=== PATIENT | male | born 1960 | race Caucasian/White ===

== ENCOUNTER 2017-06-06 11:02 | Emergency (ER) | payer SELFPAY ==
--- NOTE | 2017-06-06 11:49 | ER Document Report ---
ED Medical Screen (RME) - General Chief Complaint: Breathing Difficulty Stated Complaint: BREATHING DIFFICULTY Time Seen by Provider: 06/06/17 11:47 Notes: Patient states she has a history of COPD and congestive heart failure. He states he has had no medication since December 2016. He now complains of severe shortness of breath chest tightness and leg swelling. TRAVEL OUTSIDE OF THE [place] IN LAST 30 DAYS: No - Related Data Allergies/Adverse Reactions: No Known Allergies Allergy (Verified 06/06/17 11:08) Past Medical History - Social History Chew tobacco use (# tins/day): No Frequency of alcohol use: Occasional Drug Abuse: None - Past Medical History Cardiac Medical History: Reports: Hx Congestive Heart Failure Pulmonary Medical History: Reports: Hx COPD Renal/ Medical History: Denies: Hx Peritoneal Dialysis Psychiatric Medical History: Denies: Hx Depression Past Surgical History: Reports: Hx Appendectomy, Hx Cardiac Surgery - heart surgery at age 16 - Immunizations Hx Diphtheria, Pertussis, Tetanus Vaccination: No Physical Exam - Vital signs Vitals: Temp Pulse Resp BP Pulse Ox 98.2 F 87 20 131/87 H 94 06/06/17 11:30 06/06/17 11:30 06/06/17 11:30 06/06/17 11:30 06/06/17 11:30 Course - Vital Signs Vital signs: Temp Pulse Resp BP Pulse Ox 98.2 F 87 20 131/87 H 94 06/06/17 11:30 06/06/17 11:30 06/06/17 11:30 06/06/17 11:30 06/06/17 11:30
--- NOTE | 2017-06-06 11:59 | ER Document Report ---
ED General - General Chief Complaint: Breathing Difficulty Stated Complaint: BREATHING DIFFICULTY Time Seen by Provider: 06/06/17 11:47 Notes: Patient is a 56-year-old male who presents emergency department with a chief complaint of chest tightness, shortness of breath, dyspnea on exertion for the past 2 weeks. He denies any productive cough, chest pain, nausea, vomiting, epigastric pain, pleurisy. Patient states that he has a history of congestive heart failure, COPD. Patient states that he used to take medications at home but has not been taking them for the past 6 months. Patient states that he was previously living in [place] to take care of his mother and is recently moved back. States that his primary care is with [facility] but he has not been able to establish follow-up with them to get his home medications. He states that he has been watching his sodium and fluid intake due to his history of CHF. Past medical history significant for COPD, CHF, hypertension Past surgical history significant for previous sternotomy when he was 17 for PDA closure, previous appendectomy Social history admits to half a pack a day, former alcohol user, admits to social marijuana use. 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 TRAVEL OUTSIDE OF THE [place] IN LAST 30 DAYS: No - Related Data Allergies/Adverse Reactions: No Known Allergies Allergy (Verified 06/06/17 11:08) Past Medical History - Social History Smoking Status: Current Every Day Smoker Chew tobacco use (# tins/day): No Frequency of alcohol use: Occasional Drug Abuse: None Family History: Reviewed & Not Pertinent Patient has suicidal ideation: No Patient has homicidal ideation: No - Past Medical History Cardiac Medical History: Reports: Hx Congestive Heart Failure Pulmonary Medical History: Reports: Hx COPD Renal/ Medical History: Denies: Hx Peritoneal Dialysis Psychiatric Medical History: Denies: Hx Depression Past Surgical History: Reports: Hx Appendectomy, Hx Cardiac Surgery - heart surgery at age 16 - Immunizations Hx Diphtheria, Pertussis, Tetanus Vaccination: No Review of Systems - Review of Systems Constitutional: No symptoms reported Cardiovascular: No symptoms reported Respiratory: See HPI Gastrointestinal: No symptoms reported Musculoskeletal: No symptoms reported Neurological/Psychological: No symptoms reported -: Yes All other systems reviewed and negative Physical Exam - Vital signs Vitals: Temp Pulse Resp BP Pulse Ox 98.2 F 87 20 131/87 H 94 06/06/17 11:30 06/06/17 11:30 06/06/17 11:30 06/06/17 11:30 06/06/17 11:30 - Notes Notes: PHYSICAL EXAM GENERAL: Alert, interacts well. HEAD: Normocephalic, atraumatic. EYES: Pupils equal, round, and reactive to light. Extraocular movements intact. ENT: Oral mucosa moist, tongue midline. NECK: Full range of motion. Supple. Trachea midline. LUNGS: Diffuse wheezes and rhonchi without rales. No rales. No respiratory distress. HEART: Regular rate and rhythm. No murmurs, gallops, or rubs. ABDOMEN: Soft, nondistended, nontender. No guarding, rebound, or rigidity.. Bowel sounds present in all 4 quadrants. EXTREMITIES: Moves all 4 extremities spontaneously. No edema, radial and dorsalis pedis pulses 2/4 bilaterally. No cyanosis. NEUROLOGICAL: Alert and oriented x4. Normal speech. PSYCH: Normal affect, normal mood. SKIN: Warm, dry, normal turgor. No rashes or lesions noted. Course - Re-evaluation Re-evalutation: 06/06/17 14:26 Patient is a 56-year-old male who is hemodynamically stable, no acute distress and afebrile. Presentation is consistent with COPD exacerbation in the setting of chronic congestive heart failure. Patient does not meet requirements at this time for inpatient care of his CHF. Patient does not appear to be fluid overloaded at this time. Patient states he feels much better and chest tightness resolved after multiple duo nebs, prednisone administered in the department. Patient was able to ambulate without any clinical tachypnea, tachycardia noted. Patient requesting to be discharged at this time. Discussed with him strict return precautions and otherwise had case management establish a relationship to see if he qualifies for Medicaid versus criteria for [facility] follow-[facility]. - Vital Signs Vital signs: Temp Pulse Resp BP Pulse Ox 97.6 F 99 21 H 128/86 H 94 06/06/17 13:30 06/06/17 13:37 06/06/17 13:37 06/06/17 13:30 06/06/17 13:37 - Laboratory Result Diagrams: 06/06/17 11:55 06/06/17 11:55 Laboratory results interpreted by me: 06/06/17 11:55 RBC 4.14 L MCV 99 H RDW 14.1 H - Diagnostic Test Radiology reviewed: Image reviewed, Reports reviewed - EKG Interpretation by Me EKG shows normal: Sinus rhythm Rate: Normal Rhythm: NSR When compared to previous EKG there are: No significant change Discharge - Discharge Clinical Impression: COPD exacerbation Condition: Good Disposition: HOME, SELF-CARE Additional Instructions: Chronic Obstructive Lung Disease You have chronic obstructive lung disease (COPD). The symptoms come from emphysema (damage to small airways, with trapping of air in large sacks in the lung) and chronic bronchitis (repeated infection and damage to larger airways). The cause is almost always cigarette smoking, although dust exposure, asthma, and infections contribute. You should avoid fumes, dust, and smoke (especially tobacco smoke). Your condition will flare from time to time. There is no cure, but the symptoms can be treated. Bronchodilators (asthma medicine) are often helpful. Antibiotics help when infection is present. When shortness of breath is severe, we may prescribe cortisone medication. If medicine doesn't help enough, we can arrange for you to have an oxygen tank at home. Notify your doctor at once if sputum becomes thick, foul, or bloody, if you develop a fever or chest pain, or if your shortness of breath worsens. Our test case developer will be in contact to establish primary care for you. Please be sure to complete your medicaid application Prescriptions: Albuterol Sulfate [Proair HFA Inhalation Aerosol 8.5 gm MDI] 2 puff IH Q4H PRN # 1 mdi PRN Reason: Prednisone [Deltasone 20 mg Tablet] 3 tab PO DAILY 5 Days tablet Forms: Smoking Cessation Education Referrals: [facility] [Primary Care Provider] - Follow up in 3-5 days [facility] [Provider Group] - Follow up in 3-5 days
[2017-06-06 12:16] LABS: ABSOLUTE BASOPHILS # (AUTO) 0.1 10^3/uL (0.0-0.2); ABSOLUTE EOSINOPHILS # (AUTO) 0.4 10^3/uL (0.0-0.6); ABSOLUTE LYMPHOCYTES (AUTO) 1.4 10^3/uL (0.5-4.7); ABSOLUTE MONOCYTES (AUTO) 0.7 10^3/uL (0.1-1.4); ABSOLUTE NEUT (AUTO) 4.9 10^3/uL (1.7-8.2); BASOPHILS % (AUTO) 0.8 % (0-2); EOSINOPHILS % (AUTO) 5.4 % (0-6); HEMATOCRIT 40.8 % (37.9-51.0); HEMOGLOBIN 13.6 g/dL (13.5-17.0); LYMPHOCYTES % (AUTO) 19.2 % (13-45); MEAN CORPUSCULAR HEMOGLOBIN 32.8 pg (27.0-33.4); MEAN CORPUSCULAR HGB CONC 33.3 g/dL (32.0-36.0); MEAN CORPUSCULAR VOLUME 99 fl (80-97); MONOCYTES % (AUTO) 8.9 % (3-13); PLATELET COUNT 254 10^3/uL (150-450); RED BLOOD COUNT 4.14 10^6/uL (4.35-5.55); RED CELL DISTRIBUTION WIDTH 14.1 % (11.5-14.0); SEGMENTED NEUTROPHILS % (AUTO) 65.7 % (42-78); TOTAL CELLS COUNTED % (AUTO) 100 %; WHITE BLOOD COUNT 7.5 10^3/uL (4.0-10.5)
--- NOTE | 2017-06-06 12:19 | RADIOLOGY REPORT (SQ) ---
EXAM DESCRIPTION: CHEST PA/LAT COMPLETED DATE/TIME: 06/06/2017 12:10 pm REASON FOR STUDY: sob COMPARISON: Chest films 10/24/2015, 09/08/2015 CT angio chest 04/19/2013 EXAM PARAMETERS: NUMBER OF VIEWS: two views TECHNIQUE: Digital Frontal and Lateral radiographic views of the chest acquired. RADIATION DOSE: NA LIMITATIONS: none FINDINGS: LUNGS AND PLEURA: Few Juan lines at both lung bases with trace fluid in the major and mi nor fissures, question very mild fluid overload with interstitial edema. Lungs are otherwise hyperinflated and hyperlucent but clear. MEDIASTINUM AND HILAR STRUCTURES: No masses or contour abnormalities. HEART AND VASCULAR STRUCTURES: Moderate to marked cardiomegaly, old sternotomy BONES: Osteoporotic HARDWARE: None in the chest. OTHER: No other significant finding. IMPRESSION: Juan lines at both bases, trace fluid in the major and minor fissures. Suspect mild f luid overload or congestive failure TECHNICAL DOCUMENTATION: JOB ID: [id number] [employer]- All Rights Reserved
[2017-06-06] MEDS ORDERED: IPRATROPIUM/ALBUTEROL 0.5-2.5 MG/3 ML AMPUL NEB ONE (12:26)
[2017-06-06] MEDS ORDERED: PREDNISONE 20 MG TABLET PO ONE (12:26)
[2017-06-06 12:34] LABS: ALANINE AMINOTRANSFERASE 27 U/L (21-72); ALBUMIN 4.2 g/dL (3.5-5.0); ALKALINE PHOSPHATASE 45 U/L (38-126); ANION GAP 9 (5-19); ASPARTATE AMINO TRANSFERASE 29 U/L (17-59); BILIRUBIN,DIRECT 0.3 mg/dL (0.0-0.4); BILIRUBIN,TOTAL 0.7 mg/dL (0.2-1.3); BLOOD UREA NITROGEN 16 mg/dL (7-20); CALCIUM 9.7 mg/dL (8.4-10.2); CARBON DIOXIDE 30 mmol/L (22-30); CHLORIDE 102 mmol/L (98-107); GLUCOSE 81 mg/dL (75-110); POTASSIUM 4.5 mmol/L (3.6-5.0); SODIUM 140.7 mmol/L (137-145); TOTAL PROTEIN 6.9 g/dL (6.3-8.2)
[2017-06-06 12:56] LABS: NT PRO BNP 453 pg/mL (5-900)
[2017-06-06 12:57] LABS: TROPONIN I < 0.012 ng/mL
[2017-06-06] MEDS: ALBUTEROL SULFATE 0.083% NEB 2.5 MG/3 ML AMPUL NEB SCH ×2 (13:01→13:20)
[2017-06-06 14:08] VITALS: BP 128/86
--- NOTE | 2017-06-06 21:23 | EKG REPORT ---
SEVERITY:- ABNORMAL ECG - SINUS RHYTHM NONSPECIFIC INTRAVENTRICULAR CONDUCTION DELAY LEFT VENTRICULAR HYPERTROPHY : Confirmed by: Cesilia Akins 06-Jun-2017 21:22:16
== END 2017-06-06 14:43 | disposition home or self-care (01) ==
LOC: ER 11:02
DX: J44.1 Chronic obstructive pulmonary disease with (acute) exacerbation (principal); F17.210 Nicotine dependence, cigarettes, uncomplicated; I11.0 Hypertensive heart disease with heart failure; I50.9 Heart failure, unspecified
CPT/HCPCS: 93005; 94640 ×2; 99285; 36415; 85025; 80053; 84484; 83880; 71046; 93010; J7512; J7620

== ENCOUNTER 2017-06-23 06:32 | Inpatient (IN) | payer SELFPAY ==
[2017-06-23] MEDS ORDERED: ALBUTEROL SULFATE 0.083% NEB 2.5 MG/3 ML AMPUL NEB ONE (06:37)
[2017-06-23] MEDS ORDERED: IPRATROPIUM BROMIDE 0.02% NEB 0.5 MG/2.5 ML AMPUL NEB ONE (06:37)
[2017-06-23] MEDS ORDERED: IPRATROPIUM/ALBUTEROL 0.5-2.5 MG/3 ML AMPUL NEB ONE (06:38)
--- NOTE | 2017-06-23 06:38 | ER Document Report ---
ED Respiratory Problem - General Stated Complaint: BREATHING DIFFICULTY Time Seen by Provider: 06/23/17 06:35 Notes: 56-year-old male to the emergency department chief complaint of difficulty breathing. History of COPD. History of CHF. States that he does not have regular medical care. Has not been to a doctor in almost a year. Was supposed to be on multiple medications for his heart but has been taking it. Does smoke cigarettes as well as marijuana. Has been drinking tonight as well. EMS was called when he felt like he could not breathe. Apparently had low oxygen saturations on arrival. Breathing treatment was started. Solu-Medrol was given in route. IV established. At this time patient with oxygen saturations of 88%. Patient seen immediately on arrival. Patient denies any chest pain at this time. Denies any abdominal pain. Denies any fever. No previous history of DVT or pulmonary embolism. Patient was supposed to be on digoxin, lisinopril , furosemide, aspirin but has not taken any of this in several months. TRAVEL OUTSIDE OF THE [place] IN LAST 30 DAYS: No - HPI Patient complains to provider of: CHF, COPD, Short of breath Onset: Last week Duration: Continuous, Worse/persistent Severity: Moderate Pain Level: 3 Context: Hx CHF, Hx COPD. denies: DVT Short of Breath: Severe Cough: Nonproductive Sputum amount: None - Related Data Allergies/Adverse Reactions: No Known Allergies Allergy (Verified 06/06/17 11:08) Past Medical History - General Information source: Patient - Social History Smoking Status: Current Every Day Smoker Cigarette use (# per day): Yes Frequency of alcohol use: Social Drug Abuse: Marijuana Lives with: Alone Family History: Reviewed & Not Pertinent - Past Medical History Cardiac Medical History: Reports: Hx Congestive Heart Failure Pulmonary Medical History: Reports: Hx COPD Renal/ Medical History: Denies: Hx Peritoneal Dialysis Psychiatric Medical History: Denies: Hx Depression Past Surgical History: Reports: Hx Appendectomy, Hx Cardiac Surgery - heart surgery at age 16 - Immunizations Hx Diphtheria, Pertussis, Tetanus Vaccination: No Review of Systems - Review of Systems Constitutional: denies: Fever, Malaise, Weakness EENT: denies: Blurred vision, Throat pain, Throat swelling Cardiovascular: Heart racing, Orthopnea, Dyspnea. denies: Chest pain, Palpitations, Syncope, Edema Respiratory: Cough, Short of breath, Wheezing Gastrointestinal: denies: Abdominal pain, Diarrhea, Nausea Genitourinary: denies: Burning, Dysuria, Discharge Musculoskeletal: denies: Back pain, Gout, Joint pain, Joint swelling, Muscle pain Skin: denies: Lesions, Rash Hematologic/Lymphatic: denies: Anemia, Blood clots, Easy bleeding, Easy bruising Neurological/Psychological: denies: Depression, Weakness, Headaches, Numbness Physical Exam - Vital signs Vitals: Resp BP Pulse Ox 22 H 121/91 H 86 L 06/23/17 06:38 06/23/17 06:38 06/23/17 06:38 Interpretation: Tachycardic - General General appearance: Appears well, Alert - HEENT Head: Normocephalic Eyes: Normal - Respiratory Respiratory status: No respiratory distress Chest status: Nontender Breath sounds: Decreased air movement, Nonproductive cough, Wheezing Chest palpation: Normal - Cardiovascular Rhythm: Tachycardia Heart sounds: Normal auscultation Murmur: No - Abdominal Inspection: Normal Distension: No distension Bowel sounds: Normal Tenderness: Nontender Organomegaly: No organomegaly - Back Back: Normal, Nontender - Extremities General upper extremity: Normal inspection, Nontender, Normal color, Normal ROM , Normal temperature General lower extremity: Normal inspection, Nontender, Normal color, Normal ROM , Normal temperature, Normal weight bearing. No: Nicolle's sign - Neurological Neuro grossly intact: Yes Cognition: Normal Orientation: AAOx4 Shivam Coma Scale Eye Opening: Spontaneous [place] Coma Scale Verbal: Oriented [place] Coma Scale Motor: Obeys Commands [place] Coma Scale Total: 15 Speech: Normal Motor strength normal: LUE, RUE, LLE, RLE Sensory: Normal - Psychological Associated symptoms: Normal affect, Normal mood - Skin Skin Temperature: Warm Skin Moisture: Dry Skin Color: Normal Course - Re-evaluation Re-evalutation: 06/23/17 06:54 Patient hypoxic on arrival with oxygen saturations of 88% on room air. Patient given hour-long breathing treatment. Solu-Medrol given in route. Will order cardiac labs including BNP, troponin, CK CK-MB, chest x-ray and reassess. 06/23/17 08:31 Hypoxic when taking off oxygen. Has CHF and COPD. Patient will need to be admitted at this time. Consulted hospitalist who will admit at this time - Vital Signs Vital signs: Temp Pulse Resp BP Pulse Ox 22 H 116/84 93 06/23/17 07:00 06/23/17 07:00 06/23/17 07:00 - Laboratory Result Diagrams: 06/23/17 06:38 06/23/17 06:38 Laboratory results interpreted by me: 06/23/17 06/23/17 06:38 06:38 RBC 4.05 L MCV 100 H MCH 33.6 H Sodium 130.9 L Chloride 95 L Calcium 8.1 L Total Protein 6.2 L - EKG Interpretation by Me EKG shows normal: Intervals, QRS Complexes, ST-T Waves Rate: Tachycardia [place]/QRS: Left axis deviation Critical Care Note - Critical Care Note Total time excluding time spent on procedures (mins): 35 Comments: Hypoxia, respiratory failure, consultation with specialists Discharge - Discharge Clinical Impression: COPD with exacerbation CHF exacerbation Qualifiers: Heart failure type: unspecified Qualified Code(s): I50.9 - Heart failure, unspecified Disposition: ADMITTED INPATIENT Admitting Provider: Hospitalist - [facility] Unit Admitted: Telemetry
[2017-06-23] MEDS ORDERED: ALBUTEROL SULFATE 0.083% NEB 2.5 MG/3 ML AMPUL NEB SCH (06:53)
[2017-06-23 06:55] LABS: ABSOLUTE EOSINOPHILS # (AUTO) 0.3 10^3/uL (0.0-0.6); ABSOLUTE LYMPHOCYTES (AUTO) 1.5 10^3/uL (0.5-4.7); ABSOLUTE MONOCYTES (AUTO) 0.5 10^3/uL (0.1-1.4); ABSOLUTE NEUT (AUTO) 6.4 10^3/uL (1.7-8.2); BASOPHILS % (AUTO) 0.4 % (0-2); EOSINOPHILS % (AUTO) 3.6 % (0-6); HEMATOCRIT 40.5 % (37.9-51.0); HEMOGLOBIN 13.6 g/dL (13.5-17.0); LYMPHOCYTES % (AUTO) 17.1 % (13-45); MEAN CORPUSCULAR HEMOGLOBIN 33.6 pg (27.0-33.4); MEAN CORPUSCULAR HGB CONC 33.6 g/dL (32.0-36.0); MEAN CORPUSCULAR VOLUME 100 fl (80-97); MONOCYTES % (AUTO) 6.3 % (3-13); PLATELET COUNT 224 10^3/uL (150-450); RED BLOOD COUNT 4.05 10^6/uL (4.35-5.55); RED CELL DISTRIBUTION WIDTH 13.8 % (11.5-14.0); SEGMENTED NEUTROPHILS % (AUTO) 72.6 % (42-78); TOTAL CELLS COUNTED % (AUTO) 100 %; WHITE BLOOD COUNT 8.8 10^3/uL (4.0-10.5)
[2017-06-23 07:22] LABS: ALANINE AMINOTRANSFERASE 28 U/L (21-72); ALKALINE PHOSPHATASE 44 U/L (38-126); ANION GAP 10 (5-19); ASPARTATE AMINO TRANSFERASE 36 U/L (17-59); BILIRUBIN,DIRECT 0.1 mg/dL (0.0-0.4); BILIRUBIN,TOTAL 0.5 mg/dL (0.2-1.3); BLOOD UREA NITROGEN 10 mg/dL (7-20); CALCIUM 8.1 mg/dL (8.4-10.2); CARBON DIOXIDE 26 mmol/L (22-30); CHLORIDE 95 mmol/L (98-107); CREATINE KINASE 143 U/L (55-170); GLUCOSE 104 mg/dL (75-110); POTASSIUM 4.3 mmol/L (3.6-5.0); SODIUM 130.9 mmol/L (137-145); TOTAL PROTEIN 6.2 g/dL (6.3-8.2)
[2017-06-23 07:32] LABS: CREATINE KINASE MB 2.51 ng/mL (<4.55); TROPONIN I 0.022 ng/mL
--- NOTE | 2017-06-23 08:14 | RADIOLOGY REPORT (SQ) ---
EXAM DESCRIPTION: CHEST SINGLE VIEW COMPLETED DATE/TIME: 06/23/2017 7:08 am REASON FOR STUDY: sob COMPARISON: 06/06/2017 EXAM PARAMETERS: NUMBER OF VIEWS: One view. TECHNIQUE: Single frontal radiographic view of the chest acquired. RADIATION DOSE: NA LIMITATIONS: None. FINDINGS: LUNGS AND PLEURA: Small left-sided pleural effusion. Juan B lines present bilaterally i n the lung bases. MEDIASTINUM AND HILAR STRUCTURES: Indistinctness of the pulmonary vasculature HEART AND VASCULAR STRUCTURES: Cardiomegaly, stable given differences in technique. BONES: No acute findings. HARDWARE: Stable appearing sternotomy wires OTHER: No other significant finding. IMPRESSION: Findings consistent with congestive heart failure and small left-sided pleural effusion TECHNICAL DOCUMENTATION: JOB ID: [id number] [employer]- All Rights Reserved Reading location - IP/workstation name: [email or web address]
[2017-06-23] MEDS ORDERED: FUROSEMIDE INJ/PF 20 MG/2 ML SDV IV ONE (08:24)
[2017-06-23] MEDS ORDERED: NITROGLYCERIN 2% OINTMENT 1 GM PACKET TP ONE (08:24)
[2017-06-23] MEDS ORDERED: CEFTRIAXONE 1 GM/D5W RTU 1 GM/50 ML RTUPB IV ONE (08:25)
[2017-06-23] MEDS ORDERED: ONDANSETRON HCL INJ/PF 4 MG/2 ML SDV IV PRN (08:33)
[2017-06-23] MEDS ORDERED: ALBUTEROL SULFATE 0.083% NEB 2.5 MG/3 ML AMPUL NEB PRN (08:33)
[2017-06-23] MEDS ORDERED: ZOLPIDEM TARTRATE 5 MG TABLET PO PRN (08:33)
[2017-06-23] MEDS ORDERED: OXYCODONE-ACETAMINOPHEN 5-325 MG TABLET PO PRN (08:33)
[2017-06-23] MEDS ORDERED: LORAZEPAM INJ 2 MG/1 ML VIAL IV PRN (08:43)
[2017-06-23] MEDS ORDERED: FUROSEMIDE INJ/PF 40 MG/4 ML SDV IV SCH (08:45)
--- NOTE | 2017-06-23 08:46 | EKG REPORT ---
SEVERITY:- ABNORMAL ECG - SINUS TACHYCARDIA NONSPECIFIC INTRAVENTRICULAR CONDUCTION DELAY PROBABLE LEFT VENTRICULAR HYPERTROPHY : Confirmed by: Elliott Patel MD 23-Jun-2017 08:45:34
[2017-06-23] MEDS: FUROSEMIDE INJ/PF 40 MG/4 ML SDV IV SCH ×2 (12:19→21:42)
[2017-06-23] MEDS: ASPIRIN 81 MG TABLET, ENT COATED PO SCH (12:19)
[2017-06-23] MEDS: METHYLPREDNISOLONE INJ 40 MG/1 ML SDV IV SCH ×2 (12:19→21:26)
[2017-06-23] MEDS: ACETAMINOPHEN 325 MG TABLET PO PRN (12:20)
[2017-06-23] MEDS: MULTIVITAMIN TABLET PO SCH (12:20)
[2017-06-23] MEDS: LISINOPRIL 5 MG TABLET PO SCH (12:20)
[2017-06-23] MEDS: METOPROLOL SUCCINATE 25 MG TAB.SR.24H PO SCH (12:21)
[2017-06-23] MEDS: THIAMINE HCL 100 MG TABLET PO SCH (12:21)
[2017-06-23] MEDS: AZITHROMYCIN 250 MG TABLET PO SCH (12:21)
[2017-06-23] MEDS: DOCUSATE SODIUM 100 MG CAPSULE PO SCH (12:22)
[2017-06-23] MEDS ORDERED: NICOTINE 7 MG/24 HR PATCH.TD24 TD PRN (13:06)
--- NOTE | 2017-06-23 13:28 | PDOC H&P ---
History of Present Illness Admission Date/PCP: 06/23/17 08:41 Patient complains of: Shortness of breath worse since last night History of Present Illness: GRETEL MYLES is a 56 year old malePresented to emergency room complaining of having shortness of breath for the past 5-6 month however got worse since last night. Patient states that he went to sleep and upon awakening the shortness of breath was worse. It was so severe that he threw up. He does not describe chest pain. Accordingly he has not been taking his regular medication for the past 6 months. [facility] had [facility] but [facility] had to cancel his appointments in the past. In addition he was not given refill for his medications. He does not have insurance however states that he can go to [facility] and get the medications if he had refills. Most of his care has been rendered by coming to emergency room. Patient denies fever, chills. Patient also denies cough. Patient admits a history of heart surgery due to what it appears to be an valvular heart disease when he was younger. He also admits as to drinking alcohol but denies getting the shakes if he does not drink on a regular basis. He continues smoking and a pack would last night about 2-3 days. Patient reports some improvement. Accordingly he was saturating around 88% when evaluated in emergency room requiring to be placed on oxygen. During the course of evaluation in emergency room patient was treated with Lasix IV, duo nebs, Solu-Medrol, nitro and Rocephin. Due to comorbidities and presentation the hospitalist service was contacted for further evaluation and prompted to admit Past Medical History Cardiac Medical History: Reports: Congestive Heart Failure, Heart Murmur Pulmonary Medical History: Reports: Chronic Obstructive Pulmonary Disease (COPD) EENT Medical History: Reports: None Neurological Medical History: Reports: None Endocrine Medical History: Reports: None Renal/ Medical History: Reports: None Malignancy Medical History: Reports: None GI Medical History: Reports: None Musculoskeltal Medical History: Reports: None Skin Medical History: Reports: None Psychiatric Medical History: Reports: None, Alcohol Dependency, Tobacco Dependency Traumatic Medical History: Reports: None Hematology: Reports: None Infectious Medical History: Reports: None Past Surgical History Past Surgical History: Reports: Appendectomy, Vascular Surgery Social History Information Source: Patient Lives with: Family Smoking Status: Current Every Day Smoker Cigars Per Day: 7 Frequency of Alcohol Use: Occasional Hx Recreational Drug Use: No Drugs: Marijuana Hx Prescription Drug Abuse: No - Advance Directive Resuscitation Status: Full Code Family History Family History: Hypertension. denies: Reviewed & Not Pertinent Parental Family History Reviewed: Yes Children Family History Reviewed: Yes Sibling(s) Family History Reviewed.: Yes Medication/Allergy Home Medications: Albuterol Sulfate [Proair HFA Inhalation Aerosol 8.5 gm MDI] 2 puff IH Q6HP PRN 06/23/17 Aspirin [Aspirin EC] 81 mg PO DAILY 06/23/17 Carvedilol [Coreg 3.125 mg Tablet] 3.125 mg PO Q12 06/23/17 Digoxin [Lanoxin 0.125 mg Tablet] 0.125 mg PO DAILY 06/23/17 Furosemide [Lasix 40 mg Tablet] 40 mg PO DAILY 06/23/17 Lisinopril [Zestril] 5 mg PO DAILY 06/23/17 Potassium Chloride [Klor-Con 10 Meq Tablet.sa] 20 meq PO BID 06/23/17 Allergies/Adverse Reactions: No Known Allergies Allergy (Verified 06/06/17 11:08) Review of Systems Constitutional: PRESENT: fatigue, weakness. ABSENT: chills, fever(s), night sweats Eyes: ABSENT: visual disturbances Ears: ABSENT: hearing changes Nose, Mouth, and Throat: ABSENT: mouth pain, sore throat Cardiovascular: PRESENT: dyspnea on exertion. ABSENT: chest pain Respiratory: PRESENT: dyspnea. ABSENT: cough Gastrointestinal: PRESENT: nausea, vomiting. ABSENT: abdominal pain Genitourinary: ABSENT: dysuria, hematuria Neurological: PRESENT: weakness. ABSENT: dizziness Psychiatric: ABSENT: anxiety Endocrine: ABSENT: polyphagia, polyuria Physical Exam Vital Signs: Temp Pulse Resp BP Pulse Ox 98.5 F 105 H 19 119/84 94 06/23/17 09:29 06/23/17 09:29 06/23/17 09:29 06/23/17 09:29 06/23/17 09:29 Intake & Output 06/22/17 06/23/17 06/24/17 06:59 06:59 06:59 Output Total 600 Balance -600 Results Laboratory Results: 06/23/17 11:06 Lactic Acid 3.4 H Impressions: Chest X-Ray 06/23/17 06:36 IMPRESSION: Findings consistent with congestive heart failure and small left- sided pleural effusion Assessment & Plan - Diagnosis (1) Acute on chronic combined systolic and diastolic CHF (congestive heart failure) Is this a current diagnosis for this admission?: Yes Plan: Patient will be admitted to telemetry unit and will continue with diuresis. Patient will be placed on Toprol-XL and low-dose those lisinopril. Will trend renal. Patient has been advised as to quit drinking alcohol and stop smoking (2) Acute respiratory failure with hypoxia Is this a current diagnosis for this admission?: Yes Plan: Will supplement oxygen and will wean off as tolerated (3) Cardiomyopathy Qualifiers: Cardiomyopathy type: alcoholic Qualified Code(s): I42.6 - Alcoholic cardiomyopathy Is this a current diagnosis for this admission?: Yes Plan: Reviewed old echocardiogram on 2016 and appears more consistent with alcoholic cardiomyopathy. (4) Alcohol abuse Is this a current diagnosis for this admission?: Yes Plan: Patient has been educated about quitting. He will be placed on thiamine, multivitamin and will order Ativan IV as needed for agitation (5) Tobacco abuse Is this a current diagnosis for this admission?: Yes Plan: Patient has been educated about quitting and problems secondary to nicotine such as heart attack, stroke, emphysema, circulation problems, cancer (6) Hyponatremia Is this a current diagnosis for this admission?: Yes Plan: Likely due to fluid overload. We will trend (7) Mitral regurgitation Qualifiers: Cardiac valve disease etiology: etiology unspecified Qualified Code(s): I34.0 - Nonrheumatic mitral (valve) insufficiency Is this a current diagnosis for this admission?: Yes Plan: Will order echocardiogram to see if any progression but this patient may need to be evaluated by cardiology regarding input of replacement (8) Pulmonary hypertension Is this a current diagnosis for this admission?: Yes Plan: May relate to systolic and diastolic dysfunction however I am also concerned about the possibility that may relate to valvular heart disease. Echocardiogram has been requested (9) COPD (chronic obstructive pulmonary disease) Qualifiers: Emphysema type: unspecified Is this a current diagnosis for this admission?: Yes Plan: Patient will be placed on nebulizer treatment, IV steroids. It does not appear to be an exacerbation with leg is usually the case is difficult to separate one problem versus the other - Time Time Spent: 50 to 70 Minutes Medications reviewed and adjusted accordingly: Yes Anticipated discharge: Home Within: within 72 hours - Inpatient Certification Based on my medical assessment, after consideration of the patient's comorbidities, presenting symptoms, or acuity I expect that the services needed warrant INPATIENT care.: Yes I certify that my determination is in accordance with my understanding of Medicare's requirements for reasonable and necessary INPATIENT services [42 CFR 412.3e].: Yes Medical Necessity: Need Close Monitoring Due to Risk of Patient Decompensation, Need For Continuous Telemetry Monitoring, Need for Nebulizer Therapy and Monitoring of Response
[2017-06-23] MEDS: IPRATROPIUM/ALBUTEROL 0.5-2.5 MG/3 ML AMPUL NEB SCH ×2 (13:48→19:51)
[2017-06-23] MEDS: HEPARIN SOD (PORCINE) 5,000 UNIT/ML 1 ML SYRINGE SUBCUT SCH ×2 (15:28→21:26)
[2017-06-23] MEDS: ATORVASTATIN CALCIUM 40 MG TABLET PO SCH (21:26)
[2017-06-24 04:08] LABS: URINE AMPHETAMINES SCREEN NEGATIVE; URINE BARBITURATES SCREEN NEGATIVE; URINE BENZODIAZEPINES SCREEN NEGATIVE; URINE COCAINE SCREEN NEGATIVE; URINE METHADONE SCREEN NEGATIVE; URINE PHENCYCLIDINE SCREEN NEGATIVE
[2017-06-24 04:11] LABS: URINE MARIJUANA (THC) SCREEN UNCONFIRMED POSITIVE
[2017-06-24] MEDS: HEPARIN SOD (PORCINE) 5,000 UNIT/ML 1 ML SYRINGE SUBCUT SCH ×3 (06:21→22:10)
[2017-06-24 06:55] LABS: HEMATOCRIT 38.7 % (37.9-51.0); MEAN CORPUSCULAR HEMOGLOBIN 33.2 pg (27.0-33.4); MEAN CORPUSCULAR HGB CONC 33.5 g/dL (32.0-36.0); MEAN CORPUSCULAR VOLUME 99 fl (80-97); PLATELET COUNT 221 10^3/uL (150-450); RED CELL DISTRIBUTION WIDTH 14.2 % (11.5-14.0); WHITE BLOOD COUNT 12.4 10^3/uL (4.0-10.5)
[2017-06-24 07:09] LABS: ANION GAP 8 (5-19); BLOOD UREA NITROGEN 16 mg/dL (7-20); CALCIUM 8.6 mg/dL (8.4-10.2); CARBON DIOXIDE 34 mmol/L (22-30); CHLORIDE 96 mmol/L (98-107); GLUCOSE 122 mg/dL (75-110); POTASSIUM 4.4 mmol/L (3.6-5.0); SODIUM 137.8 mmol/L (137-145)
[2017-06-24 07:49] LABS: ABSOLUTE LYMPHOCYTES# (MANUAL) 0.5 10^3/uL (0.5-4.7); ABSOLUTE MONOCYTES # (MANUAL) 0.6 10^3/uL (0.1-1.4); ABSOLUTE NEUTROPHILS# (MANUAL) 11.3 10^3/uL (1.7-8.2); BAND NEUTROPHILS % (MANUAL) 2 % (3-5); BASOPHILS % (MANUAL) 0 % (0-2); EOSINOPHILS % (MANUAL) 0 % (0-6); LYMPHOCYTES % (MANUAL) 4 % (13-45); MONOCYTES % (MANUAL) 5 % (3-13); PLATELET COMMENT ADEQUATE; SEGMENTED NEUTROPHILS % (MAN) 89 % (42-78); TOTAL CELLS COUNTED 100
[2017-06-24 07:50] LABS: RBC MORPHOLOGY COMMENT NORMO-CYTIC/CHROMIC
[2017-06-24] MEDS: IPRATROPIUM/ALBUTEROL 0.5-2.5 MG/3 ML AMPUL NEB SCH ×3 (08:09→19:58)
[2017-06-24] MEDS ORDERED: FUROSEMIDE INJ/PF 40 MG/4 ML SDV IV SCH (08:50)
[2017-06-24] MEDS: MULTIVITAMIN TABLET PO SCH (10:09)
[2017-06-24] MEDS: AZITHROMYCIN 250 MG TABLET PO SCH (10:10)
[2017-06-24] MEDS: DOCUSATE SODIUM 100 MG CAPSULE PO SCH (10:10)
[2017-06-24] MEDS: METOPROLOL SUCCINATE 25 MG TAB.SR.24H PO SCH (10:10)
[2017-06-24] MEDS: ASPIRIN 81 MG TABLET, ENT COATED PO SCH (10:11)
[2017-06-24] MEDS: NICOTINE 14 MG/24 HR PATCH.TD24 TD SCH (10:11)
[2017-06-24] MEDS: THIAMINE HCL 100 MG TABLET PO SCH (10:11)
[2017-06-24] MEDS: LISINOPRIL 5 MG TABLET PO SCH (10:11)
[2017-06-24] MEDS: FUROSEMIDE INJ/PF 20 MG/2 ML SDV IV SCH ×2 (10:12→22:10)
[2017-06-24] MEDS: FLUTICASONE/SALMETEROL DISKUS 250-50 MCG/DOSE IH SCH ×2 (10:28→22:10)
[2017-06-24] MEDS: ACETAMINOPHEN 325 MG TABLET PO PRN (12:39)
--- NOTE | 2017-06-24 14:12 | PDOC PROGRESS REPORT ---
Subjective Progress Note for:: 06/24/17 Subjective:: Patient refers that his breathing is better. He denies chest pain. Patient inquires about the diagnosis of pneumonia and clarified that that was a concern in emergency room however his presentation was consistent with fluid overload Review of systems All organ systems evaluated and negative except as in subjective All laboratories and significant diagnostics have been reviewed Reason For Visit: ACUTE ON CHRONIC COMBINE CONGESTIVE HEART FAILURE Physical Exam Vital Signs: Temp Pulse Resp BP Pulse Ox 97.4 F 93 16 114/77 100 06/24/17 05:00 06/24/17 05:00 06/24/17 05:00 06/24/17 05:00 06/24/17 05:00 Intake & Output 06/23/17 06/24/17 06/25/17 06:59 06:59 06:59 Intake Total 1348 Output Total 1375 Balance -27 Weight 56.6 kg General appearance: PRESENT: cooperative, well-developed, well-nourished Head exam: PRESENT: atraumatic, normocephalic Eye exam: PRESENT: conjunctiva pink, EOMI, PERRLA Ear exam: PRESENT: normal external ear exam Mouth exam: PRESENT: moist Neck exam: PRESENT: full ROM. ABSENT: JVD, lymphadenopathy, tenderness Respiratory exam: PRESENT: clear to auscultation alisa Cardiovascular exam: PRESENT: RRR. ABSENT: diastolic murmur, systolic murmur Vascular exam: PRESENT: normal capillary refill GI/Abdominal exam: PRESENT: normal bowel sounds, soft. ABSENT: tenderness Extremities exam: PRESENT: full ROM, pedal edema Musculoskeletal exam: ABSENT: ambulatory Neurological exam: PRESENT: alert, awake, oriented to person, oriented to place , oriented to time, oriented to situation, CN II-XII grossly intact Psychiatric exam: PRESENT: appropriate affect, normal mood Skin exam: PRESENT: intact, normal color Results Laboratory Results: 06/24/17 05:35 06/23/17 06/23/17 06/24/17 11:06 15:20 05:35 Sodium 137.8 Potassium 4.4 Chloride 96 L Carbon Dioxide 34 H Anion Gap 8 BUN 16 Creatinine 0.85 Est GFR ( Amer) > 60 Est GFR (Non-Af Amer) > 60 Glucose 122 H Lactic Acid 3.4 H 4.9 H Calcium 8.6 06/23/17 06/23/17 15:20 21:35 Troponin I 0.019 0.014 Impressions: Chest X-Ray 06/23/17 06:36 IMPRESSION: Findings consistent with congestive heart failure and small left- sided pleural effusion Assessment & Plan - Diagnosis (1) Acute on chronic combined systolic and diastolic CHF (congestive heart failure) Is this a current diagnosis for this admission?: Yes Plan: Will continue Toprol-XL and low-dose lisinopril. Will decrease Lasix IV. To request a follow-up chest x-ray for the morning. Need to evaluate if fluid buildup is decreasing in since there is a possibility that he may need thoracentesis (2) Acute respiratory failure with hypoxia Is this a current diagnosis for this admission?: Yes Plan: To wean off oxygen as tolerated (3) Cardiomyopathy Qualifiers: Cardiomyopathy type: alcoholic Qualified Code(s): I42.6 - Alcoholic cardiomyopathy Is this a current diagnosis for this admission?: Yes Plan: Reviewed old echocardiogram on 2016 and appears more consistent with alcoholic cardiomyopathy. (4) Alcohol abuse Is this a current diagnosis for this admission?: Yes Plan: Patient has been educated about quitting. Continue thiamine, multivitamin and Ativan IV as needed for agitation (5) Tobacco abuse Is this a current diagnosis for this admission?: Yes Plan: Patient has been educated about quitting and problems secondary to nicotine such as heart attack, stroke, emphysema, circulation problems, cancer. Continue nicotine patch (6) Hyponatremia Is this a current diagnosis for this admission?: Yes Plan: Due to fluid overload load. Resolved since admission (7) Mitral regurgitation Qualifiers: Cardiac valve disease etiology: etiology unspecified Qualified Code(s): I34.0 - Nonrheumatic mitral (valve) insufficiency Is this a current diagnosis for this admission?: Yes Plan: Echocardiogram ordered on admission to see if any progression (8) Pulmonary hypertension Is this a current diagnosis for this admission?: Yes Plan: May relate to systolic and diastolic dysfunction however I am also concerned about the possibility that may relate to valvular heart disease. Echocardiogram has been requested (9) COPD (chronic obstructive pulmonary disease) Qualifiers: Emphysema type: unspecified Is this a current diagnosis for this admission?: Yes Plan: Continue nebulizer treatments, IV steroids and zithromax. (10) Lactic acidosis Is this a current diagnosis for this admission?: Yes Plan: Improved if there are any further aggressive intervention to do with hypoperfusion in the setting of acute on chronic congestive heart failure - Time Time Spent with patient: 15-24 minutes Medications reviewed and adjusted accordingly: Yes Anticipated discharge: Home Within: within 48 hours - Inpatient Certification Based on my medical assessment, after consideration of the patient's comorbidities, presenting symptoms, or acuity I expect that the services needed warrant INPATIENT care.: Yes I certify that my determination is in accordance with my understanding of Medicare's requirements for reasonable and necessary INPATIENT services [42 CFR 412.3e].: Yes Medical Necessity: Need Close Monitoring Due to Risk of Patient Decompensation, Need For Continuous Telemetry Monitoring
[2017-06-24] MEDS: ATORVASTATIN CALCIUM 40 MG TABLET PO SCH (22:10)
[2017-06-25 05:10] LABS: ABSOLUTE EOSINOPHILS # (AUTO) 0.3 10^3/uL (0.0-0.6); ABSOLUTE LYMPHOCYTES (AUTO) 2.4 10^3/uL (0.5-4.7); ABSOLUTE MONOCYTES (AUTO) 0.8 10^3/uL (0.1-1.4); ABSOLUTE NEUT (AUTO) 7.9 10^3/uL (1.7-8.2); BASOPHILS % (AUTO) 0.3 % (0-2); EOSINOPHILS % (AUTO) 2.4 % (0-6); HEMATOCRIT 39.4 % (37.9-51.0); HEMOGLOBIN 13.1 g/dL (13.5-17.0); LYMPHOCYTES % (AUTO) 20.7 % (13-45); MEAN CORPUSCULAR HEMOGLOBIN 33.1 pg (27.0-33.4); MEAN CORPUSCULAR HGB CONC 33.3 g/dL (32.0-36.0); MEAN CORPUSCULAR VOLUME 99 fl (80-97); MONOCYTES % (AUTO) 7.4 % (3-13); PLATELET COUNT 211 10^3/uL (150-450); RED BLOOD COUNT 3.97 10^6/uL (4.35-5.55); RED CELL DISTRIBUTION WIDTH 14.2 % (11.5-14.0); SEGMENTED NEUTROPHILS % (AUTO) 69.2 % (42-78); TOTAL CELLS COUNTED % (AUTO) 100 %; WHITE BLOOD COUNT 11.4 10^3/uL (4.0-10.5)
[2017-06-25 05:36] LABS: ANION GAP 10 (5-19); BLOOD UREA NITROGEN 21 mg/dL (7-20); CALCIUM 8.5 mg/dL (8.4-10.2); CARBON DIOXIDE 33 mmol/L (22-30); CHLORIDE 96 mmol/L (98-107); GLUCOSE 86 mg/dL (75-110); POTASSIUM 3.9 mmol/L (3.6-5.0); SODIUM 139.1 mmol/L (137-145)
[2017-06-25] MEDS: HEPARIN SOD (PORCINE) 5,000 UNIT/ML 1 ML SYRINGE SUBCUT SCH ×3 (05:44→22:07)
[2017-06-25] MEDS: IPRATROPIUM/ALBUTEROL 0.5-2.5 MG/3 ML AMPUL NEB SCH ×3 (08:17→20:15)
--- NOTE | 2017-06-25 09:28 | RADIOLOGY REPORT (SQ) ---
EXAM DESCRIPTION: CHEST PA/LAT COMPLETED DATE/TIME: 06/25/2017 8:12 am REASON FOR STUDY: for follow up COMPARISON: CT angio chest 04/19/2013 Chest films 09/08/2015, 10/24/2015, 06/06/2017 EXAM PARAMETERS: NUMBER OF VIEWS: two views TECHNIQUE: Digital Frontal and Lateral radiographic views of the chest acquired. RADIATION DOSE: NA LIMITATIONS: none FINDINGS: LUNGS AND PLEURA: Minimal blunting of the posterior costophrenic sulci bilaterally from tr maylin pleural fluid. No acute infiltrates. No pneumothorax. No pulmonary vascular congestion. MEDIASTINUM AND HILAR STRUCTURES: No masses or contour abnormalities. HEART AND VASCULAR STRUCTURES: Stable moderate cardiomegaly with midline sternotomy BONES: No acute findings. HARDWARE: None in the chest. OTHER: No other significant finding. IMPRESSION: Trace fluid or atelectasis in the bilateral costophrenic sulci. Stable cardiomegaly. TECHNICAL DOCUMENTATION: JOB ID: [id number] [employer]- All Rights Reserved Reading location - IP/workstation name: [email or web address]
[2017-06-25] MEDS: DOCUSATE SODIUM 100 MG CAPSULE PO SCH (10:24)
[2017-06-25] MEDS: ASPIRIN 81 MG TABLET, ENT COATED PO SCH (10:25)
[2017-06-25] MEDS: AZITHROMYCIN 250 MG TABLET PO SCH (10:25)
[2017-06-25] MEDS: MULTIVITAMIN TABLET PO SCH (10:26)
[2017-06-25] MEDS: THIAMINE HCL 100 MG TABLET PO SCH (10:26)
[2017-06-25] MEDS: FUROSEMIDE INJ/PF 20 MG/2 ML SDV IV SCH ×2 (10:27→22:07)
[2017-06-25] MEDS: FLUTICASONE/SALMETEROL DISKUS 250-50 MCG/DOSE IH SCH ×2 (10:27→22:07)
[2017-06-25] MEDS: NICOTINE 14 MG/24 HR PATCH.TD24 TD SCH (10:27)
[2017-06-25] MEDS: LISINOPRIL 5 MG TABLET PO SCH (10:28)
[2017-06-25] MEDS: METOPROLOL SUCCINATE 25 MG TAB.SR.24H PO SCH (10:28)
--- NOTE | 2017-06-25 12:03 | PDOC PROGRESS REPORT ---
Subjective Progress Note for:: 06/25/17 Subjective:: feels well no SOB no CP Reason For Visit: ACUTE ON CHRONIC COMBINE CONGESTIVE HEART FAILURE Physical Exam Vital Signs: Temp Pulse Resp BP Pulse Ox 97.5 F 81 16 92/59 L 96 06/25/17 07:52 06/25/17 08:17 06/25/17 08:17 06/25/17 07:52 06/25/17 07:52 Intake & Output 06/24/17 06/25/17 06/26/17 00:59 00:59 00:59 Intake Total 748 1170 Output Total 600 1994 Balance 148 -825 Weight 55.7 kg 56.6 kg 56.6 kg General appearance: PRESENT: no acute distress, well-developed, well-nourished Head exam: PRESENT: atraumatic, normocephalic Eye exam: PRESENT: conjunctiva pink, EOMI, PERRLA. ABSENT: scleral icterus Respiratory exam: PRESENT: rales - rtight base. ABSENT: rhonchi, wheezes Pulses: PRESENT: normal dorsalis pedis pul GI/Abdominal exam: PRESENT: normal bowel sounds, soft. ABSENT: distended, guarding, mass, organolmegaly, rebound, tenderness Rectal exam: PRESENT: deferred Extremities exam: PRESENT: full ROM. ABSENT: calf tenderness, clubbing, pedal edema Neurological exam: PRESENT: alert, awake, oriented to person, oriented to place , oriented to time, oriented to situation, CN II-XII grossly intact. ABSENT: motor sensory deficit Results Laboratory Results: 06/25/17 04:09 06/25/17 04:09 06/25/17 06/25/17 04:09 04:09 WBC 11.4 H RBC 3.97 L Hgb 13.1 L Hct 39.4 MCV 99 H MCH 33.1 MCHC 33.3 RDW 14.2 H Plt Count 211 Seg Neutrophils % 69.2 Lymphocytes % 20.7 Monocytes % 7.4 Eosinophils % 2.4 Basophils % 0.3 Absolute Neutrophils 7.9 Absolute Lymphocytes 2.4 Absolute Monocytes 0.8 Absolute Eosinophils 0.3 Absolute Basophils 0.0 Sodium 139.1 Potassium 3.9 Chloride 96 L Carbon Dioxide 33 H Anion Gap 10 BUN 21 H Creatinine 0.91 Est GFR ( Amer) > 60 Est GFR (Non-Af Amer) > 60 Glucose 86 Calcium 8.5 Magnesium 2.2 06/23/17 06/23/17 15:20 21:35 Troponin I 0.019 0.014 Impressions: Chest X-Ray 06/25/17 00:00 IMPRESSION: Trace fluid or atelectasis in the bilateral costophrenic sulci. Stable cardiomegaly. Assessment & Plan - Time Time Spent with patient: (1) Acute on chronic combined systolic and diastolic CHF (congestive heart failure) Is this a current diagnosis for this admission?: Yes Plan: continue present management repeat echo pending cardiology consult (2) Acute respiratory failure with hypoxia Is this a current diagnosis for this admission?: Yes Plan: To wean off oxygen as tolerated (3) Cardiomyopathy Qualifiers: Cardiomyopathy type: alcoholic Qualified Code(s): I42.6 - Alcoholic cardiomyopathy Is this a current diagnosis for this admission?: Yes Plan: Reviewed old echocardiogram on 2015 EF 35% stress test 10/26/2015 no ischemia repeat echo (4) Alcohol abuse Is this a current diagnosis for this admission?: Yes Plan: Patient has been educated about quitting. Continue thiamine, multivitamin and Ativan IV as needed for agitation (5) Tobacco abuse Is this a current diagnosis for this admission?: Yes Plan: Patient has been educated about quitting and problems secondary to nicotine such as heart attack, stroke, emphysema, circulation problems, cancer. Continue nicotine patch (6) Hyponatremia Is this a current diagnosis for this admission?: Yes Plan: Due to fluid overload load. Resolved since admission (7) Mitral regurgitation Qualifiers: Cardiac valve disease etiology: etiology unspecified Qualified Code(s): I34.0 - Nonrheumatic mitral (valve) insufficiency Is this a current diagnosis for this admission?: Yes Plan: Echocardiogram ordered on admission to see if any progression (8) Pulmonary hypertension Is this a current diagnosis for this admission?: Yes Plan: May relate to systolic and diastolic dysfunction however I am also concerned about the possibility that may relate to valvular heart disease. Echocardiogram has been requested (9) COPD (chronic obstructive pulmonary disease) Qualifiers: Emphysema type: unspecified Is this a current diagnosis for this admission?: Yes Plan: Continue nebulizer treatments, IV steroids and zithromax. (10) Lactic acidosis Is this a current diagnosis for this admission?: Yes Plan: Improved if there are any further aggressive intervention to do with hypoperfusion in the setting of acute on chronic congestive heart failure will repeat BMP in am Time Spent with patient: 25-34 minutes
[2017-06-25] MEDS ORDERED: ONDANSETRON HCL INJ/PF 4 MG/2 ML SDV IV PRN (15:30)
[2017-06-25] MEDS ORDERED: OXYCODONE-ACETAMINOPHEN 5-325 MG TABLET PO PRN (15:30)
--- NOTE | 2017-06-25 19:18 | XCELERA REPORT ---
[address] [address] Transthoracic Echocardiogram Report Name: GRETEL MYLES Age: 56 yrs Gender: Male : 1960 Patient Status: Inpatient Patient Location: [address] [place] [address] Study Date: 06/25/2017 02:59 PM Height: 65 in Weight: 129 lb BSA: 1.6 m2 Procedure: A complete two-dimensional transthoracic echocardiogram was performed (2D, M-mode, spectral and color flow Doppler). The study was technically adequate with some images being suboptimal in quality. Reason For Study: chf Ordering Physician: KIRAN CHOUDHARY Performed By: Carine Silva Interpretation Summary The Ejection Fraction estimate is 30-35% Left ventricular systolic function is moderate to severely reduced. LV diastolic function could not be adequately assessed due to significant valve regurgitation and/or stenosis. There is moderate to severe global hypokinesis of the left ventricle. The left ventricle is moderately to severly dilated. There is normal left ventricular wall thickness. The right ventricular systolic function is normal. The right atrium is mildly dilated. The left atrium is moderately dilated. Probable cortriatrum Interarterial septum not well visualized and not well dopplered. Cannot comment on ASD/PFO presence. There is a moderate to severe amount of mitral regurgitation There is no mitral valve stenosis. No aortic regurgitation is present. There is no aortic valve stenosis There is a trace to mild amount of tricuspid regurgitation Right ventricular systolic pressure is at the upper limits of normal The aortic root is not well visualized. The inferior vena cava appeared normal and decreased > 50% with respiration (RAP 5-10 mmHg) There is no pericardial effusion. MMode/2D Measurements & Calculations RVDd: 1.9 cm LVIDd: 7.1 cm FS: 16.7 % Ao root diam: 3.3 cm IVSd: 0.91 cm LVIDs: 5.9 cm EDV(Teich): 265.7 ml LVPWd: 0.85 cm ESV(Teich): 175.3 ml Ao root area: 8.3 cm2 EF(Teich): 34.0 % LA dimension: 4.6 cm Doppler Measurements & Calculations MV E max lance: MV P1/2t max lance: Ao V2 max: LV V1 max P.7 cm/sec 147.4 cm/sec 127.9 cm/sec 2.4 mmHg MV A max lance: MV P1/2t: 92.4 msec Ao max PG: LV V1 max: 90.5 cm/sec 6.5 mmHg 77.9 cm/sec MV E/A: 1.6 MVA(P1/2t): 2.4 cm2 MV dec slope: 467.3 cm/sec2 PA V2 max: PI end-d lance: TR max lance: 74.5 cm/sec 124.9 cm/sec 240.1 cm/sec PA max P.2 mmHg TR max P.1 mmHg Left Ventricle The left ventricle is moderately to severly dilated. There is normal left ventricular wall thickness. Left ventricular systolic function is moderate to severely reduced. The Ejection Fraction estimate is 30-35%. LV diastolic function could not be adequately assessed due to significant valve regurgitation and/or stenosis. There is moderate to severe global hypokinesis of the left ventricle. Right Ventricle The right ventricle is grossly normal size. There is normal right ventricular wall thickness. The right ventricular systolic function is normal. Atria The right atrium is mildly dilated. The left atrium is moderately dilated. Probable cortriatrum. Interarterial septum not well visualized and not well dopplered. Cannot comment on ASD/PFO presence. Mitral Valve There is mild mitral leaflet calcification. There is no mitral valve stenosis. There is a moderate to severe amount of mitral regurgitation. Aortic Valve The aortic valve is not well visualized secondary to technical limitations. There is no aortic valve stenosis. No aortic regurgitation is present. Tricuspid Valve The tricuspid valve is not well visualized secondary to technical limitations. There is no tricuspid stenosis. There is a trace to mild amount of tricuspid regurgitation. Right ventricular systolic pressure is at the upper limits of normal. Pulmonic Valve The pulmonic valve is not well visualized. Great Vessels The aortic root is not well visualized. The inferior vena cava appeared normal and decreased > 50% with respiration (RAP 5-10 mmHg). Effusions There is no pericardial effusion. : KIRAN CHOUDHARY > Cesilia Akins
--- NOTE | 2017-06-25 19:28 | PDOC CONSULTATION ---
Consultation Consult Date: 06/25/17 Attending physician:: SALLIE LÓPEZ Consult reason:: CHF History of Present Illness Admission Date/PCP: 06/23/17 08:41 Patient complains of: Shortness of breath History of Present Illness: GRETEL MYLES is a 56 year old male admitted through the emergency room complaining of having shortness of breath for the past 5-6 month however got worse since last night. Patient states that he went to sleep and upon awakening the shortness of breath was worse. It was so severe that he threw up. He does not describe chest pain. Accordingly he has not been taking his regular medication for the past 6 months. He had [facility] to [facility] but they had to cancel his appointments in the past. In addition he was not given refill for his medications. He does not have insurance however states that he can go to [facility] and get the medications if he had refills. Most of his care has been rendered by coming to emergency room. Patient denies fever, chills. Patient also denies cough. Patient admits a history of heart surgery due to what it appears to be an valvular heart disease when he was younger. He also admits as to drinking alcohol but denies getting the shakes if he does not drink on a regular basis. He continues smoking and a pack would last night about 2-3 days. Patient reports some improvement. Accordingly he was saturating around 88% when evaluated in emergency room requiring to be placed on oxygen. During the course of evaluation in emergency room patient was treated with Lasix IV, duo nebs, Solu-Medrol, nitro and Rocephin. Due to comorbidities and presentation the hospitalist service was contacted for further evaluation and prompted to admit. Past Medical History Cardiac Medical History: Reports: Congestive Heart Failure, Heart Murmur Pulmonary Medical History: Reports: Chronic Obstructive Pulmonary Disease (COPD) EENT Medical History: Reports: None Neurological Medical History: Reports: None Endocrine Medical History: Reports: None Renal/ Medical History: Reports: None Malignancy Medical History: Reports: None GI Medical History: Reports: None Musculoskeltal Medical History: Reports: None Skin Medical History: Reports: None Psychiatric Medical History: Reports: None, Alcohol Dependency, Tobacco Dependency Denies: Depression Traumatic Medical History: Reports: None Hematology: Reports: None Infectious Medical History: Reports: None Past Surgical History Past Surgical History: Reports: Appendectomy, Vascular Surgery Social History Information Source: Patient Lives with: Family Smoking Status: Current Every Day Smoker Cigars Per Day: 7 Frequency of Alcohol Use: Heavy Hx Recreational Drug Use: Yes Drugs: Marijuana Hx Prescription Drug Abuse: Yes - Advance Directive Resuscitation Status: Full Code Surrogate healthcare decision maker:: Patient's brother is the surrogate decision-maker Family History Family History: Hypertension. denies: Reviewed & Not Pertinent Parental Family History Reviewed: Yes Children Family History Reviewed: Yes Sibling(s) Family History Reviewed.: Yes Medication/Allergy Home Medications: Albuterol Sulfate [Proair HFA Inhalation Aerosol 8.5 gm MDI] 2 puff IH Q6HP PRN 06/23/17 Aspirin [Aspirin EC] 81 mg PO DAILY 06/23/17 Carvedilol [Coreg 3.125 mg Tablet] 3.125 mg PO Q12 06/23/17 Digoxin [Lanoxin 0.125 mg Tablet] 0.125 mg PO DAILY 06/23/17 Furosemide [Lasix 40 mg Tablet] 40 mg PO DAILY 06/23/17 Lisinopril [Zestril] 5 mg PO DAILY 06/23/17 Potassium Chloride [Klor-Con 10 Meq Tablet.sa] 20 meq PO BID 06/23/17 Allergies/Adverse Reactions: No Known Allergies Allergy (Verified 06/06/17 11:08) Review of Systems Review of Systems: Please see history of present illness and past medical history as wall. Constitutional: No fever or chills reported. Head : No recent chronic headaches, recent head injury. Eyes: No recent eye pain, diplopia, redness, discharge, acute visual changes. Ears: No recent chronic ear pain, acute hearing loss, ear discharge. Oral cavity: No recent ulcerations, bleeding, oral cavity discomfort. Neck: No recent acute neck pain reported. Hematologic: No recent easy bruising or bleeding or hematologic malignancy reported. Lymphatic: No recent lymphatic malignancy, chronic lymphadenopathy reported yet Cardiovascular system review: See history of present illness. Patient denied any sustained palpitations, syncope, near syncope. Respiratory system review: No recent chronic cough, hemoptysis, blood clots in the lungs reported. Shortness of breath on exertion Gastrointestinal system review: Negative for any recent acute or chronic abdominal pain, hematemesis, melena, recent change in bowel habits. Genitourinary system review: No recent acute or chronic hematuria, flank pain, UTI etc. reported. Skin system review: Negative for any recent abnormal bruising, no rash, no pruritus reported. Neurologic: No prior history of strokes, mini strokes, seizure disorder. Psychologic: No history of major psychosis or major depression reported. Musculoskeletal: Minor aches and pains reported. No acute joint swelling reported. Endocrine: No recent polyuria, polydipsia, recent heat or cold intolerance. Physical Exam Vital Signs: Temp Pulse Resp BP Pulse Ox 98.0 F 95 17 106/75 96 06/25/17 16:42 06/25/17 16:42 06/25/17 16:42 06/25/17 16:42 06/25/17 16:42 Intake & Output 06/24/17 06/25/17 06/26/17 06:59 06:59 06:59 Intake Total 9100 574 3317 Output Total 1375 1220 1800 Balance -27 -650 913 Weight 56.6 kg 56.6 kg Exam: GENERAL: well-nourished and in no acute distress. Alert and oriented x3 HEAD: Atraumatic, normocephalic. EYES: Pupils equal round and reactive to light, extraocular movements intact, sclera anicteric, conjunctiva are normal. ENT: TMs normal, nares patent, oropharynx clear without exudates. Moist mucous membranes. No oral ulcerations or bleeding gums noted NECK: supple without lymphadenopathy. Trachea is central. No cervical or axillary lymphadenopathy noted. Carotids are 2+, JVD WNL LUNGS: Respiration seems nonlabored, no significant accessory muscle action noted. Breath sounds clear to auscultation bilaterally and equal noted. No wheezes rales or rhonchi noted. No significant dullness noted on percussion. CHEST: Palpation of the chest wall shows no significant chest wall tenderness. No other significant abnormalities noted. HEART: [place] [employer], No PSH, 1/6 VIMAL aortic area, 3/6 goldstein systolic murmur mitral area, no rubs, no gallops. ABDOMEN: Soft, no significant tenderness appreciated, normoactive bowel sounds. No guarding, no rebound. No rigidity noted . No masses appreciated. EXTREMITIES: Pedal pulses are 1-2+, no calf tenderness noted. No clubbing or cyanosis.trace + pedal edema noted NEUROLOGICAL: Focused neurological exam showed no significant neurologic deficit. Normal speech, no focal weakness appreciated. PSYCH: Normal mood, normal affect. Judgment and insight within normal limits. SKIN: No significant ecchymosis, rash, ulcerations or signs of pruritus noted. MUSCULOSKELETAL EXAM: No significant joint swelling noted. Results Laboratory Results: 06/25/17 04:09 06/25/17 04:09 06/25/17 06/25/17 04:09 04:09 WBC 11.4 H RBC 3.97 L Hgb 13.1 L Hct 39.4 MCV 99 H MCH 33.1 MCHC 33.3 RDW 14.2 H Plt Count 211 Seg Neutrophils % 69.2 Lymphocytes % 20.7 Monocytes % 7.4 Eosinophils % 2.4 Basophils % 0.3 Absolute Neutrophils 7.9 Absolute Lymphocytes 2.4 Absolute Monocytes 0.8 Absolute Eosinophils 0.3 Absolute Basophils 0.0 Sodium 139.1 Potassium 3.9 Chloride 96 L Carbon Dioxide 33 H Anion Gap 10 BUN 21 H Creatinine 0.91 Est GFR ( Amer) > 60 Est GFR (Non-Af Amer) > 60 Glucose 86 Calcium 8.5 Magnesium 2.2 06/23/17 06/23/17 15:20 21:35 Troponin I 0.019 0.014 EKG Comments: Sinus tachycardia, LVH Impressions: Chest X-Ray 06/25/17 00:00 IMPRESSION: Trace fluid or atelectasis in the bilateral costophrenic sulci. Stable cardiomegaly. Assessment & Plan - Diagnosis (1) Acute on chronic combined systolic and diastolic CHF (congestive heart failure) Is this a current diagnosis for this admission?: Yes (2) COPD (chronic obstructive pulmonary disease) Qualifiers: Emphysema type: unspecified Is this a current diagnosis for this admission?: Yes (3) Cardiomyopathy Qualifiers: Cardiomyopathy type: alcoholic Qualified Code(s): I42.6 - Alcoholic cardiomyopathy Is this a current diagnosis for this admission?: Yes (4) Mitral regurgitation Qualifiers: Cardiac valve disease etiology: etiology unspecified Qualified Code(s): I34.0 - Nonrheumatic mitral (valve) insufficiency Is this a current diagnosis for this admission?: Yes (5) Tobacco abuse Is this a current diagnosis for this admission?: Yes (6) Marihuana abuse Is this a current diagnosis for this admission?: Yes - Notes Notes: Patient presented with acute shortness of breath most likely related to acute on chronic CHF. Patient is noted to have severe LV systolic dysfunction in addition had severe mitral regurgitation. At this point agree with IV diuretics , optimize therapy for underlying CHF with digoxin, entresto therapy. COPD: Patient has been advised to quit smoking. Cardiomyopathy: Currently 2D echo shows severe LV EF. Will review patient's previous echocardiogram. Patient will be a candidate for defibrillator therapy. Mitral regurgitation: Patient noted to have severe mitral regurgitation on echocardiogram. Recommend vasodilator therapy. Tobacco abuse: Patient advised to quit smoking. Alcohol abuse: Patient was noted to have elevated alcohol level on presentation. Patient has been advised to quit his drinking. CODE STATUS was discussed, patient remains full code. Surrogate decision-maker unchanged. Multiple medical problems were addressed. - Time Time Spent: 50 to 70 Minutes Medications reviewed and adjusted accordingly: Yes
[2017-06-25] MEDS ORDERED: DIGOXIN 0.125 MG TABLET PO ONE (21:00)
[2017-06-25] MEDS: ATORVASTATIN CALCIUM 40 MG TABLET PO SCH (22:07)
[2017-06-26] MEDS: ACETAMINOPHEN 325 MG TABLET PO PRN ×2 (00:02→22:27)
[2017-06-26] MEDS: HEPARIN SOD (PORCINE) 5,000 UNIT/ML 1 ML SYRINGE SUBCUT SCH ×3 (06:31→22:20)
[2017-06-26] MEDS: IPRATROPIUM/ALBUTEROL 0.5-2.5 MG/3 ML AMPUL NEB SCH ×3 (08:42→19:51)
[2017-06-26] MEDS: THIAMINE HCL 100 MG TABLET PO SCH (09:22)
[2017-06-26] MEDS: ASPIRIN 81 MG TABLET, ENT COATED PO SCH (09:22)
[2017-06-26] MEDS: AZITHROMYCIN 250 MG TABLET PO SCH (09:22)
[2017-06-26] MEDS: MULTIVITAMIN TABLET PO SCH (09:23)
[2017-06-26] MEDS: DIGOXIN 0.125 MG TABLET PO SCH (09:24)
[2017-06-26] MEDS: NICOTINE 14 MG/24 HR PATCH.TD24 TD SCH (09:25)
[2017-06-26] MEDS: FUROSEMIDE INJ/PF 20 MG/2 ML SDV IV SCH ×2 (09:25→22:21)
[2017-06-26] MEDS: FLUTICASONE/SALMETEROL DISKUS 250-50 MCG/DOSE IH SCH ×2 (09:25→22:21)
[2017-06-26] MEDS: DOCUSATE SODIUM 100 MG CAPSULE PO SCH (09:32)
[2017-06-26] MEDS: SACUBITRIL/VALSARTAN 24 MG/26 MG TABLET PO SCH ×2 (13:18→22:20)
[2017-06-26] MEDS: METOPROLOL SUCCINATE 25 MG TAB.SR.24H PO SCH (13:18)
--- NOTE | 2017-06-26 17:40 | PDOC PROGRESS REPORT ---
Subjective Progress Note for:: 06/26/17 Reason For Visit: ACUTE ON CHRONIC COMBINE CONGESTIVE HEART FAILURE Physical Exam Vital Signs: Temp Pulse Resp BP Pulse Ox 98.1 F 98 17 114/68 96 06/26/17 15:41 06/26/17 15:41 06/26/17 15:41 06/26/17 15:41 06/26/17 15:41 Intake & Output 06/25/17 06/26/17 06/27/17 00:59 00:59 00:59 Intake Total 1170 3328 12 Output Total 1994 3000 Balance -825 328 12 Weight 56.6 kg 56.6 kg 56.6 kg General appearance: PRESENT: no acute distress, well-developed, well-nourished Head exam: PRESENT: atraumatic, normocephalic Eye exam: PRESENT: conjunctiva pink, EOMI, PERRLA. ABSENT: scleral icterus Respiratory exam: PRESENT: rales - rtight base. ABSENT: rhonchi, wheezes Pulses: PRESENT: normal dorsalis pedis pul GI/Abdominal exam: PRESENT: normal bowel sounds, soft. ABSENT: distended, guarding, mass, organolmegaly, rebound, tenderness Rectal exam: PRESENT: deferred Extremities exam: PRESENT: full ROM. ABSENT: calf tenderness, clubbing, pedal edema Neurological exam: PRESENT: alert, awake, oriented to person, oriented to place , oriented to time, oriented to situation, CN II-XII grossly intact. ABSENT: motor sensory deficit Results Laboratory Results: 06/25/17 04:09 06/25/17 04:09 06/23/17 06/23/17 15:20 21:35 Troponin I 0.019 0.014 Impressions: Chest X-Ray 06/25/17 00:00 IMPRESSION: Trace fluid or atelectasis in the bilateral costophrenic sulci. Stable cardiomegaly. Assessment & Plan - Time Time Spent with patient: (1) Acute on chronic combined systolic and diastolic CHF (congestive heart failure) Is this a current diagnosis for this admission?: Yes Plan: continue present management Echo : EF of 35%; global hypokinesis; moderate MR ; case was discussed with Dr. Akins Patient is a candidate for transfer to [facility] for defibrillator placement; and likely cardiac catheterization and [facility] For reevaluation of mitral regurgitation Patient did not wish to be transferred today We will arrange for transfer in a.m. (2) Acute respiratory failure with hypoxia Is this a current diagnosis for this admission?: Yes Plan: To wean off oxygen as tolerated (3) Cardiomyopathy Qualifiers: Cardiomyopathy type: alcoholic Qualified Code(s): I42.6 - Alcoholic cardiomyopathy Is this a current diagnosis for this admission?: Yes Plan: Reviewed old echocardiogram on 2015 EF 35% stress test 10/26/2015 no ischemia repeat echo (4) Alcohol abuse Is this a current diagnosis for this admission?: Yes Plan: Patient has been educated about quitting. Continue thiamine, multivitamin and Ativan IV as needed for agitation (5) Tobacco abuse Is this a current diagnosis for this admission?: Yes Plan: Patient has been educated about quitting and problems secondary to nicotine such as heart attack, stroke, emphysema, circulation problems, cancer. Continue nicotine patch (6) Hyponatremia Is this a current diagnosis for this admission?: Yes Plan: Due to fluid overload load. Resolved since admission (7) Mitral regurgitation Qualifiers: Cardiac valve disease etiology: etiology unspecified Qualified Code(s): I34.0 - Nonrheumatic mitral (valve) insufficiency Is this a current diagnosis for this admission?: Yes Plan: Echocardiogram ordered on admission to see if any progression (8) Pulmonary hypertension Is this a current diagnosis for this admission?: Yes Plan: May relate to systolic and diastolic dysfunction however I am also concerned about the possibility that may relate to valvular heart disease. Echocardiogram has been requested (9) COPD (chronic obstructive pulmonary disease) Qualifiers: Emphysema type: unspecified Is this a current diagnosis for this admission?: Yes Plan: Continue nebulizer treatments, IV steroids and zithromax. (10) Lactic acidosis Is this a current diagnosis for this admission?: Yes Plan: Improved if there are any further aggressive intervention to do with hypoperfusion in the setting of acute on chronic congestive heart failure We will continue present management Transfer to [facility] cardiac connections in a.m. Time Spent with patient: 25-34 minutes
--- NOTE | 2017-06-26 20:22 | PDOC PROGRESS REPORT ---
Subjective Progress Note for:: 06/26/17 Subjective:: Patient seems to be doing better with gradual improvement. Pt is denying any chest arm or neck discomfort. Patient denying any PND, orthopnea. Patient denied any sustained palpitations, dizziness, syncope, near syncope. Patient denying any fever chills. Patient denying any other significant discomfort. Patient is maintaining sinus rhythm. 2D echo results reviewed with the patient Review of systems: Rest review of systems negative. Medications: Medications have been reviewed. Reason For Visit: ACUTE ON CHRONIC COMBINE CONGESTIVE HEART FAILURE Physical Exam Vital Signs: Temp Pulse Resp BP Pulse Ox 98.1 F 98 17 114/68 96 06/26/17 15:41 06/26/17 15:41 06/26/17 15:41 06/26/17 15:41 06/26/17 15:41 Intake & Output 06/25/17 06/26/17 06/27/17 06:59 06:59 06:59 Intake Total 570 3340 914 Output Total 1220 3000 1275 Balance -650 340 -361 Weight 56.6 kg 56.6 kg Exam: GENERAL: well-nourished and in no acute distress. Alert and oriented x3 HEAD: Atraumatic, normocephalic. EYES: Pupils equal round and reactive to light, extraocular movements intact, sclera anicteric, conjunctiva are normal. ENT: TMs normal, nares patent, oropharynx clear without exudates. Moist mucous membranes. No oral ulcerations or bleeding gums noted NECK: supple without lymphadenopathy. Trachea is central. No cervical or axillary lymphadenopathy noted. Carotids are 2+, JVD WNL LUNGS: Respiration seems nonlabored, no significant accessory muscle action noted. Breath sounds clear to auscultation bilaterally and equal noted. No wheezes rales or rhonchi noted. No significant dullness noted on percussion. CHEST: Palpation of the chest wall shows no significant chest wall tenderness. No other significant abnormalities noted. HEART: [place] [employer] H[employer]ER, No PSH, 1/6 VIMAL aortic area, 2-3/6 goldstein systolic murmur mitral area, no rubs, no gallops. ABDOMEN: Soft, no significant tenderness appreciated, normoactive bowel sounds. No guarding, no rebound. No rigidity noted . No masses appreciated. EXTREMITIES: Pedal pulses are 1-2+, no calf tenderness noted. No clubbing or cyanosis.trace to 1+ pedal edema noted NEUROLOGICAL: Focused neurological exam showed no significant neurologic deficit. Normal speech, no focal weakness appreciated. PSYCH: Normal mood, normal affect. Judgment and insight within normal limits. SKIN: No significant ecchymosis, rash, ulcerations or signs of pruritus noted. MUSCULOSKELETAL EXAM: No significant joint swelling noted. Results Laboratory Results: 06/25/17 04:09 06/25/17 04:09 06/23/17 06/23/17 15:20 21:35 Troponin I 0.019 0.014 Impressions: Chest X-Ray 06/25/17 00:00 IMPRESSION: Trace fluid or atelectasis in the bilateral costophrenic sulci. Stable cardiomegaly. Assessment & Plan - Diagnosis (1) Acute on chronic combined systolic and diastolic CHF (congestive heart failure) Is this a current diagnosis for this admission?: Yes (2) COPD (chronic obstructive pulmonary disease) Qualifiers: Emphysema type: unspecified Is this a current diagnosis for this admission?: Yes (3) Cardiomyopathy Qualifiers: Cardiomyopathy type: alcoholic Qualified Code(s): I42.6 - Alcoholic cardiomyopathy Is this a current diagnosis for this admission?: Yes (4) Mitral regurgitation Qualifiers: Cardiac valve disease etiology: etiology unspecified Qualified Code(s): I34.0 - Nonrheumatic mitral (valve) insufficiency Is this a current diagnosis for this admission?: Yes (5) Tobacco abuse Is this a current diagnosis for this admission?: Yes - Notes Notes: Medical management discussed with the patient. Discussed increased risk of sudden cardiac because of LV systolic dysfunction. Discussed need for tertiary care referral for mitral regurgitation which is noted to be severe and also for evaluation for prophylactic defibrillator placement. Dr. Grimaldo is going to try to call [facility] to arrange for such a transfer if feasible. In the meantime I have asked social services specialist and medical planner to see patient regarding his lack of insurance and if a [employer] could be arranged. Congestive heart failure: Patient presented with acute shortness of breath most likely related to acute on chronic CHF. Patient is noted to have severe LV systolic dysfunction in addition had severe mitral regurgitation. At this point agree with IV diuretics, optimize therapy for underlying CHF with digoxin , entresto therapy. COPD: Patient has been advised to quit smoking. Cardiomyopathy: Currently 2D echo shows severe LV EF. Previous echocardiogram from 2013 shows LVEF of approximately 15%. Patient will be a candidate for defibrillator therapy. Mitral regurgitation: Patient noted to have severe mitral regurgitation on echocardiogram. Recommend vasodilator therapy. Patient started on entresto who seems to be tolerating this well. Tobacco abuse: Patient advised to quit smoking. Alcohol abuse: Patient was noted to have elevated alcohol level on presentation. Patient has been advised to quit his drinking. CODE STATUS was discussed, patient remains full code. Surrogate decision-maker unchanged. Multiple medical problems were addressed. - Time Time with patient: Greater than 35 minutes - CODE STATUS was discussed, patient remains full code. Surrogate decision-maker unchanged. Multiple medical problems were addressed. More than 50% of the time spent coordinating care, discussing management plans with involved caregivers. Management plans discussed with involved personnels. Medical decision making was of moderate to high complexity, patient's has multiple comorbidities. Medications reviewed and adjusted accordingly: Yes
[2017-06-26] MEDS: ATORVASTATIN CALCIUM 40 MG TABLET PO SCH (22:21)
[2017-06-27 05:30] LABS: ABSOLUTE EOSINOPHILS # (AUTO) 0.5 10^3/uL (0.0-0.6); ABSOLUTE LYMPHOCYTES (AUTO) 1.4 10^3/uL (0.5-4.7); ABSOLUTE MONOCYTES (AUTO) 0.6 10^3/uL (0.1-1.4); ABSOLUTE NEUT (AUTO) 3.7 10^3/uL (1.7-8.2); BASOPHILS % (AUTO) 0.8 % (0-2); EOSINOPHILS % (AUTO) 7.8 % (0-6); HEMATOCRIT 42.6 % (37.9-51.0); HEMOGLOBIN 14.4 g/dL (13.5-17.0); LYMPHOCYTES % (AUTO) 22.9 % (13-45); MEAN CORPUSCULAR HEMOGLOBIN 33.6 pg (27.0-33.4); MEAN CORPUSCULAR HGB CONC 33.7 g/dL (32.0-36.0); MEAN CORPUSCULAR VOLUME 100 fl (80-97); MONOCYTES % (AUTO) 9.2 % (3-13); PLATELET COUNT 218 10^3/uL (150-450); RED BLOOD COUNT 4.28 10^6/uL (4.35-5.55); SEGMENTED NEUTROPHILS % (AUTO) 59.3 % (42-78); TOTAL CELLS COUNTED % (AUTO) 100 %; WHITE BLOOD COUNT 6.3 10^3/uL (4.0-10.5)
[2017-06-27] MEDS: HEPARIN SOD (PORCINE) 5,000 UNIT/ML 1 ML SYRINGE SUBCUT SCH ×3 (05:40→22:08)
[2017-06-27 06:03] LABS: ANION GAP 11 (5-19); BLOOD UREA NITROGEN 23 mg/dL (7-20); CALCIUM 9.4 mg/dL (8.4-10.2); CARBON DIOXIDE 32 mmol/L (22-30); CHLORIDE 95 mmol/L (98-107); GLUCOSE 89 mg/dL (75-110); POTASSIUM 3.7 mmol/L (3.6-5.0); SODIUM 137.9 mmol/L (137-145)
[2017-06-27] MEDS: IPRATROPIUM/ALBUTEROL 0.5-2.5 MG/3 ML AMPUL NEB SCH ×3 (08:10→20:22)
[2017-06-27] MEDS: METOPROLOL SUCCINATE 25 MG TAB.SR.24H PO SCH (09:06)
[2017-06-27] MEDS: FLUTICASONE/SALMETEROL DISKUS 250-50 MCG/DOSE IH SCH ×2 (09:13→22:17)
[2017-06-27] MEDS: THIAMINE HCL 100 MG TABLET PO SCH (09:14)
[2017-06-27] MEDS: NICOTINE 14 MG/24 HR PATCH.TD24 TD SCH (09:14)
[2017-06-27] MEDS: ASPIRIN 81 MG TABLET, ENT COATED PO SCH (09:14)
[2017-06-27] MEDS: AZITHROMYCIN 250 MG TABLET PO SCH (09:14)
[2017-06-27] MEDS: MULTIVITAMIN TABLET PO SCH (09:14)
[2017-06-27] MEDS: FUROSEMIDE INJ/PF 20 MG/2 ML SDV IV SCH ×2 (09:14→22:17)
[2017-06-27] MEDS: DIGOXIN 0.125 MG TABLET PO SCH (09:15)
[2017-06-27] MEDS: DOCUSATE SODIUM 100 MG CAPSULE PO SCH (09:16)
--- NOTE | 2017-06-27 12:05 | PDOC PROGRESS REPORT ---
Subjective Progress Note for:: 06/27/17 Subjective:: Patient seems to be doing better with gradual improvement. Pt is denying any chest arm or neck discomfort. Patient denying any PND, orthopnea. Patient denied any sustained palpitations, dizziness, syncope, near syncope. Patient denying any fever chills. Patient denying any other significant discomfort. Patient is maintaining sinus rhythm. 2D echo results reviewed with the patient. Telemetry strips reviewed. Showed no significant sustained tacky or bradycardia arrhythmias. Review of systems: Rest review of systems negative. Medications: Medications have been reviewed. Reason For Visit: ACUTE ON CHRONIC COMBINE CONGESTIVE HEART FAILURE Physical Exam Vital Signs: Temp Pulse Resp BP Pulse Ox 97.5 F 82 16 102/67 100 06/27/17 08:05 06/27/17 08:10 06/27/17 08:10 06/27/17 08:05 06/27/17 08:05 Intake & Output 06/26/17 06/27/17 06/28/17 06:59 06:59 06:59 Intake Total 3340 1749 Output Total 3000 2175 Balance 340 -426 Weight 56.6 kg 59.2 kg Exam: GENERAL: well-nourished and in no acute distress. Alert and oriented x3 HEAD: Atraumatic, normocephalic. EYES: Pupils equal round and reactive to light, extraocular movements intact, sclera anicteric, conjunctiva are normal. ENT: TMs normal, nares patent, oropharynx clear without exudates. Moist mucous membranes. No oral ulcerations or bleeding gums noted NECK: supple without lymphadenopathy. Trachea is central. No cervical or axillary lymphadenopathy noted. Carotids are 2+, JVD WNL LUNGS: Respiration seems nonlabored, no significant accessory muscle action noted. Breath sounds clear to auscultation bilaterally and equal noted. No wheezes rales or rhonchi noted. No significant dullness noted on percussion. CHEST: Palpation of the chest wall shows no significant chest wall tenderness. No other significant abnormalities noted. HEART: [place] [employer], No PSH, 1/6 VIMAL aortic area, 2-3/6 goldstein systolic murmur mitral area, no rubs, no gallops. ABDOMEN: Soft, no significant tenderness appreciated, normoactive bowel sounds. No guarding, no rebound. No rigidity noted . No masses appreciated. EXTREMITIES: Pedal pulses are 1-2+, no calf tenderness noted. No clubbing or cyanosis.trace to 1+ pedal edema noted NEUROLOGICAL: Focused neurological exam showed no significant neurologic deficit. Normal speech, no focal weakness appreciated. PSYCH: Normal mood, normal affect. Judgment and insight within normal limits. SKIN: No significant ecchymosis, rash, ulcerations or signs of pruritus noted. MUSCULOSKELETAL EXAM: No significant joint swelling noted. Results Laboratory Results: 06/27/17 04:29 06/27/17 04:29 06/27/17 06/27/17 04:29 04:29 WBC 6.3 RBC 4.28 L Hgb 14.4 Hct 42.6 MCV 100 H MCH 33.6 H MCHC 33.7 RDW 14.0 Plt Count 218 Seg Neutrophils % 59.3 Lymphocytes % 22.9 Monocytes % 9.2 Eosinophils % 7.8 H Basophils % 0.8 Absolute Neutrophils 3.7 Absolute Lymphocytes 1.4 Absolute Monocytes 0.6 Absolute Eosinophils 0.5 Absolute Basophils 0.0 Sodium 137.9 Potassium 3.7 Chloride 95 L Carbon Dioxide 32 H Anion Gap 11 BUN 23 H Creatinine 0.86 Est GFR ( Amer) > 60 Est GFR (Non-Af Amer) > 60 Glucose 89 Calcium 9.4 Magnesium 2.0 06/23/17 06/23/17 15:20 21:35 Troponin I 0.019 0.014 EKG Comments: Telemetry strip shows sinus rhythm without any sustained tacky or bradycardia arrhythmias. Impressions: Chest X-Ray 06/25/17 00:00 IMPRESSION: Trace fluid or atelectasis in the bilateral costophrenic sulci. Stable cardiomegaly. Assessment & Plan - Diagnosis (1) Acute on chronic combined systolic and diastolic CHF (congestive heart failure) Is this a current diagnosis for this admission?: Yes (2) COPD (chronic obstructive pulmonary disease) Qualifiers: Emphysema type: unspecified Is this a current diagnosis for this admission?: Yes (3) Cardiomyopathy Qualifiers: Cardiomyopathy type: alcoholic Qualified Code(s): I42.6 - Alcoholic cardiomyopathy Is this a current diagnosis for this admission?: Yes (4) Mitral regurgitation Qualifiers: Cardiac valve disease etiology: etiology unspecified Qualified Code(s): I34.0 - Nonrheumatic mitral (valve) insufficiency Is this a current diagnosis for this admission?: Yes (5) Tobacco abuse Is this a current diagnosis for this admission?: Yes - Notes Notes: Medical management discussed with the patient. Discussed increased risk of sudden cardiac because of LV systolic dysfunction. Discussed need for tertiary care referral for mitral regurgitation which is noted to be severe and also for evaluation for prophylactic defibrillator placement. Dr. Grimaldo is going to try to call [facility] to arrange for such a transfer if feasible. In the meantime I have asked geriatric social work professor and material planner to see patient regarding his lack of insurance and if a LifeVest could be arranged. Patient was also scheduled outpatient appointment with EP clinic at [facility]. They reported to the medical secretary that patient has been noncompliant had missed prior appointments. Congestive heart failure: Patient presented with acute shortness of breath most likely related to acute on chronic CHF. Patient is noted to have severe LV systolic dysfunction in addition had severe mitral regurgitation. At this point agree with IV diuretics, optimize therapy for underlying CHF with digoxin , entresto therapy. Patient seems to be tolerating this current therapy. COPD: Patient has been advised to quit smoking. Cardiomyopathy: Currently 2D echo shows severe LV EF. Previous echocardiogram from 2013 shows LVEF of approximately 15%. Patient will be a candidate for defibrillator therapy. Mitral regurgitation: Patient noted to have severe mitral regurgitation on echocardiogram. Recommend vasodilator therapy. Patient started on entresto who seems to be tolerating this well. Tobacco abuse: Patient advised to quit smoking. Alcohol abuse: Patient was noted to have elevated alcohol level on presentation. Patient has been advised to quit his drinking. CODE STATUS was discussed, patient remains full code. Surrogate decision-maker unchanged. Multiple medical problems were addressed. - Time Time with patient: Greater than 35 minutes - CODE STATUS was discussed, patient remains full code. Surrogate decision-maker unchanged. Multiple medical problems were addressed. More than 50% of the time spent coordinating care, discussing management plans with involved caregivers. Management plans discussed with involved personnels. Medical decision making was of moderate to high complexity, patient's has multiple comorbidities. Medications reviewed and adjusted accordingly: Yes
[2017-06-27] MEDS: SACUBITRIL/VALSARTAN 24 MG/26 MG TABLET PO SCH ×2 (13:53→22:17)
--- NOTE | 2017-06-27 14:19 | PDOC TRANSFER SUMMARY ---
General Admission Date/PCP: 06/23/17 08:41 Admission Date: 06/23/17 Transfer Date: 06/27/17 Accepting Facility: [facility] Resuscitation Status: Full Code - Transfer Diagnosis (1) Acute on chronic combined systolic and diastolic CHF (congestive heart failure) Is this a current diagnosis for this admission?: Yes (2) Cardiomyopathy Is this a current diagnosis for this admission?: Yes (3) Mitral regurgitation Is this a current diagnosis for this admission?: Yes (4) Acute respiratory failure with hypoxia Is this a current diagnosis for this admission?: Yes (5) Alcohol abuse Is this a current diagnosis for this admission?: Yes (6) COPD (chronic obstructive pulmonary disease) Is this a current diagnosis for this admission?: Yes (7) Tobacco abuse Is this a current diagnosis for this admission?: Yes - Transfer Medications Home Medications: Albuterol Sulfate [Proair HFA Inhalation Aerosol 8.5 gm MDI] 2 puff IH Q6HP PRN 06/23/17 Aspirin [Aspirin EC] 81 mg PO DAILY 06/23/17 Carvedilol [Coreg 3.125 mg Tablet] 3.125 mg PO Q12 06/23/17 Digoxin [Lanoxin 0.125 mg Tablet] 0.125 mg PO DAILY 06/23/17 Furosemide [Lasix 40 mg Tablet] 40 mg PO DAILY 06/23/17 Lisinopril [Zestril] 5 mg PO DAILY 06/23/17 Potassium Chloride [Klor-Con 10 Meq Tablet.sa] 20 meq PO BID 06/23/17 Transfer Medications: Current Medications Acetaminophen (Tylenol 325 Mg Tablet) 325 mg PO Q4HP PRN PRN Reason: MILD PAIN OR TEMP > 101 Stop: 07/23/17 08:32 Last Admin: 06/26/17 22:27 Dose: 325 mg Albuterol (Ventolin 0.083% Neb 2.5 Mg/3 Ml Ampul) 2.5 mg NEB RTQ2HP PRN PRN Reason: SHORTNESS OF BREATH Stop: 07/23/17 08:32 Albuterol/Ipratropium (Duoneb 3 Ml Ampul) 3 ml NEB [id number] [facility] Stop: 07/23/17 13:59 Last Admin: 06/27/17 14:16 Dose: 3 ml Aspirin (Ecotrin 81 Mg Ec Tablet) 81 mg PO DAILY [facility] Stop: 07/23/17 09:59 Last Admin: 06/27/17 09:14 Dose: 81 mg Atorvastatin Calcium (Lipitor 40 Mg Tablet) 40 mg PO QHS [facility] Stop: 07/23/17 21:59 Last Admin: 06/26/17 22:21 Dose: 40 mg Azithromycin (Zithromax 250 Mg Tablet) 500 mg PO DAILY [facility] ARMAND[facility] Stop: 06/30/17 09:59 Last Admin: 06/27/17 09:14 Dose: 500 mg Digoxin (Lanoxin 0.125 Mg Tablet) 0.125 mg PO DAILY LU[facility] ARMANDO Stop: 07/26/17 09:59 Last Admin: 06/27/17 09:15 Dose: 0.125 mg Docusate Sodium (Colace 100 Mg Capsule) 100 mg PO DAILY LU[facility] ARMANDO Stop: 07/23/17 09:59 Last Admin: 06/27/17 09:16 Dose: Not Given Furosemide (Lasix Inj/Pf 20 Mg/2 Ml Sdv) 20 mg IV Q12 [facility] ARMAND[facility] Stop: 07/24/17 09:59 Last Admin: 06/27/17 09:14 Dose: 20 mg Heparin Sodium (Porcine) (Heparin Inj 5,000 Units/Ml 1 Ml Syringe) 5,000 unit SUBCUT Q8 [facility] ARM[facility] Stop: 07/23/17 13:59 Last Admin: 06/27/17 13:53 Dose: Not Given Lorazepam (Ativan Inj 2 Mg/1 Ml Vial) 1 mg IV Q4HP PRN PRN Reason: ANXIETY/AGITATION Stop: 06/30/17 08:42 Metoprolol Succinate (Toprol Xl 25 Mg Tab.Sr) 25 mg PO DAILY LU[facility] ARMANDO Stop: 07/23/17 09:59 Last Admin: 06/27/17 09:06 Dose: Not Given Multivitamins (Tab-A-Angy (Multiple Vitamin) Tablet) 1 tab PO DAILY [facility] ARM[facility] Stop: 07/23/17 09:59 Last Admin: 06/27/17 09:14 Dose: 1 tab Nicotine (Nicoderm 14 Mg/24 Hr Transdermal Patch) 1 each TD DAILY [facility] ARMANDO Stop: 07/24/17 09:59 Last Admin: 06/27/17 09:14 Dose: 1 each Ondansetron HCl (Zofran Inj/Pf 4 Mg/2 Ml Sdv) 4 mg IV Q6HP PRN PRN Reason: FOR NAUSEA/VOMITING Stop: 07/23/17 08:32 Oxycodone/Acetaminophen (Percocet 5-325 Mg Tablet) 1 tab PO Q6HP PRN PRN Reason: PAIN SCALE 3-5 Stop: 06/30/17 08:32 Sacubitril/Valsartan (Entresto 24 Mg/26 Mg Tablet) 1 tab PO Q12 LUIS ARMANDO Stop: 07/26/17 09:59 Last Admin: 06/27/17 13:53 Dose: Not Given Fluticasone/Salmeterol (Advair 250-50 Diskus 14 Dose/Diskus) 1 inh IH Q12 [facility] ARMAND[facility] Stop: 07/24/17 09:59 Last Admin: 06/27/17 09:13 Dose: 1 inh Thiamine HCl (Thiamine 100 Mg Tablet) 100 mg PO DAILY [facility] ARMANDO Stop: 07/23/17 09:59 Last Admin: 06/27/17 09:14 Dose: 100 mg Zolpidem Tartrate (Ambien 5 Mg Tablet) 5 mg PO HSP PRN PRN Reason: SLEEP OR INSOMNIA Stop: 06/30/17 08:32 - Allergies Allergies/Adverse Reactions: No Known Allergies Allergy (Verified 06/06/17 11:08) - Diet/Activity Discharge Diet: Cardiac Hospital Course Hospital Course: (1) Acute on chronic combined systolic and diastolic CHF (congestive heart failure) Severe mitral regurgitation continue present management Echo : EF of 35%; global hypokinesis; moderate MR ; case was discussed with Dr. Akins Patient is a candidate for transfer to [facility] for defibrillator placement; and likely cardiac catheterization and [facility] For reevaluation of mitral regurgitation Patient currently on digoxin , entresto, Lasix, metoprolol, Ecotrin and Lipitor He has clinically improved and has diuresed Troponins remained in intermediate range (2) Acute respiratory failure with hypoxia To wean off oxygen as tolerated (3) Cardiomyopathy Recent echocardiogram shows an EF of 35% (4) Alcohol abuse Patient has been educated about quitting. Continue thiamine, multivitamin and Ativan IV as needed for agitation (5) Tobacco abuse Patient has been educated about quitting and problems secondary to nicotine such as heart attack, stroke, emphysema, circulation problems, cancer. Continue nicotine patch (6) COPD (chronic obstructive pulmonary disease) Patient treated with nebulizer treatments, IV steroids and zithromax. Respiratory status has improved Physical Exam Vital Signs: Temp Pulse Resp BP Pulse Ox 98.1 F 91 18 98/67 L 98 06/27/17 13:00 06/27/17 13:00 06/27/17 13:00 06/27/17 13:00 06/27/17 13:00 Intake & Output 06/26/17 06/27/17 06/28/17 00:59 00:59 00:59 Intake Total 3328 1512 249 Output Total 3000 1900 275 Balance 328 -388 -26 Weight 56.6 kg 56.6 kg 59.2 kg eneral appearance: PRESENT: no acute distress, well-developed, well-nourished Head exam: PRESENT: atraumatic, normocephalic Eye exam: PRESENT: conjunctiva pink, EOMI, PERRLA. ABSENT: scleral icterus Respiratory exam: PRESENT: rales - rtight base. ABSENT: rhonchi, wheezes Pulses: PRESENT: normal dorsalis pedis pul GI/Abdominal exam: PRESENT: normal bowel sounds, soft. ABSENT: distended, guarding, mass, organolmegaly, rebound, tenderness Rectal exam: PRESENT: deferred Extremities exam: PRESENT: full ROM. ABSENT: calf tenderness, clubbing, pedal edema Neurological exam: PRESENT: alert, awake, oriented to person, oriented to place , oriented to time, oriented to situation, CN II-XII grossly intact. ABSENT: motor sensory deficit Results Laboratory Results: 06/27/17 04:29 06/27/17 04:29 06/27/17 06/27/17 04:29 04:29 WBC 6.3 RBC 4.28 L Hgb 14.4 Hct 42.6 MCV 100 H MCH 33.6 H MCHC 33.7 RDW 14.0 Plt Count 218 Seg Neutrophils % 59.3 Lymphocytes % 22.9 Monocytes % 9.2 Eosinophils % 7.8 H Basophils % 0.8 Absolute Neutrophils 3.7 Absolute Lymphocytes 1.4 Absolute Monocytes 0.6 Absolute Eosinophils 0.5 Absolute Basophils 0.0 Sodium 137.9 Potassium 3.7 Chloride 95 L Carbon Dioxide 32 H Anion Gap 11 BUN 23 H Creatinine 0.86 Est GFR ( Amer) > 60 Est GFR (Non-Af Amer) > 60 Glucose 89 Calcium 9.4 Magnesium 2.0 06/23/17 06/23/17 15:20 21:35 Troponin I 0.019 0.014 Impressions: Chest X-Ray 06/25/17 00:00 IMPRESSION: Trace fluid or atelectasis in the bilateral costophrenic sulci. Stable cardiomegaly. Plan Discharge Plan: Transfer to [facility]iology for further evaluation Time Spent: Greater than 30 Minutes
--- NOTE | 2017-06-27 15:19 | Progress Note ---
Provider Note Provider Note: spoke with transfer center ; patient had been seen at the cardiology clinic in the past they do not feel that the patient needs To be transferred emergently The patient has an appointment with cardiology clinic [facility] cardiology was Dr. Hoffmann on July 17 at 2 PM They do suggest that the patient be discharged with a life vest in the meantime
[2017-06-27] MEDS: ATORVASTATIN CALCIUM 40 MG TABLET PO SCH (22:17)
[2017-06-28] MEDS: HEPARIN SOD (PORCINE) 5,000 UNIT/ML 1 ML SYRINGE SUBCUT SCH ×3 (05:58→21:50)
[2017-06-28] MEDS: ACETAMINOPHEN 325 MG TABLET PO PRN (07:00)
[2017-06-28] MEDS: IPRATROPIUM/ALBUTEROL 0.5-2.5 MG/3 ML AMPUL NEB SCH ×3 (08:27→19:27)
[2017-06-28] MEDS: METOPROLOL SUCCINATE 25 MG TAB.SR.24H PO SCH (11:30)
[2017-06-28] MEDS: FUROSEMIDE INJ/PF 20 MG/2 ML SDV IV SCH ×2 (11:30→21:50)
[2017-06-28] MEDS: NICOTINE 14 MG/24 HR PATCH.TD24 TD SCH (11:30)
[2017-06-28] MEDS: MULTIVITAMIN TABLET PO SCH (11:30)
[2017-06-28] MEDS: DIGOXIN 0.125 MG TABLET PO SCH (11:30)
[2017-06-28] MEDS: AZITHROMYCIN 250 MG TABLET PO SCH (11:30)
[2017-06-28] MEDS: SACUBITRIL/VALSARTAN 24 MG/26 MG TABLET PO SCH ×2 (11:30→21:50)
[2017-06-28] MEDS: DOCUSATE SODIUM 100 MG CAPSULE PO SCH (11:30)
[2017-06-28] MEDS: THIAMINE HCL 100 MG TABLET PO SCH (11:30)
[2017-06-28] MEDS: ASPIRIN 81 MG TABLET, ENT COATED PO SCH (11:30)
[2017-06-28] MEDS: FLUTICASONE/SALMETEROL DISKUS 250-50 MCG/DOSE IH SCH ×2 (11:30→21:49)
--- NOTE | 2017-06-28 17:33 | PDOC PROGRESS REPORT ---
Subjective Progress Note for:: 06/28/17 Subjective:: Doing better, denies chest pain, no significant shortness of breath. Denies palpitations, no fever or chills. Reason For Visit: ACUTE ON CHRONIC COMBINE CONGESTIVE HEART FAILURE Physical Exam Vital Signs: Temp Pulse Resp BP Pulse Ox 97.9 F 94 16 97/61 L 96 06/28/17 11:13 06/28/17 13:54 06/28/17 13:54 06/28/17 11:13 06/28/17 13:54 Intake & Output 06/27/17 06/28/17 06/29/17 06:59 06:59 06:59 Intake Total 1749 1455 975 Output Total 2175 1300 300 Balance -426 155 675 Weight 59.2 kg 59.2 kg GEN: NAD, well-developed, well-nourished CV: RRR, NL S1S2 LUNGS: CTA bilaterally ABDOMEN Soft, NT, +BS EXTERMITIES: 1+ pedal edema NEURO: Alert, oriented Results Laboratory Results: 06/27/17 04:29 06/27/17 04:29 06/23/17 11:06 Blood Blood Culture - Final NO GROWTH IN 5 DAYS 06/23/17 11:15 Blood Blood Culture - Final NO GROWTH IN 5 DAYS 06/23/17 06/23/17 15:20 21:35 Troponin I 0.019 0.014 Impressions: Chest X-Ray 06/25/17 00:00 IMPRESSION: Trace fluid or atelectasis in the bilateral costophrenic sulci. Stable cardiomegaly. Assessment & Plan - Diagnosis (1) Acute on chronic combined systolic and diastolic CHF (congestive heart failure) Is this a current diagnosis for this admission?: Yes Plan: Echo : EF of 35%; global hypokinesis; moderate MR ; continue Lasix IV 20 mg every 12 for now. (2) Cardiomyopathy Qualifiers: Cardiomyopathy type: alcoholic Qualified Code(s): I42.6 - Alcoholic cardiomyopathy Is this a current diagnosis for this admission?: Yes (3) Mitral regurgitation Qualifiers: Cardiac valve disease etiology: etiology unspecified Qualified Code(s): I34.0 - Nonrheumatic mitral (valve) insufficiency Is this a current diagnosis for this admission?: Yes (4) Alcohol abuse Is this a current diagnosis for this admission?: Yes (5) COPD (chronic obstructive pulmonary disease) Qualifiers: Emphysema type: unspecified Is this a current diagnosis for this admission?: Yes (6) Tobacco abuse Is this a current diagnosis for this admission?: Yes - Plan Summary Plan Summary: Patient has no need for transfer to [facility] at this time per their recommendation. Will be reported having seen him in the cardiology clinic in the past and that he should follow-up with them as outpatient. Will continue medical management for now. Plan is to discharge home with LifeVest when able to arrange one. Cardiology and case management trying to work on this, as patient has no payer source.
--- NOTE | 2017-06-28 19:25 | PDOC PROGRESS REPORT ---
Subjective Progress Note for:: 06/28/17 Subjective:: No significant change in patient's condition. Patient has diminished insight into his medical issues. Patient seems to be doing better with gradual improvement. Pt is denying any chest arm or neck discomfort. Patient denying any PND, orthopnea. Patient denied any sustained palpitations, dizziness, syncope, near syncope. Patient denying any fever chills. Patient denying any other significant discomfort. Patient is maintaining sinus rhythm. 2D echo results reviewed with the patient. Telemetry strips reviewed. Showed no significant sustained tacky or bradycardia arrhythmias. Review of systems: Rest review of systems negative. Medications: Medications have been reviewed. Reason For Visit: ACUTE ON CHRONIC COMBINE CONGESTIVE HEART FAILURE Physical Exam Vital Signs: Temp Pulse Resp BP Pulse Ox 98.8 F 93 17 86/59 L 95 06/28/17 15:41 06/28/17 15:41 06/28/17 15:41 06/28/17 15:41 06/28/17 15:41 Intake & Output 06/27/17 06/28/17 06/29/17 06:59 06:59 06:59 Intake Total 1749 1455 978 Output Total 2175 1300 300 Balance -426 155 678 Weight 59.2 kg 59.2 kg Exam: GENERAL: well-nourished and in no acute distress. Alert and oriented x3 HEAD: Atraumatic, normocephalic. EYES: Pupils equal round and reactive to light, extraocular movements intact, sclera anicteric, conjunctiva are normal. ENT: TMs normal, nares patent, oropharynx clear without exudates. Moist mucous membranes. No oral ulcerations or bleeding gums noted NECK: supple without lymphadenopathy. Trachea is central. No cervical or axillary lymphadenopathy noted. Carotids are 2+, JVD WNL LUNGS: Respiration seems nonlabored, no significant accessory muscle action noted. Breath sounds clear to auscultation bilaterally and equal noted. No wheezes rales or rhonchi noted. No significant dullness noted on percussion. CHEST: Palpation of the chest wall shows no significant chest wall tenderness. No other significant abnormalities noted. HEART: [place] [employer], No PSH, 1/6 VIMAL aortic area, 3/6 goldstein systolic murmur mitral area, no rubs, no gallops. ABDOMEN: Soft, no significant tenderness appreciated, normoactive bowel sounds. No guarding, no rebound. No rigidity noted . No masses appreciated. EXTREMITIES: Pedal pulses are 1-2+, no calf tenderness noted. No clubbing or cyanosis. Negative + pedal edema noted NEUROLOGICAL: Focused neurological exam showed no significant neurologic deficit. Normal speech, no focal weakness appreciated. PSYCH: Normal mood, normal affect. Judgment and insight within normal limits. SKIN: No significant ecchymosis, rash, ulcerations or signs of pruritus noted. MUSCULOSKELETAL EXAM: No significant joint swelling noted. Results Laboratory Results: 06/27/17 04:29 06/27/17 04:29 06/23/17 11:06 Blood Blood Culture - Final NO GROWTH IN 5 DAYS 06/23/17 11:15 Blood Blood Culture - Final NO GROWTH IN 5 DAYS 06/23/17 06/23/17 15:20 21:35 Troponin I 0.019 0.014 Impressions: Chest X-Ray 06/25/17 00:00 IMPRESSION: Trace fluid or atelectasis in the bilateral costophrenic sulci. Stable cardiomegaly. Assessment & Plan - Diagnosis (1) Acute on chronic combined systolic and diastolic CHF (congestive heart failure) Is this a current diagnosis for this admission?: Yes (2) COPD (chronic obstructive pulmonary disease) Qualifiers: Emphysema type: unspecified Is this a current diagnosis for this admission?: Yes (3) Cardiomyopathy Qualifiers: Cardiomyopathy type: alcoholic Qualified Code(s): I42.6 - Alcoholic cardiomyopathy Is this a current diagnosis for this admission?: Yes (4) Mitral regurgitation Qualifiers: Cardiac valve disease etiology: etiology unspecified Qualified Code(s): I34.0 - Nonrheumatic mitral (valve) insufficiency Is this a current diagnosis for this admission?: Yes (5) Tobacco abuse Is this a current diagnosis for this admission?: Yes (6) [place] abuse Is this a current diagnosis for this admission?: Yes - Notes Notes: Congestive heart failure: Patient presented with acute shortness of breath most likely related to acute on chronic CHF. Patient is noted to have severe LV systolic dysfunction in addition had severe mitral regurgitation. At this point agree with IV diuretics, optimize therapy for underlying CHF with digoxin , entresto therapy. Patient seems to be tolerating this current therapy. COPD: Patient has been advised to quit smoking. Cardiomyopathy: Currently 2D echo shows severe LV EF. Previous echocardiogram from 2013 shows LVEF of approximately 15%. Patient will be a candidate for defibrillator therapy. However patient has been noted to be noncompliant with follow-up. [facility] has refused to accept him but he does have a follow-up appointment with inspector material disposition. Mitral regurgitation: Patient noted to have severe mitral regurgitation on echocardiogram. Recommend vasodilator therapy. Patient started on entresto who seems to be tolerating this well. Tobacco abuse: Patient advised to quit smoking. Alcohol abuse: Patient was noted to have elevated alcohol level on presentation. Patient has been advised to quit his drinking. CODE STATUS was discussed, patient remains full code. Surrogate decision-maker unchanged. Multiple medical problems were addressed. - Time Time with patient: Greater than 35 minutes - Completed LifeVest application. Discussed the need for LifeVest especially in preventing sudden cardiac . Patient informed that he is at increased risk for it. Medications reviewed and adjusted accordingly: Yes
[2017-06-28] MEDS: ATORVASTATIN CALCIUM 40 MG TABLET PO SCH (21:49)
[2017-06-29] MEDS: HEPARIN SOD (PORCINE) 5,000 UNIT/ML 1 ML SYRINGE SUBCUT SCH ×3 (05:11→22:58)
[2017-06-29 06:19] LABS: ABSOLUTE EOSINOPHILS # (AUTO) 0.5 10^3/uL (0.0-0.6); ABSOLUTE LYMPHOCYTES (AUTO) 1.4 10^3/uL (0.5-4.7); ABSOLUTE MONOCYTES (AUTO) 0.9 10^3/uL (0.1-1.4); ABSOLUTE NEUT (AUTO) 2.5 10^3/uL (1.7-8.2); BASOPHILS % (AUTO) 0.8 % (0-2); EOSINOPHILS % (AUTO) 9.8 % (0-6); HEMATOCRIT 43.5 % (37.9-51.0); HEMOGLOBIN 14.7 g/dL (13.5-17.0); LYMPHOCYTES % (AUTO) 25.6 % (13-45); MEAN CORPUSCULAR HEMOGLOBIN 33.5 pg (27.0-33.4); MEAN CORPUSCULAR HGB CONC 33.8 g/dL (32.0-36.0); MEAN CORPUSCULAR VOLUME 99 fl (80-97); MONOCYTES % (AUTO) 16.8 % (3-13); PLATELET COUNT 237 10^3/uL (150-450); RED BLOOD COUNT 4.39 10^6/uL (4.35-5.55); RED CELL DISTRIBUTION WIDTH 13.7 % (11.5-14.0); TOTAL CELLS COUNTED % (AUTO) 100 %; WHITE BLOOD COUNT 5.4 10^3/uL (4.0-10.5)
[2017-06-29 06:37] LABS: ANION GAP 9 (5-19); BLOOD UREA NITROGEN 24 mg/dL (7-20); CALCIUM 9.2 mg/dL (8.4-10.2); CARBON DIOXIDE 30 mmol/L (22-30); CHLORIDE 97 mmol/L (98-107); GLUCOSE 90 mg/dL (75-110); POTASSIUM 3.8 mmol/L (3.6-5.0); SODIUM 136.2 mmol/L (137-145)
[2017-06-29] MEDS: IPRATROPIUM/ALBUTEROL 0.5-2.5 MG/3 ML AMPUL NEB SCH ×3 (08:00→19:38)
[2017-06-29] MEDS: NICOTINE 14 MG/24 HR PATCH.TD24 TD SCH (09:42)
[2017-06-29] MEDS: MULTIVITAMIN TABLET PO SCH (09:42)
[2017-06-29] MEDS: SACUBITRIL/VALSARTAN 24 MG/26 MG TABLET PO SCH ×2 (09:43→22:59)
[2017-06-29] MEDS: THIAMINE HCL 100 MG TABLET PO SCH (09:43)
[2017-06-29] MEDS: AZITHROMYCIN 250 MG TABLET PO SCH (09:43)
[2017-06-29] MEDS: DIGOXIN 0.125 MG TABLET PO SCH (09:44)
[2017-06-29] MEDS: FUROSEMIDE INJ/PF 20 MG/2 ML SDV IV SCH ×2 (09:44→22:59)
[2017-06-29] MEDS: ASPIRIN 81 MG TABLET, ENT COATED PO SCH (09:44)
[2017-06-29] MEDS: FLUTICASONE/SALMETEROL DISKUS 250-50 MCG/DOSE IH SCH ×2 (09:45→22:59)
[2017-06-29] MEDS: DOCUSATE SODIUM 100 MG CAPSULE PO SCH (09:46)
--- NOTE | 2017-06-29 11:27 | PDOC PROGRESS REPORT ---
Subjective Progress Note for:: 06/29/17 Subjective:: Patient seems to be doing better with gradual improvement. Pt is denying any chest arm or neck discomfort. Patient denying any PND, orthopnea. Patient denied any sustained palpitations, dizziness, syncope, near syncope. Patient denying any fever chills. Patient denying any other significant discomfort. Patient has been encouraged to ambulate in the hallway. Patient is maintaining sinus rhythm. Telemetry strips reviewed. Showed no significant sustained tachycardia or bradycardia arrhythmias. Review of systems: Rest review of systems negative. Medications: Medications have been reviewed. Reason For Visit: ACUTE ON CHRONIC COMBINE CONGESTIVE HEART FAILURE Physical Exam Vital Signs: Temp Pulse Resp BP Pulse Ox 97.5 F 77 16 97/68 L 97 06/29/17 08:00 06/29/17 08:00 06/29/17 08:00 06/29/17 08:00 06/29/17 08:00 Intake & Output 06/28/17 06/29/17 06/30/17 06:59 06:59 06:59 Intake Total 1455 1896 Output Total 1300 1325 Balance 155 571 Weight 59.2 kg 58.1 kg 58.1 kg Exam: GENERAL: well-nourished and in no acute distress. Alert and oriented x3 HEAD: Atraumatic, normocephalic. EYES: Pupils equal round and reactive to light, extraocular movements intact, sclera anicteric, conjunctiva are normal. ENT: TMs normal, nares patent, oropharynx clear without exudates. Moist mucous membranes. No oral ulcerations or bleeding gums noted NECK: supple without lymphadenopathy. Trachea is central. No cervical or axillary lymphadenopathy noted. Carotids are 2+, JVD WNL LUNGS: Respiration seems nonlabored, no significant accessory muscle action noted. Breath sounds clear to auscultation bilaterally and equal noted. No wheezes rales or rhonchi noted. No significant dullness noted on percussion. CHEST: Palpation of the chest wall shows no significant chest wall tenderness. No other significant abnormalities noted. 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 ABDOMEN: Soft, no significant tenderness appreciated, normoactive bowel sounds. No guarding, no rebound. No rigidity noted . No masses appreciated. EXTREMITIES: Pedal pulses are 1-2+, no calf tenderness noted. No clubbing or cyanosis.trace pedal edema noted NEUROLOGICAL: Focused neurological exam showed no significant neurologic deficit. Normal speech, no focal weakness appreciated. PSYCH: Normal mood, normal affect. Judgment and insight within normal limits. SKIN: No significant ecchymosis, rash, ulcerations or signs of pruritus noted. MUSCULOSKELETAL EXAM: No significant joint swelling noted. Results Laboratory Results: 06/29/17 05:48 06/29/17 05:48 06/29/17 06/29/17 05:48 05:48 WBC 5.4 RBC 4.39 Hgb 14.7 Hct 43.5 MCV 99 H MCH 33.5 H MCHC 33.8 RDW 13.7 Plt Count 237 Seg Neutrophils % 47.0 Lymphocytes % 25.6 Monocytes % 16.8 H Eosinophils % 9.8 H Basophils % 0.8 Absolute Neutrophils 2.5 Absolute Lymphocytes 1.4 Absolute Monocytes 0.9 Absolute Eosinophils 0.5 Absolute Basophils 0.0 Sodium 136.2 L Potassium 3.8 Chloride 97 L Carbon Dioxide 30 Anion Gap 9 BUN 24 H Creatinine 0.86 Est GFR ( Amer) > 60 Est GFR (Non-Af Amer) > 60 Glucose 90 Calcium 9.2 Magnesium 2.1 06/23/17 11:06 Blood Blood Culture - Final NO GROWTH IN 5 DAYS 06/23/17 11:15 Blood Blood Culture - Final NO GROWTH IN 5 DAYS 06/23/17 06/23/17 15:20 21:35 Troponin I 0.019 0.014 Impressions: Chest X-Ray 06/25/17 00:00 IMPRESSION: Trace fluid or atelectasis in the bilateral costophrenic sulci. Stable cardiomegaly. Assessment & Plan - Diagnosis (1) Acute on chronic combined systolic and diastolic CHF (congestive heart failure) Is this a current diagnosis for this admission?: Yes (2) COPD (chronic obstructive pulmonary disease) Qualifiers: Emphysema type: unspecified Is this a current diagnosis for this admission?: Yes (3) Cardiomyopathy Qualifiers: Cardiomyopathy type: alcoholic Qualified Code(s): I42.6 - Alcoholic cardiomyopathy Is this a current diagnosis for this admission?: Yes (4) Mitral regurgitation Qualifiers: Cardiac valve disease etiology: etiology unspecified Qualified Code(s): I34.0 - Nonrheumatic mitral (valve) insufficiency Is this a current diagnosis for this admission?: Yes (5) Tobacco abuse Is this a current diagnosis for this admission?: Yes (6) Marihuana abuse Is this a current diagnosis for this admission?: Yes - Notes Notes: Congestive heart failure: This is much improved and clinically compensated. BNP level was normal. COPD: Patient has been advised to quit smoking. Cardiomyopathy: Currently on good medical regimen. Could switch patient to carvedilol at 6.25 mg p.o. twice daily. However since patient has COPD, significant will leave patient on metoprolol succinate and gradually increase dose as tolerated. This can be done as an outpatient. [facility] has refused to accept him but he does have a follow-up appointment with retail project merchandiser. It seems patient will have difficulty in securing a lifrvest due to his lack of insurance. LifeVest application forms were faxed to [employer] and service planner to see the patient in this regard. Orders were entered in the chart. Mitral regurgitation: Patient noted to have severe mitral regurgitation on echocardiogram. Recommend vasodilator therapy. Patient started on entresto who seems to be tolerating this well. Will request for follow-up appointment with [facility] thoracic surgery regarding definitive treatment for mitral regurgitation. Entered ordered in the chart for the press secretary to get him an appointment. Tobacco abuse: Patient advised to quit smoking. Alcohol abuse: Patient was noted to have elevated alcohol level on presentation. Patient has been advised to quit his drinking. CODE STATUS was discussed, patient remains full code. Surrogate decision-maker unchanged. Multiple medical problems were addressed. - Time Time with patient: Greater than 35 minutes - CODE STATUS was discussed, patient remains full code. Surrogate decision-maker patient's brother. Multiple medical problems were addressed. More than 50% of the time spent coordinating care, discussing management plans with involved caregivers. Management plans discussed with involved personnels. Medical decision making was of moderate to high complexity, patient's has multiple comorbidities. Medications reviewed and adjusted accordingly: Yes
[2017-06-29] MEDS: METOPROLOL SUCCINATE 25 MG TAB.SR.24H PO SCH (12:14)
--- NOTE | 2017-06-29 17:43 | PDOC PROGRESS REPORT ---
Subjective Progress Note for:: 06/29/17 Subjective:: Doing ok, denies chest pain, no significant shortness of breath. Denies palpitations, no fever or chills. Reason For Visit: ACUTE ON CHRONIC COMBINE CONGESTIVE HEART FAILURE Physical Exam Vital Signs: Temp Pulse Resp BP Pulse Ox 98.5 F 95 18 107/68 96 06/29/17 15:14 06/29/17 15:14 06/29/17 15:14 06/29/17 15:14 06/29/17 15:14 Intake & Output 06/28/17 06/29/17 06/30/17 06:59 06:59 06:59 Intake Total 1455 1896 Output Total 1300 1325 Balance 155 571 Weight 59.2 kg 58.1 kg 58.1 kg GEN: NAD, well-developed, well-nourished CV: RRR, NL S1S2 LUNGS: CTA bilaterally ABDOMEN Soft, NT, +BS EXTERMITIES: 1+ pedal edema NEURO: Alert, oriented Results Laboratory Results: 06/29/17 05:48 06/29/17 05:48 06/29/17 06/29/17 05:48 05:48 WBC 5.4 RBC 4.39 Hgb 14.7 Hct 43.5 MCV 99 H MCH 33.5 H MCHC 33.8 RDW 13.7 Plt Count 237 Seg Neutrophils % 47.0 Lymphocytes % 25.6 Monocytes % 16.8 H Eosinophils % 9.8 H Basophils % 0.8 Absolute Neutrophils 2.5 Absolute Lymphocytes 1.4 Absolute Monocytes 0.9 Absolute Eosinophils 0.5 Absolute Basophils 0.0 Sodium 136.2 L Potassium 3.8 Chloride 97 L Carbon Dioxide 30 Anion Gap 9 BUN 24 H Creatinine 0.86 Est GFR ( Amer) > 60 Est GFR (Non-Af Amer) > 60 Glucose 90 Calcium 9.2 Magnesium 2.1 06/23/17 06/23/17 15:20 21:35 Troponin I 0.019 0.014 Impressions: Chest X-Ray 06/25/17 00:00 IMPRESSION: Trace fluid or atelectasis in the bilateral costophrenic sulci. Stable cardiomegaly. Assessment & Plan - Diagnosis (1) Acute on chronic combined systolic and diastolic CHF (congestive heart failure) Is this a current diagnosis for this admission?: Yes Plan: Echo : EF of 35%; global hypokinesis; moderate MR ; continue Lasix IV 20 mg every 12 for now. (2) Cardiomyopathy Qualifiers: Cardiomyopathy type: alcoholic Qualified Code(s): I42.6 - Alcoholic cardiomyopathy Is this a current diagnosis for this admission?: Yes (3) Mitral regurgitation Qualifiers: Cardiac valve disease etiology: etiology unspecified Qualified Code(s): I34.0 - Nonrheumatic mitral (valve) insufficiency Is this a current diagnosis for this admission?: Yes (4) Alcohol abuse Is this a current diagnosis for this admission?: Yes (5) COPD (chronic obstructive pulmonary disease) Qualifiers: Emphysema type: unspecified Is this a current diagnosis for this admission?: Yes (6) Tobacco abuse Is this a current diagnosis for this admission?: Yes - Plan Summary Plan Summary: Patient has no need for transfer to [facility] at this time per their recommendation. They reported having seen him in the cardiology clinic in the past and that he should follow-up with them as outpatient. Will continue medical management for now. Plan is to discharge home with LifeVest when able to arrange one. Cardiology and case management trying to work on this, but this remains difficult as patient has no payer source.
[2017-06-29] MEDS: ATORVASTATIN CALCIUM 40 MG TABLET PO SCH (22:59)
[2017-06-30] MEDS: HEPARIN SOD (PORCINE) 5,000 UNIT/ML 1 ML SYRINGE SUBCUT SCH ×3 (05:50→23:27)
[2017-06-30] MEDS: IPRATROPIUM/ALBUTEROL 0.5-2.5 MG/3 ML AMPUL NEB SCH ×3 (08:34→19:54)
[2017-06-30] MEDS: FUROSEMIDE INJ/PF 20 MG/2 ML SDV IV SCH (09:33)
[2017-06-30] MEDS: NICOTINE 14 MG/24 HR PATCH.TD24 TD SCH (09:34)
[2017-06-30] MEDS: FLUTICASONE/SALMETEROL DISKUS 250-50 MCG/DOSE IH SCH ×2 (09:34→23:28)
[2017-06-30] MEDS: MULTIVITAMIN TABLET PO SCH (09:35)
[2017-06-30] MEDS: SACUBITRIL/VALSARTAN 24 MG/26 MG TABLET PO SCH ×2 (09:35→23:28)
[2017-06-30] MEDS: DIGOXIN 0.125 MG TABLET PO SCH (09:35)
[2017-06-30] MEDS: ASPIRIN 81 MG TABLET, ENT COATED PO SCH (09:35)
[2017-06-30] MEDS: DOCUSATE SODIUM 100 MG CAPSULE PO SCH (09:36)
[2017-06-30] MEDS: THIAMINE HCL 100 MG TABLET PO SCH (09:36)
[2017-06-30] MEDS: METOPROLOL SUCCINATE 25 MG TAB.SR.24H PO SCH (09:36)
--- NOTE | 2017-06-30 15:29 | PDOC PROGRESS REPORT ---
Subjective Progress Note for:: 06/30/17 Subjective:: Patient seems to be doing better with gradual improvement. Pt is denying any chest arm or neck discomfort. Patient denying any PND, orthopnea. Patient denied any sustained palpitations, dizziness, syncope, near syncope. Patient denying any fever chills. Patient denying any other significant discomfort. Patient has been encouraged to ambulate in the hallway. However he has not ambulated much. Patient is maintaining sinus rhythm. Telemetry strips reviewed. Showed no significant sustained tachycardia or bradycardia arrhythmias. Review of systems: Rest review of systems negative. Medications: Medications have been reviewed. Reason For Visit: ACUTE ON CHRONIC COMBINE CONGESTIVE HEART FAILURE Physical Exam Vital Signs: Temp Pulse Resp BP Pulse Ox 100.5 F H 88 16 96/54 L 95 06/30/17 11:29 06/30/17 14:11 06/30/17 14:11 06/30/17 11:29 06/30/17 14:11 Intake & Output 06/29/17 06/30/17 07/01/17 06:59 06:59 06:59 Intake Total 1896 1770 Output Total 1325 904 Balance 571 866 Weight 58.1 kg 58.6 kg Exam: GENERAL: well-nourished and in no acute distress. Alert and oriented x3 HEAD: Atraumatic, normocephalic. EYES: Pupils equal round and reactive to light, extraocular movements intact, sclera anicteric, conjunctiva are normal. ENT: TMs normal, nares patent, oropharynx clear without exudates. Moist mucous membranes. No oral ulcerations or bleeding gums noted NECK: supple without lymphadenopathy. Trachea is central. No cervical or axillary lymphadenopathy noted. Carotids are 2+, JVD WNL LUNGS: Respiration seems nonlabored, no significant accessory muscle action noted. Breath sounds clear to auscultation bilaterally and equal noted. No wheezes rales or rhonchi noted. No significant dullness noted on percussion. CHEST: Palpation of the chest wall shows no significant chest wall tenderness. No other significant abnormalities noted. 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 ABDOMEN: Soft, no significant tenderness appreciated, normoactive bowel sounds. No guarding, no rebound. No rigidity noted . No masses appreciated. EXTREMITIES: Pedal pulses are 1-2+, no calf tenderness noted. No clubbing or cyanosis. Negative + pedal edema noted NEUROLOGICAL: Focused neurological exam showed no significant neurologic deficit. Normal speech, no focal weakness appreciated. PSYCH: Normal mood, normal affect. Judgment and insight within normal limits. SKIN: No significant ecchymosis, rash, ulcerations or signs of pruritus noted. MUSCULOSKELETAL EXAM: No significant joint swelling noted. Results Laboratory Results: 06/29/17 05:48 06/29/17 05:48 06/23/17 06/23/17 15:20 21:35 Troponin I 0.019 0.014 Impressions: Chest X-Ray 06/25/17 00:00 IMPRESSION: Trace fluid or atelectasis in the bilateral costophrenic sulci. Stable cardiomegaly. Assessment & Plan - Diagnosis (1) Acute on chronic combined systolic and diastolic CHF (congestive heart failure) Is this a current diagnosis for this admission?: Yes (2) COPD (chronic obstructive pulmonary disease) Qualifiers: Emphysema type: unspecified Is this a current diagnosis for this admission?: Yes (3) Cardiomyopathy Qualifiers: Cardiomyopathy type: alcoholic Qualified Code(s): I42.6 - Alcoholic cardiomyopathy Is this a current diagnosis for this admission?: Yes (4) Mitral regurgitation Qualifiers: Cardiac valve disease etiology: etiology unspecified Qualified Code(s): I34.0 - Nonrheumatic mitral (valve) insufficiency Is this a current diagnosis for this admission?: Yes (5) Tobacco abuse Is this a current diagnosis for this admission?: Yes (6) Marihuana abuse Is this a current diagnosis for this admission?: Yes - Notes Notes: Congestive heart failure: This is much improved and clinically compensated. Will check a chest x-ray and a BNP level. Have switched patient to torsemide 20 mg p.o. daily in preparation for possible discharge. COPD: Patient has been advised to quit smoking. Cardiomyopathy: Currently on good medical regimen. Could switch patient to carvedilol at 6.25 mg p.o. twice daily. However since patient has COPD, significant will leave patient on metoprolol succinate and gradually increase dose as tolerated. This can be done as an outpatient. [facility] has refused to accept him but he does have a follow-up appointment with tobacco stripping machine operator. A LifeVest could not be arranged so far through the [facility] or through patient's insurance. Also the LifeVest company unwilling to do it for free. Patient told me this morning that if a payment plan would be feasible for him to get the LifeVest on a temporary basis. Patient is trying to arrange his own funds and will be calling his relatives and friends. Mitral regurgitation: Patient noted to have severe mitral regurgitation on echocardiogram. Recommend vasodilator therapy. Patient started on entresto who seems to be tolerating this well. Will request for follow-up appointment with [facility] thoracic surgery regarding definitive treatment for mitral regurgitation. Entered ordered in the chart for the hospice patient care secretary to get him an appointment. So far I have not received any notification from the director community organization as to whether such an appointment has been secured on not. Tobacco abuse: Patient advised to quit smoking. Currently on nicotine patch of cigarettes. Alcohol abuse: Patient was noted to have elevated alcohol level on presentation. Patient has been advised to quit his drinking. CODE STATUS was discussed, patient remains full code. Surrogate decision-maker unchanged. Multiple medical problems were addressed. - Time Time with patient: 15-25 minutes - CODE STATUS was discussed, patient remains full code. Surrogate decision-maker unchanged. Multiple medical problems were addressed. More than 50% of the time spent coordinating care, discussing management plans with involved caregivers. Management plans discussed with involved personnels. Medical decision making was of moderate to high complexity , patient's has multiple comorbidities. Medications reviewed and adjusted accordingly: Yes
--- NOTE | 2017-06-30 16:07 | RADIOLOGY REPORT (SQ) ---
EXAM DESCRIPTION: CHEST PA/LAT COMPLETED DATE/TIME: 06/30/2017 3:57 pm REASON FOR STUDY: followup CHF COMPARISON: 06/25/2017 EXAM PARAMETERS: NUMBER OF VIEWS: two views TECHNIQUE: Digital Frontal and Lateral radiographic views of the chest acquired. RADIATION DOSE: NA LIMITATIONS: none FINDINGS: LUNGS AND PLEURA: No opacities, masses or pneumothorax. No pleural effusion. MEDIASTINUM AND HILAR STRUCTURES: No masses or contour abnormalities. HEART AND VASCULAR STRUCTURES: Stable cardiomegaly. Normal vasculature. BONES: No acute findings. HARDWARE: None in the chest. OTHER: No other significant finding. IMPRESSION: Interval radiographic resolution of previously described pleural effusion. Stable cardi omegaly. No acute findings. TECHNICAL DOCUMENTATION: JOB ID: [id number] [employer]- All Rights Reserved Reading location - IP/workstation name: [email or web address]
--- NOTE | 2017-06-30 21:18 | PDOC PROGRESS REPORT ---
Subjective Progress Note for:: 06/30/17 Subjective:: Doing ok, denies chest pain, no significant shortness of breath. Denies palpitations, no fever or chills. Patient states is calling relatives friends to raise money to pay them for LifeVest, as he has no insurance. Reason For Visit: ACUTE ON CHRONIC COMBINE CONGESTIVE HEART FAILURE Physical Exam Vital Signs: Temp Pulse Resp BP Pulse Ox 99.1 F 83 18 100/59 L 95 06/30/17 19:51 06/30/17 19:51 06/30/17 19:51 06/30/17 19:51 06/30/17 19:51 Intake & Output 06/29/17 06/30/17 07/01/17 06:59 06:59 06:59 Intake Total 1896 1770 Output Total 1325 904 Balance 571 866 Weight 58.1 kg 58.6 kg GEN: NAD, well-developed, well-nourished CV: RRR, NL S1S2, 2-3/6 goldstein systolic murmur mitral area, no rubs, no gallops. LUNGS: CTA bilaterally ABDOMEN Soft, NT, +BS EXTERMITIES: 1+ pedal edema NEURO: Alert, oriented Results Laboratory Results: 06/29/17 05:48 06/29/17 05:48 06/23/17 06/23/17 15:20 21:35 Troponin I 0.019 0.014 Impressions: Chest X-Ray 06/30/17 15:23 IMPRESSION: Interval radiographic resolution of previously described pleural effusion. Stable cardiomegaly. No acute findings. Assessment & Plan - Diagnosis (1) Acute on chronic combined systolic and diastolic CHF (congestive heart failure) Is this a current diagnosis for this admission?: Yes Plan: Echo : EF of 35%; global hypokinesis; moderate MR ; necessarily changed to torsemide p.o. 20 mg daily by merchandise planning manager. (2) Cardiomyopathy Qualifiers: Cardiomyopathy type: alcoholic Qualified Code(s): I42.6 - Alcoholic cardiomyopathy Is this a current diagnosis for this admission?: Yes Plan: Continue diuresis, rest of management as an CHF above. Cardiology follow-up appreciated. (3) Mitral regurgitation Qualifiers: Cardiac valve disease etiology: etiology unspecified Qualified Code(s): I34.0 - Nonrheumatic mitral (valve) insufficiency Is this a current diagnosis for this admission?: Yes (4) Alcohol abuse Is this a current diagnosis for this admission?: Yes (5) COPD (chronic obstructive pulmonary disease) Qualifiers: Emphysema type: unspecified Is this a current diagnosis for this admission?: Yes (6) Tobacco abuse Is this a current diagnosis for this admission?: Yes - Plan Summary Plan Summary: Patient has no need for transfer to [facility] at this time per their recommendation. They reported having seen him in the cardiology clinic in the past and that he should follow-up with them as outpatient. Will continue medical management for now. Plan is to discharge home with LifeVest when able to arrange one. Cardiology and case management trying to work on this, but this remains difficult as patient has no payer source. Patient states he is trying to respond from friends and family to help pay for this
[2017-06-30] MEDS: ATORVASTATIN CALCIUM 40 MG TABLET PO SCH (23:26)
[2017-07-01] MEDS: HEPARIN SOD (PORCINE) 5,000 UNIT/ML 1 ML SYRINGE SUBCUT SCH ×3 (05:55→21:56)
[2017-07-01] MEDS: IPRATROPIUM/ALBUTEROL 0.5-2.5 MG/3 ML AMPUL NEB SCH ×3 (08:05→19:48)
[2017-07-01 09:44] LABS: ABSOLUTE EOSINOPHILS # (AUTO) 0.6 10^3/uL (0.0-0.6); ABSOLUTE LYMPHOCYTES (AUTO) 1.3 10^3/uL (0.5-4.7); ABSOLUTE MONOCYTES (AUTO) 0.7 10^3/uL (0.1-1.4); ABSOLUTE NEUT (AUTO) 2.7 10^3/uL (1.7-8.2); BASOPHILS % (AUTO) 0.7 % (0-2); EOSINOPHILS % (AUTO) 10.7 % (0-6); HEMATOCRIT 42.2 % (37.9-51.0); HEMOGLOBIN 14.1 g/dL (13.5-17.0); LYMPHOCYTES % (AUTO) 25.4 % (13-45); MEAN CORPUSCULAR HEMOGLOBIN 33.4 pg (27.0-33.4); MEAN CORPUSCULAR HGB CONC 33.4 g/dL (32.0-36.0); MEAN CORPUSCULAR VOLUME 100 fl (80-97); MONOCYTES % (AUTO) 12.4 % (3-13); PLATELET COUNT 246 10^3/uL (150-450); RED BLOOD COUNT 4.22 10^6/uL (4.35-5.55); RED CELL DISTRIBUTION WIDTH 14.3 % (11.5-14.0); SEGMENTED NEUTROPHILS % (AUTO) 50.8 % (42-78); TOTAL CELLS COUNTED % (AUTO) 100 %; WHITE BLOOD COUNT 5.3 10^3/uL (4.0-10.5)
[2017-07-01] MEDS: MULTIVITAMIN TABLET PO SCH (09:58)
[2017-07-01] MEDS: TORSEMIDE 20 MG TABLET PO SCH (09:59)
[2017-07-01] MEDS: THIAMINE HCL 100 MG TABLET PO SCH (09:59)
[2017-07-01] MEDS: NICOTINE 14 MG/24 HR PATCH.TD24 TD SCH (09:59)
[2017-07-01] MEDS: METOPROLOL SUCCINATE 25 MG TAB.SR.24H PO SCH (10:01)
[2017-07-01] MEDS: DOCUSATE SODIUM 100 MG CAPSULE PO SCH (10:01)
[2017-07-01] MEDS: ASPIRIN 81 MG TABLET, ENT COATED PO SCH (10:01)
[2017-07-01] MEDS: DIGOXIN 0.125 MG TABLET PO SCH (10:02)
[2017-07-01] MEDS: FLUTICASONE/SALMETEROL DISKUS 250-50 MCG/DOSE IH SCH ×2 (10:02→22:02)
[2017-07-01] MEDS: SACUBITRIL/VALSARTAN 24 MG/26 MG TABLET PO SCH ×2 (10:03→21:56)
[2017-07-01 10:05] LABS: ANION GAP 9 (5-19); BLOOD UREA NITROGEN 18 mg/dL (7-20); CALCIUM 9.1 mg/dL (8.4-10.2); CARBON DIOXIDE 29 mmol/L (22-30); CHLORIDE 98 mmol/L (98-107); GLUCOSE 147 mg/dL (75-110); POTASSIUM 4.1 mmol/L (3.6-5.0); SODIUM 135.7 mmol/L (137-145)
--- NOTE | 2017-07-01 10:43 | PDOC PROGRESS REPORT ---
Subjective Progress Note for:: 07/01/17 Subjective:: Doing ok, denies chest pain, no significant shortness of breath. Denies palpitations, no fever or chills. Patient states he is still calling relatives and friends to raise money to pay for a LifeVest, as he has no insurance to cover one, which he needs. Reason For Visit: ACUTE ON CHRONIC COMBINE CONGESTIVE HEART FAILURE Physical Exam Vital Signs: Temp Pulse Resp BP Pulse Ox 97.9 F 86 16 99/63 L 97 06/30/17 23:44 07/01/17 08:05 07/01/17 08:05 06/30/17 23:44 07/01/17 08:05 Intake & Output 06/30/17 07/01/17 07/02/17 06:59 06:59 06:59 Intake Total 1770 660 Output Total 904 1000 Balance 866 -340 Weight 58.6 kg 58.9 kg GEN: NAD, well-developed, well-nourished CV: RRR, NL S1S2, 2-3/6 goldstein systolic murmur mitral area, no rubs, no gallops. LUNGS: CTA bilaterally ABDOMEN Soft, NT, +BS EXTERMITIES: 1+ pedal edema NEURO: Alert, oriented Results Laboratory Results: 07/01/17 09:10 07/01/17 09:10 07/01/17 07/01/17 09:10 09:10 WBC 5.3 RBC 4.22 L Hgb 14.1 Hct 42.2 MCV 100 H MCH 33.4 MCHC 33.4 RDW 14.3 H Plt Count 246 Seg Neutrophils % 50.8 Lymphocytes % 25.4 Monocytes % 12.4 Eosinophils % 10.7 H Basophils % 0.7 Absolute Neutrophils 2.7 Absolute Lymphocytes 1.3 Absolute Monocytes 0.7 Absolute Eosinophils 0.6 Absolute Basophils 0.0 Sodium 135.7 L Potassium 4.1 Chloride 98 Carbon Dioxide 29 Anion Gap 9 BUN 18 Creatinine 0.86 Est GFR ( Amer) > 60 Est GFR (Non-Af Amer) > 60 Glucose 147 H Calcium 9.1 06/23/17 06/23/17 07/01/17 15:20 21:35 09:10 Troponin I 0.019 0.014 NT-Pro-B Natriuret Pep 141 Impressions: Chest X-Ray 06/30/17 15:23 IMPRESSION: Interval radiographic resolution of previously described pleural effusion. Stable cardiomegaly. No acute findings. Assessment & Plan - Diagnosis (1) Acute on chronic combined systolic and diastolic CHF (congestive heart failure) Is this a current diagnosis for this admission?: Yes Plan: Echo : EF of 35%; global hypokinesis; moderate MR ; Lasix IV was changed to torsemide p.o. 20 mg daily by signal supervisor. (2) Cardiomyopathy Qualifiers: Cardiomyopathy type: alcoholic Qualified Code(s): I42.6 - Alcoholic cardiomyopathy Is this a current diagnosis for this admission?: Yes Plan: Continue diuresis, rest of management as an CHF above. Cardiology follow-up appreciated. (3) Mitral regurgitation Qualifiers: Cardiac valve disease etiology: etiology unspecified Qualified Code(s): I34.0 - Nonrheumatic mitral (valve) insufficiency Is this a current diagnosis for this admission?: Yes (4) Alcohol abuse Is this a current diagnosis for this admission?: Yes (5) COPD (chronic obstructive pulmonary disease) Qualifiers: Emphysema type: unspecified Is this a current diagnosis for this admission?: Yes (6) Tobacco abuse Is this a current diagnosis for this admission?: Yes Plan: Smoking cessation counseling. Continue nicotine patch. - Plan Summary Plan Summary: Patient has no need for transfer to [facility] at this time per their recommendation. They reported having seen him in the cardiology clinic in the past and that he should follow-up with them as outpatient. Will continue medical management for now. Plan is to discharge home with LifeVest when able to arrange one. Cardiology and case management trying to work on this, but this remains difficult as patient has no payer source. Patient states he is still trying to raise funds from friends and family to help pay for this
--- NOTE | 2017-07-01 13:45 | PDOC PROGRESS REPORT ---
Subjective Progress Note for:: 07/01/17 Subjective:: Patient seems to be doing better with gradual improvement. Pt is denying any chest arm or neck discomfort. Patient denying any PND, orthopnea. Patient denied any sustained palpitations, dizziness, syncope, near syncope. Patient denying any fever chills. Patient denying any other significant discomfort. Patient has been encouraged to ambulate in the hallway. Patient claims he ambulated in the hallway. Patient is maintaining sinus rhythm. Telemetry strips reviewed. Showed no significant sustained tachycardia or bradycardia arrhythmias. Review of systems: Rest review of systems negative. Medications: Medications have been reviewed. Reason For Visit: ACUTE ON CHRONIC COMBINE CONGESTIVE HEART FAILURE Physical Exam Vital Signs: Temp Pulse Resp BP Pulse Ox 97.9 F 86 16 99/63 L 97 06/30/17 23:44 07/01/17 08:05 07/01/17 08:05 06/30/17 23:44 07/01/17 08:05 Intake & Output 06/30/17 07/01/17 07/02/17 06:59 06:59 06:59 Intake Total 1770 660 Output Total 904 1000 Balance 866 -340 Weight 58.6 kg 58.9 kg Exam: GENERAL: well-nourished and in no acute distress. Alert and oriented x3 HEAD: Atraumatic, normocephalic. EYES: Pupils equal round and reactive to light, extraocular movements intact, sclera anicteric, conjunctiva are normal. ENT: TMs normal, nares patent, oropharynx clear without exudates. Moist mucous membranes. No oral ulcerations or bleeding gums noted NECK: supple without lymphadenopathy. Trachea is central. No cervical or axillary lymphadenopathy noted. Carotids are 2+, JVD WNL LUNGS: Respiration seems nonlabored, no significant accessory muscle action noted. Breath sounds clear to auscultation bilaterally and equal noted. No wheezes rales or rhonchi noted. No significant dullness noted on percussion. CHEST: Palpation of the chest wall shows no significant chest wall tenderness. No other significant abnormalities noted. 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 ABDOMEN: Soft, no significant tenderness appreciated, normoactive bowel sounds. No guarding, no rebound. No rigidity noted . No masses appreciated. EXTREMITIES: Pedal pulses are 1-2+, no calf tenderness noted. No clubbing or cyanosis.trace pedal edema noted NEUROLOGICAL: Focused neurological exam showed no significant neurologic deficit. Normal speech, no focal weakness appreciated. PSYCH: Normal mood, normal affect. Judgment and insight within normal limits. SKIN: No significant ecchymosis, skin is noted to be warm. MUSCULOSKELETAL EXAM: No significant acute joint swelling noted. Results Laboratory Results: 07/01/17 09:10 07/01/17 09:10 07/01/17 07/01/17 09:10 09:10 WBC 5.3 RBC 4.22 L Hgb 14.1 Hct 42.2 MCV 100 H MCH 33.4 MCHC 33.4 RDW 14.3 H Plt Count 246 Seg Neutrophils % 50.8 Lymphocytes % 25.4 Monocytes % 12.4 Eosinophils % 10.7 H Basophils % 0.7 Absolute Neutrophils 2.7 Absolute Lymphocytes 1.3 Absolute Monocytes 0.7 Absolute Eosinophils 0.6 Absolute Basophils 0.0 Sodium 135.7 L Potassium 4.1 Chloride 98 Carbon Dioxide 29 Anion Gap 9 BUN 18 Creatinine 0.86 Est GFR ( Amer) > 60 Est GFR (Non-Af Amer) > 60 Glucose 147 H Calcium 9.1 06/23/17 06/23/17 07/01/17 15:20 21:35 09:10 Troponin I 0.019 0.014 NT-Pro-B Natriuret Pep 141 EKG Comments: Telemetry strips shows sinus rhythm without any sustained tachycardia or bradycardia. Impressions: Chest X-Ray 06/30/17 15:23 IMPRESSION: Interval radiographic resolution of previously described pleural effusion. Stable cardiomegaly. No acute findings. Assessment & Plan - Diagnosis (1) Acute on chronic combined systolic and diastolic CHF (congestive heart failure) Is this a current diagnosis for this admission?: Yes (2) COPD (chronic obstructive pulmonary disease) Qualifiers: Emphysema type: unspecified Is this a current diagnosis for this admission?: Yes (3) Cardiomyopathy Qualifiers: Cardiomyopathy type: alcoholic Qualified Code(s): I42.6 - Alcoholic cardiomyopathy Is this a current diagnosis for this admission?: Yes (4) Mitral regurgitation Qualifiers: Cardiac valve disease etiology: etiology unspecified Qualified Code(s): I34.0 - Nonrheumatic mitral (valve) insufficiency Is this a current diagnosis for this admission?: Yes (5) Tobacco abuse Is this a current diagnosis for this admission?: Yes (6) Marihuana abuse Is this a current diagnosis for this admission?: Yes - Notes Notes: Will repeat a chest x-ray, BNP level and an EKG in morning for predischarge baseline. Congestive heart failure: This is much improved and clinically compensated. Continue patient on torsemide 20 mg p.o. daily in preparation for possible discharge. COPD: Patient has been advised to quit smoking. Cardiomyopathy: Currently on good medical regimen. Could switch patient to carvedilol at 6.25 mg p.o. twice daily. However since patient has COPD, significant will leave patient on metoprolol succinate and gradually increase dose as tolerated. This can be done as an outpatient. [facility] has refused to accept him but he does have a follow-up appointment with employment coordinator. A LifeVest could not be arranged so far [facility] or through patient's insurance. Also the LifeVest company unwilling to do it for free. Patient told me this morning that if a payment plan would be feasible for him to get the LifeVest on a temporary basis. Patient is trying to arrange his own funds and will be calling his relatives and friends. Mitral regurgitation: Patient noted to have severe mitral regurgitation on echocardiogram. Recommend vasodilator therapy. Patient started on entresto who seems to be tolerating this well. Will request for follow-up appointment with [facility] cardiology thoracic surgery regarding definitive treatment for mitral regurgitation. Entered ordered in the chart for the alumnae secretary to get him an appointment. So far I have not received any notification from the chemical unit operator as to whether such an appointment has been secured on not. Tobacco abuse: Patient advised to quit smoking. Currently on nicotine patch of cigarettes. Alcohol abuse: Patient was noted to have elevated alcohol level on presentation. Patient has been advised to quit his drinking. CODE STATUS was discussed, patient remains full code. Surrogate decision-maker unchanged. Multiple medical problems were addressed. - Time Time with patient: Greater than 35 minutes - CODE STATUS was discussed, patient remains full code. Surrogate decision-maker unchanged. Multiple medical problems were addressed. More than 50% of the time spent coordinating care, discussing management plans with involved caregivers. Management plans discussed with involved personnels. Medical decision making was of moderate to high complexity, patient's has multiple comorbidities. Medications reviewed and adjusted accordingly: Yes
--- NOTE | 2017-07-01 14:39 | RADIOLOGY REPORT (SQ) ---
EXAM DESCRIPTION: CHEST PA/LAT COMPLETED DATE/TIME: 07/01/2017 2:22 pm REASON FOR STUDY: followup CHF COMPARISON: 06/30/2017. NUMBER OF VIEWS: Two view. TECHNIQUE: Frontal and lateral radiographic views of the chest acquired. LIMITATIONS: None. FINDINGS: LUNGS AND PLEURA: No opacities, masses or pneumothorax. No pleural effusion. MEDIASTINUM AND HILAR STRUCTURES: No masses. No contour abnormalities. HEART AND VASCULAR STRUCTURES: Heart enlarged without failure. Aorta normal for age. BONES: No acute findings. HARDWARE: Sternotomy wires. OTHER: No other significant finding. IMPRESSION: CARDIAC ENLARGEMENT WITHOUT FAILURE. TECHNICAL DOCUMENTATION: JOB ID: [id number] [employer]- All Rights Reserved Reading location - IP/workstation name: [email or web address]
[2017-07-01 16:17] LABS: ANION GAP 8 (5-19); BLOOD UREA NITROGEN 21 mg/dL (7-20); CALCIUM 8.6 mg/dL (8.4-10.2); CARBON DIOXIDE 31 mmol/L (22-30); CHLORIDE 98 mmol/L (98-107); GLUCOSE 77 mg/dL (75-110); POTASSIUM 4.1 mmol/L (3.6-5.0); SODIUM 136.5 mmol/L (137-145)
[2017-07-01] MEDS ORDERED: FLUTICASONE/SALMETEROL DISKUS 250-50 MCG/DOSE IH ONE (21:53)
[2017-07-01] MEDS: ATORVASTATIN CALCIUM 40 MG TABLET PO SCH (21:56)
[2017-07-02] MEDS: HEPARIN SOD (PORCINE) 5,000 UNIT/ML 1 ML SYRINGE SUBCUT SCH ×3 (05:58→22:18)
[2017-07-02] MEDS: IPRATROPIUM/ALBUTEROL 0.5-2.5 MG/3 ML AMPUL NEB SCH ×3 (08:01→20:01)
--- NOTE | 2017-07-02 09:13 | EKG REPORT ---
SEVERITY:- ABNORMAL ECG - SINUS RHYTHM RUN OF VENTRICULAR PREMATURE COMPLEXES NONSPECIFIC INTRAVENTRICULAR CONDUCTION DELAY LEFT VENTRICULAR HYPERTROPHY : Confirmed by: Cesilia Akins 02-Jul-2017 09:13:06
[2017-07-02] MEDS: FLUTICASONE/SALMETEROL DISKUS 250-50 MCG/DOSE IH SCH ×2 (09:39→22:17)
[2017-07-02] MEDS: NICOTINE 14 MG/24 HR PATCH.TD24 TD SCH (09:39)
[2017-07-02] MEDS: TORSEMIDE 20 MG TABLET PO SCH (09:39)
[2017-07-02] MEDS: SACUBITRIL/VALSARTAN 24 MG/26 MG TABLET PO SCH ×2 (09:39→22:18)
[2017-07-02] MEDS: ASPIRIN 81 MG TABLET, ENT COATED PO SCH (09:39)
[2017-07-02] MEDS: DOCUSATE SODIUM 100 MG CAPSULE PO SCH (09:39)
[2017-07-02] MEDS: METOPROLOL SUCCINATE 25 MG TAB.SR.24H PO SCH (09:39)
[2017-07-02] MEDS: MULTIVITAMIN TABLET PO SCH (09:39)
[2017-07-02] MEDS: DIGOXIN 0.125 MG TABLET PO SCH (09:39)
[2017-07-02] MEDS: THIAMINE HCL 100 MG TABLET PO SCH (09:39)
--- NOTE | 2017-07-02 19:31 | PDOC PROGRESS REPORT ---
Subjective Progress Note for:: 07/02/17 Subjective:: Chest x-ray from yesterday reviewed. Other lab work from yesterday reviewed. EKG from this morning reviewed. Patient seems to be doing better with gradual improvement. Pt is denying any chest arm or neck discomfort. Patient denying any PND, orthopnea. Patient denied any sustained palpitations, dizziness, syncope, near syncope. Patient denying any fever chills. Patient denying any other significant discomfort. Patient has been encouraged to ambulate in the hallway. Patient claims he ambulated in the hallway. Patient is maintaining sinus rhythm. Telemetry strips reviewed. Showed no significant sustained tachycardia or bradycardia arrhythmias. Patient noted to have increased ventricular ectopy. Review of systems: Rest review of systems negative. Medications: Medications have been reviewed. Reason For Visit: ACUTE ON CHRONIC COMBINE CONGESTIVE HEART FAILURE Physical Exam Vital Signs: Temp Pulse Resp BP Pulse Ox 98.9 F 87 18 96/60 L 98 07/02/17 16:34 07/02/17 16:34 07/02/17 16:34 07/02/17 16:34 07/02/17 16:34 Intake & Output 07/01/17 07/02/17 07/03/17 06:59 06:59 06:59 Intake Total 660 1283 1550 Output Total 1000 1075 Balance -273 274 6455 Weight 58.9 kg Exam: GENERAL: well-nourished and in no acute distress. Alert and oriented x3 HEAD: Atraumatic, normocephalic. EYES: Pupils equal round and reactive to light, extraocular movements intact, sclera anicteric, conjunctiva are normal. ENT: TMs normal, nares patent, oropharynx clear without exudates. Moist mucous membranes. No oral ulcerations or bleeding gums noted NECK: supple without lymphadenopathy. Trachea is central. No cervical or axillary lymphadenopathy noted. Carotids are 2+, JVD WNL LUNGS: Respiration seems nonlabored, no significant accessory muscle action noted. Breath sounds clear to auscultation bilaterally and equal noted. No wheezes rales or rhonchi noted. No significant dullness noted on percussion. CHEST: Palpation of the chest wall shows no significant chest wall tenderness. No other significant abnormalities noted. 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 ABDOMEN: Soft, no significant tenderness appreciated, normoactive bowel sounds. No guarding, no rebound. No rigidity noted . No masses appreciated. EXTREMITIES: Pedal pulses are 1-2+, no calf tenderness noted. No clubbing or cyanosis.trace to 1+ pedal edema noted NEUROLOGICAL: Focused neurological exam showed no significant neurologic deficit. Normal speech, no focal weakness appreciated. PSYCH: Normal mood, normal affect. Judgment and insight within normal limits. SKIN: No significant ecchymosis, skin is noted to be warm. MUSCULOSKELETAL EXAM: No significant acute joint swelling noted. Results Laboratory Results: 07/01/17 09:10 07/01/17 15:20 06/23/17 06/23/17 07/01/17 15:20 21:35 09:10 Troponin I 0.019 0.014 NT-Pro-B Natriuret Pep 141 07/02/17 04:19 Troponin I NT-Pro-B Natriuret Pep 188 Impressions: Chest X-Ray 07/01/17 13:46 IMPRESSION: CARDIAC ENLARGEMENT WITHOUT FAILURE. Assessment & Plan - Diagnosis (1) Acute on chronic combined systolic and diastolic CHF (congestive heart failure) Is this a current diagnosis for this admission?: Yes (2) COPD (chronic obstructive pulmonary disease) Qualifiers: Emphysema type: unspecified Is this a current diagnosis for this admission?: Yes (3) Cardiomyopathy Qualifiers: Cardiomyopathy type: alcoholic Qualified Code(s): I42.6 - Alcoholic cardiomyopathy Is this a current diagnosis for this admission?: Yes (4) Mitral regurgitation Qualifiers: Cardiac valve disease etiology: etiology unspecified Qualified Code(s): I34.0 - Nonrheumatic mitral (valve) insufficiency Is this a current diagnosis for this admission?: Yes (5) Tobacco abuse Is this a current diagnosis for this admission?: Yes (6) Marihuana abuse Is this a current diagnosis for this admission?: Yes - Notes Notes: Chest x-ray reviewed. Twelve-lead EKG is reviewed. Patient did benefit from education regarding CHF controlled. Chest x-ray shows cardiomegaly without any residual CHF by x-ray report. BNP results reviewed. Discussed case with patient advocate of [facility]. Patient currently waiting an appointment with the cardiothoracic surgeon for mitral regurgitation. Congestive heart failure: This is much improved and clinically compensated. Continue patient on torsemide 20 mg p.o. daily in preparation for possible discharge. COPD: Patient has been advised to quit smoking. Cardiomyopathy: Currently on good medical regimen. Could switch patient to carvedilol at 6.25 mg p.o. twice daily. However since patient has COPD, significant will leave patient on metoprolol succinate and gradually increase dose as tolerated. This can be done as an outpatient. [facility] has refused to accept him but he does have a follow-up appointment with public service administrator. A LifeVest could not be arranged so far through the [facility] system or through patient's insurance. Also the LifeVest company unwilling to do it for free. Patient told me this morning that if a payment plan would be feasible for him to get the LifeVest on a temporary basis. Patient is trying to arrange his own funds and will be calling his relatives and friends. Mitral regurgitation: Patient noted to have severe mitral regurgitation on echocardiogram. Recommend vasodilator therapy. Patient started on entresto who seems to be tolerating this well. Will request for follow-up appointment with [facility] thoracic surgery regarding definitive treatment for mitral regurgitation. Orders in the chart for the area secretary to get him an appointment. So far I have not received any notification from the community pharmacist as to whether such an appointment has been secured on not. Tobacco abuse: Patient advised to quit smoking. Currently on nicotine patch of cigarettes. Alcohol abuse: Patient was noted to have elevated alcohol level on presentation. Patient has been advised to quit his drinking. CODE STATUS was discussed, patient remains full code. Surrogate decision-maker unchanged. Multiple medical problems were addressed. - Time Time with patient: 15-25 minutes - CODE STATUS was discussed, patient remains full code. Surrogate decision-maker unchanged. Multiple medical problems were addressed. More than 50% of the time spent coordinating care, discussing management plans with involved caregivers. Management plans discussed with involved personnels. Medical decision making was of moderate to high complexity , patient's has multiple comorbidities. Medications reviewed and adjusted accordingly: Yes
--- NOTE | 2017-07-02 20:57 | PDOC PROGRESS REPORT ---
Subjective Progress Note for:: 07/02/17 Reason For Visit: ACUTE ON CHRONIC COMBINE CONGESTIVE HEART FAILURE Physical Exam Vital Signs: Temp Pulse Resp BP Pulse Ox 98.9 F 83 14 96/60 L 98 07/02/17 16:34 07/02/17 20:00 07/02/17 20:00 07/02/17 16:34 07/02/17 16:34 Intake & Output 07/01/17 07/02/17 07/03/17 06:59 06:59 06:59 Intake Total 660 1283 1550 Output Total 1000 1075 Balance -353 448 5713 Weight 58.9 kg Results Laboratory Results: 07/01/17 09:10 07/01/17 15:20 06/23/17 06/23/17 07/01/17 15:20 21:35 09:10 Troponin I 0.019 0.014 NT-Pro-B Natriuret Pep 141 07/02/17 04:19 Troponin I NT-Pro-B Natriuret Pep 188 Impressions: Chest X-Ray 07/01/17 13:46 IMPRESSION: CARDIAC ENLARGEMENT WITHOUT FAILURE. Assessment & Plan - Diagnosis (1) Acute on chronic combined systolic and diastolic CHF (congestive heart failure) Is this a current diagnosis for this admission?: Yes Plan: Echo : EF of 35%; global hypokinesis; moderate MR ; Lasix IV was changed to torsemide p.o. 20 mg daily per assistant accounting manager. (2) Cardiomyopathy Qualifiers: Cardiomyopathy type: alcoholic Qualified Code(s): I42.6 - Alcoholic cardiomyopathy Is this a current diagnosis for this admission?: Yes Plan: Continue diuresis, rest of management as in CHF above. Cardiology follow-up appreciated. (3) Mitral regurgitation Qualifiers: Cardiac valve disease etiology: etiology unspecified Qualified Code(s): I34.0 - Nonrheumatic mitral (valve) insufficiency Is this a current diagnosis for this admission?: Yes (4) Alcohol abuse Is this a current diagnosis for this admission?: Yes (5) COPD (chronic obstructive pulmonary disease) Qualifiers: Emphysema type: unspecified Is this a current diagnosis for this admission?: Yes (6) Tobacco abuse Is this a current diagnosis for this admission?: Yes Plan: Smoking cessation counseling. Continue nicotine patch.
[2017-07-02] MEDS: ATORVASTATIN CALCIUM 40 MG TABLET PO SCH (22:18)
[2017-07-03] MEDS: HEPARIN SOD (PORCINE) 5,000 UNIT/ML 1 ML SYRINGE SUBCUT SCH ×2 (05:33→15:03)
[2017-07-03] MEDS: IPRATROPIUM/ALBUTEROL 0.5-2.5 MG/3 ML AMPUL NEB SCH ×2 (08:25→14:10)
[2017-07-03] MEDS: DIGOXIN 0.125 MG TABLET PO SCH (09:57)
[2017-07-03] MEDS: ASPIRIN 81 MG TABLET, ENT COATED PO SCH (09:57)
[2017-07-03] MEDS: NICOTINE 14 MG/24 HR PATCH.TD24 TD SCH (09:58)
[2017-07-03] MEDS: SACUBITRIL/VALSARTAN 24 MG/26 MG TABLET PO SCH (09:58)
[2017-07-03] MEDS: MULTIVITAMIN TABLET PO SCH (09:58)
[2017-07-03] MEDS: DOCUSATE SODIUM 100 MG CAPSULE PO SCH (09:58)
[2017-07-03] MEDS: TORSEMIDE 20 MG TABLET PO SCH (09:58)
[2017-07-03] MEDS: FLUTICASONE/SALMETEROL DISKUS 250-50 MCG/DOSE IH SCH (09:58)
[2017-07-03] MEDS: THIAMINE HCL 100 MG TABLET PO SCH (09:58)
[2017-07-03] MEDS ORDERED: CARVEDILOL 6.25 MG TABLET PO SCH (10:00)
--- NOTE | 2017-07-03 12:34 | PDOC PROGRESS REPORT ---
Subjective Progress Note for:: 07/03/17 Subjective:: Is Patient seems to be doing better with gradual improvement. Pt is denying any chest arm or neck discomfort. Patient denying any PND, orthopnea. Patient denied any sustained palpitations, dizziness, syncope, near syncope. Patient denying any fever chills. Patient denying any other significant discomfort. Patient has been encouraged to ambulate in the hallway. Patient has follow-up appointment set up with cardiovascular center at [facility]. He has follow-up appointment with the cardiac surgeon and also flour distributor. Currently patient waiting for resolution about whether he is going to get a LifeVest on not. Patient is maintaining sinus rhythm. Telemetry strips reviewed. Showed no significant sustained tachycardia or bradycardia arrhythmias. Patient noted to have increased ventricular ectopy. Review of systems: Rest review of systems negative. Medications: Medications have been reviewed. Reason For Visit: ACUTE ON CHRONIC COMBINE CONGESTIVE HEART FAILURE Physical Exam Vital Signs: Temp Pulse Resp BP Pulse Ox 97.6 F 79 17 97/57 L 97 07/03/17 11:27 07/03/17 11:27 07/03/17 11:27 07/03/17 11:27 07/03/17 11:27 Intake & Output 07/02/17 07/03/17 07/04/17 06:59 06:59 06:59 Intake Total 1283 2250 Output Total 1075 Balance 208 2250 Weight 59 kg Exam: GENERAL: well-nourished and in no acute distress. Alert and oriented x3 HEAD: Atraumatic, normocephalic. EYES: Pupils equal round and reactive to light, extraocular movements intact, sclera anicteric, conjunctiva are normal. ENT: TMs normal, nares patent, oropharynx clear without exudates. Moist mucous membranes. No oral ulcerations or bleeding gums noted NECK: supple without lymphadenopathy. Trachea is central. No cervical or axillary lymphadenopathy noted. Carotids are 2+, JVD WNL LUNGS: Respiration seems nonlabored, no significant accessory muscle action noted. Breath sounds clear to auscultation bilaterally and equal noted. No wheezes rales or rhonchi noted. No significant dullness noted on percussion. CHEST: Palpation of the chest wall shows no significant chest wall tenderness. No other significant abnormalities noted. 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 ABDOMEN: Soft, no significant tenderness appreciated, normoactive bowel sounds. No guarding, no rebound. No rigidity noted . No masses appreciated. EXTREMITIES: Pedal pulses are 1-2+, no calf tenderness noted. No clubbing or cyanosis. Negative + pedal edema noted NEUROLOGICAL: Focused neurological exam showed no significant neurologic deficit. Normal speech, no focal weakness appreciated. PSYCH: Normal mood, normal affect. Judgment and insight within normal limits. SKIN: No significant ecchymosis, skin is noted to be warm. MUSCULOSKELETAL EXAM: No significant acute joint swelling noted. Results Laboratory Results: 07/01/17 09:10 07/01/17 15:20 06/23/17 06/23/17 07/01/17 15:20 21:35 09:10 Troponin I 0.019 0.014 NT-Pro-B Natriuret Pep 141 07/02/17 04:19 Troponin I NT-Pro-B Natriuret Pep 188 Impressions: Chest X-Ray 07/01/17 13:46 IMPRESSION: CARDIAC ENLARGEMENT WITHOUT FAILURE. Assessment & Plan - Diagnosis (1) Acute on chronic combined systolic and diastolic CHF (congestive heart failure) Is this a current diagnosis for this admission?: Yes (2) COPD (chronic obstructive pulmonary disease) Qualifiers: Emphysema type: unspecified Is this a current diagnosis for this admission?: Yes (3) Cardiomyopathy Qualifiers: Cardiomyopathy type: alcoholic Qualified Code(s): I42.6 - Alcoholic cardiomyopathy Is this a current diagnosis for this admission?: Yes (4) Mitral regurgitation Qualifiers: Cardiac valve disease etiology: etiology unspecified Qualified Code(s): I34.0 - Nonrheumatic mitral (valve) insufficiency Is this a current diagnosis for this admission?: Yes (5) Tobacco abuse Is this a current diagnosis for this admission?: Yes (6) Marihuana abuse Is this a current diagnosis for this admission?: Yes - Notes Notes: Patient seems ready for discharge from cardiac standpoint. He understands that LifeVest is a recommendation and he may or may not be able to afford it. I am told that his family members, the hospital administration as well as his [employer] company are trying to help help him regarding this. Patient also advised importance of compliance with medication and abstinence from all kind of substance abuse, alcohol abuse, tobacco abuse. Patient now understands that definitive procedures to help him are somewhat dependent on his personal responsibilities. Congestive heart failure: This is much improved and clinically compensated. Continue patient on torsemide 20 mg p.o. COPD: Patient has been advised to quit smoking. Cardiomyopathy: Currently on good medical regimen. Will leave patient on metoprolol succinate and gradually increase dose as tolerated. This can be done as an outpatient. [facility] has refused to accept him but he does have a follow-up appointment with flour distributor. A LifeVest could not be arranged so far through the [facility] or through patient's insurance. Also the LifeVest company unwilling to do it for free. Patient told me this morning that if a payment plan would be feasible for him to get the LifeVest on a temporary basis. Patient is trying to arrange his own funds and will be calling his relatives and friends. today he tells me that his brother had difference with him yesterday and apparently he is waiting for some form to be completed. Mitral regurgitation: Patient noted to have severe mitral regurgitation on echocardiogram. Recommend vasodilator therapy. Patient started on entresto who seems to be tolerating this well. Will request for follow-up appointment with [facility] thoracic surgery regarding definitive treatment for mitral regurgitation. Orders in the chart for the church secretary to get him an appointment. So far I have not received any notification from the blood donor unit assistant as to whether such an appointment has been secured on not. Tobacco abuse: Patient advised to quit smoking. Currently on nicotine patch of cigarettes. Alcohol abuse: Patient was noted to have elevated alcohol level on presentation. Patient has been advised to quit his drinking. CODE STATUS was discussed, patient remains full code. Surrogate decision-maker unchanged. Multiple medical problems were addressed. - Time Time with patient: 15-25 minutes - CODE STATUS was discussed, patient remains full code. Surrogate decision-maker unchanged. Multiple medical problems were addressed. More than 50% of the time spent coordinating care, discussing management plans with involved caregivers. Management plans discussed with involved personnels. Medical decision making was of moderate to high complexity , patient's has multiple comorbidities. Medications reviewed and adjusted accordingly: Yes
[2017-07-03 15:18] VITALS: BP 104/65
--- NOTE | 2017-07-06 15:04 | PDOC DISCHARGE SUMMARY ---
General - Admit/Disc Date/PCP Admission Date/Primary Care Provider: 06/23/17 08:41 Discharge Date: 07/03/17 - Discharge Diagnosis (1) Acute on chronic combined systolic and diastolic CHF (congestive heart failure) Is this a current diagnosis for this admission?: Yes (2) Alcohol abuse Is this a current diagnosis for this admission?: Yes (3) COPD (chronic obstructive pulmonary disease) Is this a current diagnosis for this admission?: Yes (4) Cardiomyopathy Is this a current diagnosis for this admission?: Yes (5) Mitral regurgitation Is this a current diagnosis for this admission?: Yes (6) Tobacco abuse Is this a current diagnosis for this admission?: Yes - Additional Information Resuscitation Status: Full Code Discharge Diet: Cardiac Discharge Activity: Activity As Tolerated, Balance Activity w/Rest, Weigh Daily Prescriptions: Atorvastatin Calcium [Lipitor 40 mg Tablet] 40 mg PO QHS 30 Days tablet Carvedilol [Coreg 6.25 mg Tablet] 6.25 mg PO Q12 30 Days #60 tablet Sacubitril/Valsartan [Entresto 24 mg/26 mg Tablet] 1 tab PO Q12 30 Days #60 tablet Torsemide [Demadex 20 mg Tablet] 20 mg PO DAILY 30 Days #30 tablet Home Medications: Albuterol Sulfate [Proair HFA Inhalation Aerosol 8.5 gm MDI] 2 puff IH Q6HP PRN 06/23/17 Aspirin [Aspirin EC] 81 mg PO DAILY 06/23/17 Carvedilol [Coreg 3.125 mg Tablet] 3.125 mg PO Q12 06/23/17 Digoxin [Lanoxin 0.125 mg Tablet] 0.125 mg PO DAILY 06/23/17 Potassium Chloride [Klor-Con 10 Meq Tablet.sa] 20 meq PO BID 06/23/17 Aspirin [Ecotrin 81 mg EC Tablet] 81 mg PO DAILY tabec 07/03/17 Atorvastatin Calcium [Lipitor 40 mg Tablet] 40 mg PO QHS 30 Days tablet Carvedilol [Coreg 6.25 mg Tablet] 6.25 mg PO Q12 30 Days #60 tablet 07/03/17 Sacubitril/Valsartan [Entresto 24 mg/26 mg Tablet] 1 tab PO Q12 30 Days #60 tablet 07/03/17 Torsemide [Demadex 20 mg Tablet] 20 mg PO DAILY 30 Days #30 tablet 07/03/17 History of Present Illness History of Present Illness: GRETEL MYLES is a 56 year old malePresented to emergency room complaining of having shortness of breath for the past 5-6 month however got worse since last night. Patient states that he went to sleep and upon awakening the shortness of breath was worse. It was so severe that he threw up. He does not describe chest pain. Accordingly he has not been taking his regular medication for the past 6 months. He had [facility] but they had to cancel his appointments in the past. In addition he was not given refill for his medications. He does not have insurance however states that he can go to [facility] and get the medications if he had refills. Most of his care has been rendered by coming to emergency room. Patient denies fever, chills. Patient also denies cough. Patient admits a history of heart surgery due to what it appears to be an valvular heart disease when he was younger. He also admits as to drinking alcohol but denies getting the shakes if he does not drink on a regular basis. He continues smoking and a pack would last night about 2-3 days. Patient reports some improvement. Accordingly he was saturating around 88% when evaluated in emergency room requiring to be placed on oxygen. During the course of evaluation in emergency room patient was treated with Lasix IV, duo nebs, Solu-Medrol, nitro and Rocephin. Due to comorbidities and presentation the hospitalist service was contacted for further evaluation and prompted to admit This is the original H&P dictated by Dr. Hebert. Please refer to it for any further details. Hospital Course Hospital Course: Patient presented with breathing difficulty most likely due to CHF exacerbation. Patient was started on diuretics and admitted for closer evaluation. Cardiology was consulted and recommended that patient required a LifeVest that patient has a EF of 30-35% on echo completed on 06/25/2017. We were unable to accomplish this patient. Patient was however continued on Coreg and entresto which patient seemed to tolerate. Patient was being diuresed with torsemide however pharmacy called and stated that they could only provide Lasix at this time. [facility] therefore attempts were made to transfer patient to that facility. Patient was not accepted for transfer. They asked for patient to follow-up with them as outpatient. Appointment was made. Unfortunately patient does have a problem with keeping his follow-up appointments. The that patient could possibly having a COPD exacerbation patient was started on nebulizers steroids and azithromycin. Patient was advised on smoking cessation. Patient was also counseled on alcohol cessation as patient has dilated cardiomyopathy most likely secondary to alcohol use. Patient was doing well on day of discharge. He was ambulating the halls without any shortness of breath or difficulty. Physical Exam Vital Signs: Temp Pulse Resp BP Pulse Ox 97.6 F 89 16 104/65 98 07/03/17 15:17 07/03/17 15:17 07/03/17 15:17 07/03/17 15:17 07/03/17 15:17 Intake & Output 07/02/17 07/03/17 07/04/17 06:59 06:59 06:59 Intake Total 1283 2250 620 Output Total 1075 Balance 208 2250 620 Weight 59 kg General appearance: PRESENT: no acute distress, disheveled, well-developed, well -nourished Head exam: PRESENT: normocephalic Eye exam: PRESENT: EOMI. ABSENT: scleral icterus Ear exam: PRESENT: normal external ear exam Mouth exam: PRESENT: moist Neck exam: ABSENT: carotid bruit, JVD, lymphadenopathy, thyromegaly Respiratory exam: PRESENT: clear to auscultation alisa. ABSENT: rales, rhonchi, wheezes Cardiovascular exam: PRESENT: RRR. ABSENT: diastolic murmur, rubs, systolic murmur Pulses: PRESENT: normal dorsalis pedis pul Vascular exam: PRESENT: normal capillary refill GI/Abdominal exam: PRESENT: normal bowel sounds, soft. ABSENT: distended, guarding, mass, organolmegaly, rebound, tenderness Rectal exam: PRESENT: deferred Extremities exam: PRESENT: full ROM. ABSENT: calf tenderness, clubbing, pedal edema Neurological exam: PRESENT: alert, awake, oriented to person, oriented to place , oriented to time, oriented to situation, CN II-XII grossly intact. ABSENT: motor sensory deficit Psychiatric exam: PRESENT: appropriate affect, normal mood. ABSENT: homicidal ideation, suicidal ideation Skin exam: PRESENT: dry, intact, warm. ABSENT: cyanosis, rash Results Laboratory Results: 07/01/17 09:10 07/01/17 15:20 06/23/17 06/23/17 07/01/17 15:20 21:35 09:10 Troponin I 0.019 0.014 NT-Pro-B Natriuret Pep 141 07/02/17 04:19 Troponin I NT-Pro-B Natriuret Pep 188 Impressions: Chest X-Ray 07/01/17 13:46 IMPRESSION: CARDIAC ENLARGEMENT WITHOUT FAILURE. Qualifiers - * PATEINT BEING DISCHARGED WITH ANY OF THE FOLLOWING DIAGNOSIS?: Heart Failure HF Pt being discharged on ACEI for LVEF less than 40%?: Yes HF Pt being discharged on ARBS for LVEF less than 40%?: Yes HF Pt with Afib discharged with Warfarin?: No Reason(s) for not prescribing Warfarin:: Not indicated HF Pt discharged on evidence-based Beta Johana:: Yes Plan Time Spent: Greater than 30 Minutes - Patient is to follow-up with [facility] cardiology thoracic surgery regarding definitive treatment for his mitral regurgitation.
== END 2017-07-03 18:30 | disposition home or self-care (01) | DRG 291 ==
LOC: ER 06:32 → EH 08:41 → 4N 10:53
PROVIDERS: ADMIT Emergency Medicine; ATTEND Emergency Medicine
PROC: 3E0F73Z Introduction of Anti-inflammatory into Respiratory Tract, Via Natural or Artificial Opening (ICD-10-PCS; principal; 2017-06-23)
DX: I50.43 Acute on chronic combined systolic (congestive) and diastolic (congestive) heart failure (principal); J96.01 Acute respiratory failure with hypoxia; I42.6 Alcoholic cardiomyopathy; E87.1 Hypo-osmolality and hyponatremia; E87.2 Acidosis; I11.0 Hypertensive heart disease with heart failure; J44.9 Chronic obstructive pulmonary disease, unspecified; F10.20 Alcohol dependence, uncomplicated; F12.10 Cannabis abuse, uncomplicated; I27.20 Pulmonary hypertension, unspecified; I34.0 Nonrheumatic mitral (valve) insufficiency; Z59.7 Insufficient social insurance and welfare support; T50.906A Underdosing of unspecified drugs, medicaments and biological substances, initial encounter; F17.210 Nicotine dependence, cigarettes, uncomplicated; Z91.138 Patient's unintentional underdosing of medication regimen for other reason; Z90.49 Acquired absence of other specified parts of digestive tract; Z91.19 Patient's noncompliance with other medical treatment and regimen; Z79.899 Other long term (current) drug therapy
CPT/HCPCS: 36415; 71045; 71046; 80048; 80053; 80307; 82550; 82553; 83605; 83735; 83880; 84484; 85025; 87040; 93005; 93010; 93306; 94640; 99291; J1644; J1940; J2920; J3490; J7620

== ENCOUNTER 2020-03-25 22:43 | Observation (INO) | payer SELFPAY ==
[2020-03-25] MEDS ORDERED: FUROSEMIDE INJ/PF 20 MG/2 ML SDV IV ONE (23:21)
[2020-03-25] MEDS ORDERED: BUMETANIDE INJ/PF 1 MG/4 ML SDV IV ONE (23:21)
[2020-03-25 23:31] LABS: ABSOLUTE BASOPHILS # (AUTO) 0.1 10^3/uL (0.0-0.2); ABSOLUTE EOSINOPHILS # (AUTO) 0.6 10^3/uL (0.0-0.6); ABSOLUTE LYMPHOCYTES (AUTO) 1.4 10^3/uL (0.5-4.7); ABSOLUTE MONOCYTES (AUTO) 0.7 10^3/uL (0.1-1.4); ABSOLUTE NEUT (AUTO) 4.2 10^3/uL (1.7-8.2); BASOPHILS % (AUTO) 0.9 % (0-2); EOSINOPHILS % (AUTO) 9.1 % (0-6); HEMATOCRIT 39.1 % (37.9-51.0); HEMOGLOBIN 13.2 g/dL (13.5-17.0); LYMPHOCYTES % (AUTO) 20.6 % (13-45); MEAN CORPUSCULAR HEMOGLOBIN 33.2 pg (27.0-33.4); MEAN CORPUSCULAR HGB CONC 33.7 g/dL (32.0-36.0); MEAN CORPUSCULAR VOLUME 99 fl (80-97); MONOCYTES % (AUTO) 9.4 % (3-13); PLATELET COUNT 193 10^3/uL (150-450); RED BLOOD COUNT 3.97 10^6/uL (4.35-5.55); RED CELL DISTRIBUTION WIDTH 13.5 % (11.5-14.0); TOTAL CELLS COUNTED % (AUTO) 100 %
--- NOTE | 2020-03-25 23:47 | RADIOLOGY REPORT (SQ) ---
EXAM DESCRIPTION: XR CHEST 1 VIEW COMPLETED DATE/TME: 03/25/2020 23:28 CLINICAL HISTORY: sob COMPARISON: 07/01/2017 FINDINGS: Single view of the chest is submitted. Cardiac silhouette is moderately enlarged. The lungs are mildly hyperinflated. Sternotomy wires are present. There is atelectasis at each lung base. There are scattered poorly defined regions of consolidation in each lung. No definite pneumothorax. IMPRESSION: Cardiomegaly. Subtle consolidations.
--- NOTE | 2020-03-25 23:50 | ER Document Report ---
ED Respiratory Problem - General Chief Complaint: Breathing Difficulty Stated Complaint: DIFFICULTY BREATHING Time Seen by Provider: 03/25/20 23:17 Mode of Arrival: Medic Information source: Patient Notes: 03/25/20 23:20 - ED Nursing Note by SUZETTE PEPE Num: [id number] : 1960 Patient Age: 59 patient presents to ED via EMS for c/o difficulty breathing. patient reports hx of CHF and has not been taking his medications for the past few months. patient reports he has also had a cough as well. patient alert and oriented, tachypneic, and tachycardic. this RN obtained EKG and placed patient on monitor. this RN showed EKG to Dr. Valera and notified him of patients status. MY NOTES 59-year-old male arrives by EMS. His daughter called EMS after patient became more dyspneic at home. Patient has a history of CHF since he was diagnosed with this in 2013 after he would drink a [address] Light beer on a daily basis. He also used to smoke 1 pack/day cigarettes and now only smokes a half a pack of cigarettes daily. Patient advises he has been out of his medications for about 4 months ever since his radiology scheduler Dr. Judith [facility]ers [facility] left his practice. Patient has a history of COPD that was diagnosed in 2013 as well. He also advises for the last 4 months he has been doing well and avoiding salt and cutting back on his beer and cigarettes. Today however he saw his feet and lower ankles had more edema and he advises having clear sputum cough that was more prevalent with chest pressure very reminiscent of his prior CHF events. He denies any sore throat denies any fever chills denies any COVID- 19 or exposure to the same. None of his family members are sick. He has no pets that are sick. Patient gets his medications from [facility] in [place].. TRAVEL OUTSIDE OF THE [place] IN LAST 30 DAYS: No - HPI Patient complains to provider of: CHF, COPD, Short of breath Onset: This morning Duration: Worse/persistent Severity: Mild Pain Level: 2 Context: Hx CHF Short of Breath: Mild - Related Data Allergies/Adverse Reactions: No Known Allergies Allergy (Verified 06/06/17 11:08) Past Medical History - Social History Smoking Status: Current Every Day Smoker Family History: Hypertension. denies: Reviewed & Not Pertinent - Past Medical History Cardiac Medical History: Reports: Hx Congestive Heart Failure, Hx Heart Murmur Pulmonary Medical History: Reports: Hx COPD Renal/ Medical History: Denies: Hx Peritoneal Dialysis Psychiatric Medical History: Denies: Hx Depression Past Surgical History: Reports: Hx Appendectomy, Hx Cardiac Surgery - heart surgery at age 16, Hx Vascular Surgery - Immunizations Hx Diphtheria, Pertussis, Tetanus Vaccination: No Physical Exam - Vital signs Vitals: Resp 24 H 03/25/20 23:03 Interpretation: Tachycardic, Tachypneic - General General appearance: Appears well, Alert - HEENT Head: Normocephalic, Atraumatic Eyes: Normal Pupils: PERRL Mouth/Lips: Normal Mucous membranes: Dry Pharynx: Normal Neck: Normal - Respiratory Respiratory status: Tachypnea Chest status: Nontender Breath sounds: Rales Chest palpation: Normal - Cardiovascular Rhythm: Regular Heart sounds: Normal auscultation Murmur: No - Abdominal Inspection: Normal Distension: No distension Bowel sounds: Normal Tenderness: Nontender Organomegaly: No organomegaly - Rectal Prostate: Other - deferred - Genitourinary Scrotum: Other - deferred - Back Back: Normal, Nontender - Extremities General upper extremity: Normal inspection, Nontender, Normal color, Normal ROM, Normal temperature General lower extremity: Normal inspection, Nontender, Normal color, Normal ROM, Normal temperature, Normal weight bearing. No: Nicolle's sign - Neurological Neuro grossly intact: Yes Cognition: Normal Orientation: AAOx4 [place] Coma Scale Eye Opening: Spontaneous Shivam Coma Scale Verbal: Oriented [place] Coma Scale Motor: Obeys Commands [place] Coma Scale Total: 15 Speech: Normal Motor strength normal: LUE, RUE, LLE, RLE Sensory: Normal - Psychological Associated symptoms: Normal affect, Normal mood - Skin Skin Temperature: Warm Skin Moisture: Dry Skin Color: Normal Course - Vital Signs Vital signs: Temp Pulse Resp BP Pulse Ox 98.4 F 23 H 122/93 H 96 03/25/20 23:06 03/25/20 23:06 03/25/20 23:06 03/25/20 23:06 - Laboratory Result Diagrams: 03/25/20 23:13 03/25/20 23:13 Laboratory results interpreted by me: 03/25/20 03/25/2020 23:13 23:13 23:13 RBC 3.97 L Hgb 13.2 L MCV 99 H Eos % (Auto) 9.1 H BUN 23 H Glucose 119 H NT-Pro-B Natriuret Pep 1530 H - Diagnostic Test Radiology reviewed: Reports reviewed - Cardiomegaly with subtle consolidations per radiology. - EKG Interpretation by Me EKG shows normal: Sinus rhythm Rate: Tachycardia Rhythm: Arrthymia - Heart rate 129 sinus tachycardia with nonspecific intraventricular conduction delay probable left ventricular hypertrophy. Because chest x-ray has alcoholic cardiomyopathy dilation anterior lateral Q waves probably due to LVH. This was read by myself and I agree with the EKG machine. Critical Care Note - Critical Care Note Comments: I discussed this case with Dr. Omer at 0055 and he advises he will see this patient and admit this patient. Discharge - Discharge Clinical Impression: Acute on chronic combined systolic and diastolic CHF (congestive heart failure) Cardiomyopathy Qualifiers: Cardiomyopathy type: alcoholic Qualified Code(s): I42.6 - Alcoholic cardiomyopathy COPD (chronic obstructive pulmonary disease) Qualifiers: COPD type: COPD with acute exacerbation Qualified Code(s): J44.1 - Chronic obstructive pulmonary disease with (acute) exacerbation Condition: Stable Disposition: ADMITTED INPATIENT Admitting Provider: [facility] Admitted: Telemetry Additional Instructions: Transfer this patient to medical floor per Dr. Omer
[2020-03-25 23:59] LABS: ALKALINE PHOSPHATASE 51 U/L (38-126); ANION GAP 6 (5-19); ASPARTATE AMINO TRANSFERASE 47 U/L (17-59); BILIRUBIN,DIRECT 0.1 mg/dL (0.0-0.4); BILIRUBIN,TOTAL 0.3 mg/dL (0.2-1.3); BLOOD UREA NITROGEN 23 mg/dL (7-20); CALCIUM 9.1 mg/dL (8.4-10.2); CARBON DIOXIDE 29 mmol/L (22-30); CHLORIDE 103 mmol/L (98-107); CREATINE KINASE 80 U/L (55-170); GLUCOSE 119 mg/dL (75-110); POTASSIUM 4.5 mmol/L (3.6-5.0); TOTAL PROTEIN 6.8 g/dL (6.3-8.2)
[2020-03-26 00:17] LABS: NT PRO BNP 1530 pg/mL (<125)
[2020-03-26 00:18] LABS: TROPONIN I < 0.012 ng/mL
[2020-03-26] MEDS ORDERED: DILTIAZEM HCL INJ 25 MG/5 ML VIAL IV ONE (00:23)
[2020-03-26 01:29] LABS: APPEARANCE,URINE CLEAR; BILIRUBIN,URINE NEGATIVE (NEGATIVE); COLOR,URINE STRAW; GLUCOSE, URINE NEGATIVE (NEGATIVE); KETONES,URINE NEGATIVE (NEGATIVE); LEUKOCYTE ESTERASE,URINE NEGATIVE (NEGATIVE); NITRITE,URINE NEGATIVE (NEGATIVE); PROTEIN,URINE NEGATIVE (NEGATIVE); URINE SPECIFIC GRAVITY 1.009; UROBILINOGEN,URINE NEGATIVE mg/dL (<2.0)
[2020-03-26 01:56] LABS: ARTERIAL BLOOD BASE EXCESS 3.4 mmol/L; ARTERIAL BLOOD H2CO3 2.16 mmol/L (1.05-1.35); ARTERIAL BLOOD HCO3 32.6 mmol/L (20-24); ARTERIAL BLOOD O2 SATURATION 80.2 % (94-98); ARTERIAL BLOOD PH 7.28 (7.35-7.45); ARTERIAL BLOOD PO2 51.2 mmHg (80-100); ARTERIAL BLOOD TOTAL CO2 34.8 mmol/L (23-27)
[2020-03-26 01:59] LABS: ARTERIAL BLOOD FIO2 3L
[2020-03-26 02:02] LABS: ARTERIAL BLOOD PCO2 71.7 mmHg (35-45)
[2020-03-26] MEDS ORDERED: ACETAMINOPHEN 325 MG TABLET PO PRN (02:02)
[2020-03-26] MEDS ORDERED: LEVALBUTEROL HCL NEB 0.63 MG/3 ML AMPUL NEB PRN (02:11)
--- NOTE | 2020-03-26 02:13 | PDOC H&P ---
History of Present Illness Admission Date/PCP: 03/26/20 01:21 Patient complains of: Shortness of breath History of Present Illness: GRETEL MYLES is a 59 year old male with a history of combined systolic and diastolic heart failure, alcohol induced cardiomyopathy, hyperlipidemia, tobacco dependence presents to the ED with a progressive worsening of shortness of breath. Patient reports that about 6 months back his doctor retired and since then he has not been able to refill his medication and has been out of all his medicines for about for 4 months. Since he ran out of his medication he has been feeling progressively short of breath but in the past week it got worse and he developed orthopnea and bilateral lower extremity swelling. Patient also sta adrian that he used to monitor his salt intake closely in the past but lately he has not been following his salt intake. He states that he has been feeling his heart racing over the past 2 days. He also reports that he has been having dry cough for the past 3 days. He denies any chest pain, dizziness, fall, fever, chills, nausea, vomiting, diarrhea, abdominal pain or any change in his sense of smell or taste. He denies any change in his urinary habits. Past Medical History Cardiac Medical History: Reports: Congestive Heart Failure, Heart Murmur Pulmonary Medical History: Reports: Chronic Obstructive Pulmonary Disease (COPD) Psychiatric Medical History: Denies: Depression Past Surgical History Past Surgical History: Reports: Appendectomy, Vascular Surgery Social History Information Source: Patient Smoking Status: Current Every Day Smoker Frequency of Alcohol Use: Heavy Hx Recreational Drug Use: Yes Drugs: Marijuana Hx Prescription Drug Abuse: Yes - Advance Directive Resuscitation Status: Full Code Family History Family History: Hypertension. denies: Reviewed & Not Pertinent Parental Family History Reviewed: Yes Children Family History Reviewed: Yes Sibling(s) Family History Reviewed.: Yes Medication/Allergy Home Medications: Albuterol Sulfate [Proair HFA Inhalation Aerosol 8.5 gm MDI] 2 puff IH Q6HP PRN 06/23/17 Aspirin [Aspirin EC] 81 mg PO DAILY 06/23/17 Carvedilol [Coreg 3.125 mg Tablet] 3.125 mg PO Q12 06/23/17 Digoxin [Lanoxin 0.125 mg Tablet] 0.125 mg PO DAILY 06/23/17 Potassium Chloride [Klor-Con 10 Meq Tablet ER] 20 meq PO BID 06/23/17 Aspirin [Ecotrin 81 mg EC Tablet] 81 mg PO DAILY tabec 07/03/17 Atorvastatin Calcium [Lipitor 40 mg Tablet] 40 mg PO QHS 30 Days tablet 07/03/17 Carvedilol [Coreg 6.25 mg Tablet] 6.25 mg PO Q12 30 Days #60 tablet 07/03/17 Sacubitril/Valsartan [Entresto 24 mg/26 mg Tablet] 1 tab PO Q12 30 Days #60 tablet 07/03/17 Torsemide [Demadex 20 mg Tablet] 20 mg PO DAILY 30 Days #30 tablet 07/03/17 Allergies/Adverse Reactions: No Known Allergies Allergy (Verified 06/06/17 11:08) Review of Systems Constitutional: PRESENT: as per HPI Eyes: ABSENT: visual disturbances Ears: ABSENT: hearing changes Nose, Mouth, and Throat: ABSENT: as per HPI, headache(s), mouth pain, sore throat, vertigo, other Cardiovascular: PRESENT: as per HPI Respiratory: PRESENT: as per HPI Gastrointestinal: ABSENT: abdominal pain, constipation, diarrhea, hematemesis, hematochezia, nausea, vomiting Genitourinary: ABSENT: dysuria, hematuria Musculoskeletal: ABSENT: joint swelling Integumentary: ABSENT: rash, wounds Neurological: ABSENT: abnormal gait, abnormal speech, confusion, dizziness, focal weakness, syncope Psychiatric: ABSENT: anxiety, depression, homidical ideation, suicidal ideation Endocrine: ABSENT: cold intolerance, heat intolerance, polydipsia, polyuria Hematologic/Lymphatic: ABSENT: easy bleeding, easy bruising Physical Exam Vital Signs: Temp Pulse Resp BP Pulse Ox 98.4 F 19 121/85 94 03/25/20 23:06 03/26/20 01:01 03/26/20 01:01 03/26/20 01:01 Intake & Output 03/24/20 03/25/20 03/26/20 06:59 06:59 06:59 Weight 55.9 kg Additional comments: GENERAL APPEARANCE: Alert and oriented x3, in no acute distress HEENT: Normocephalic and atraumatic. No scleral icterus. Moist oral mucosa NECK: Supple. No lymphadenopathy or tenderness. No carotid bruit. No JVD CHEST: Symmetric. Nontender to palpation. LUNGS: Clear with good air entry bilaterally. Has bilateral diffuse wheezing HEART: Cardiac, regular rate and rhythm with normal S1 and S2. Has a grade 2 diastolic murmur at the apex ABDOMEN: Flat, soft, active bowel sounds, no direct or rebound tenderness. No organomegaly detected. No CVA tenderness EXTREMITIES: No cyanosis, clubbing. Has trace pitting bilateral lower extremity edema MUSCULOSKELETAL: No deformity, atrophy or swelling noted PSYCHIATRIC: Recent and remote memory is intact. Appropriate mood and affect. SKIN: Warm, dry, and well perfused. No lesions or rashes are noted. NEUROLOGIC: No focal sensory or motor deficits are noted. Results Laboratory Results: 03/25/20 23:13 03/25/20 23:13 03/25/20 03/25/20 03/26/20 23:13 23:13 01:10 WBC 7.0 RBC 3.97 L Hgb 13.2 L Hct 39.1 MCV 99 H MCH 33.2 MCHC 33.7 RDW 13.5 Plt Count 193 Seg Neutrophils % 60.0 Carbonic Acid HCO3/H2CO3 Ratio ABG pH ABG pCO2 ABG pO2 ABG HCO3 ABG O2 Saturation ABG Base Excess FiO2 Sodium 138.2 Potassium 4.5 Chloride 103 Carbon Dioxide 29 Anion Gap 6 BUN 23 H Creatinine 1.09 Est GFR ( Amer) > 60 Glucose 119 H Lactic Acid 0.7 Calcium 9.1 Magnesium 2.2 Total Bilirubin 0.3 AST 47 Alkaline Phosphatase 51 Total Protein 6.8 Albumin 4.0 Urine Color Urine Appearance Urine pH Ur Specific [place] Urine Protein Urine Glucose (UA) Urine Ketones Urine Blood Urine Nitrite Ur Leukocyte Esterase Urine WBC (Auto) Urine RBC (Auto) 03/26/20 03/26/20 01:10 01:44 WBC RBC Hgb Hct MCV MCH MCHC RDW Plt Count Seg Neutrophils % Carbonic Acid 2.16 H HCO3/H2CO3 Ratio 15:1 ABG pH 7.28 L ABG pCO2 71.7 H* ABG pO2 51.2 L ABG HCO3 32.6 H ABG O2 Saturation 80.2 L ABG Base Excess 3.4 FiO2 3L Sodium Potassium Chloride Carbon Dioxide Anion Gap BUN Creatinine Est GFR ( Amer) Glucose Lactic Acid Calcium Magnesium Total Bilirubin AST Alkaline Phosphatase Total Protein Albumin Urine Color STRAW Urine Appearance CLEAR Urine pH 5.0 Ur Specific [place] 1.009 Urine Protein NEGATIVE Urine Glucose (UA) NEGATIVE Urine Ketones NEGATIVE Urine Blood SMALL H Urine Nitrite NEGATIVE Ur Leukocyte Esterase NEGATIVE Urine WBC (Auto) 0 Urine RBC (Auto) 0 03/25/20 03/25/20 23:13 23:13 Creatine Kinase 80 Troponin I < 0.012 NT-Pro-B Natriuret Pep 1530 H Impressions: Chest X-Ray 03/25/20 23:17 IMPRESSION: Cardiomegaly. Subtle consolidations. Assessment and Plan - Diagnosis (1) Acute respiratory failure with hypoxia and hypercapnia Is this a current diagnosis for this admission?: Yes Plan: Multifactorial due to COPD exacerbation and/or acute on chronic combined systolic and diastolic heart failure Patient has diffuse wheezing on physical exam with bibasilar crackles ABG showed a pH/PCO2/PO2 of 7.2 /54 BNP was elevated at 1530, chest x-ray showed cardiomegaly and signs of pulmonary congestion Placed patient on BiPAP and auto titrate settings Started him on steroid, Lasix, breathing treatment Repeat ABG in the morning (2) Acute on chronic combined systolic and diastolic CHF (congestive heart failure) Is this a current diagnosis for this admission?: Yes Plan: Patient has a history of cardiomyopathy from heavy alcohol use Echocardiography in 2016 showed left ventricular EF of 35% Now presents with shortness of breath, orthopnea, bilateral lower extremity swelling Has elevated BNP with chest x-ray suggesting signs of pulmonary vascular congestion Continue Lasix IV, strict I&O's, daily weight, fluid restriction Will obtain echocardiography in the morning Cardiology consult placed (3) Tachycardia Is this a current diagnosis for this admission?: Yes Plan: EKG shows a regular narrow complex tachycardia with a heart rate in the 120s and the rhythm appears to be in a flutter Likely precipitated by acute decompensation of COPD and heart failure Placed him on metoprolol 12.5 mg every 6 hourly for the first 24 hours and will adjust medication following that Continue telemetry monitoring Obtain TSH level Cardiology consult and order for echocardiography placed (4) COPD with exacerbation Is this a current diagnosis for this admission?: Yes Plan: Presents with shortness of breath and has diffuse wheezing on physical exam Started him on breathing treatment, steroid Placed on BiPAP due to hypoxic and hypercapnic respiratory failure Will repeat ABG in the morning and transition him to intranasal oxygen if improved (5) Hyperlipidemia Is this a current diagnosis for this admission?: Yes Plan: Continue atorvastatin (6) Tobacco abuse Is this a current diagnosis for this admission?: Yes Plan: Counseled on tobacco cessation Nicotine patch while inpatient - Time Time Spent with patient: 35 or more minutes Total Critical Time (Minutes): 45 Smoking Cessation Education: 3 to 10 minutes Medications reviewed and adjusted accordingly: Yes Anticipated Discharge Disposition: Home, Self Care Anticipated Discharge Timeframe: within 48 hours - Inpatient Certification Based on my medical assessment, after consideration of the patient's comorbidities, presenting symptoms, or acuity I expect that the services needed warrant INPATIENT care.: Yes I certify that my determination is in accordance with my understanding of Medicare's requirements for reasonable and necessary INPATIENT services [42 CFR 412.3e].: Yes Medical Necessity: Need Close Monitoring Due to Risk of Patient Decompensation, Need For Continuous Telemetry Monitoring, Need for Nebulizer Therapy and Monitoring of Response, Risk of Complication if Not Cared For in Hospital Post Hospital Care: D/C or Transfer Summary
[2020-03-26] MEDS: METOPROLOL TARTRATE 25 MG TABLET PO SCH ×2 (03:18→05:33)
[2020-03-26] MEDS: PREDNISONE 20 MG TABLET PO SCH ×2 (03:19→11:18)
[2020-03-26] MEDS ORDERED: NICOTINE 14 MG/24 HR PATCH.TD24 TD PRN (04:57)
[2020-03-26] MEDS ORDERED: PANTOPRAZOLE SODIUM 40 MG TABLET.DR PO SCH (06:00)
[2020-03-26] MEDS ORDERED: FUROSEMIDE INJ/PF 20 MG/2 ML SDV IV SCH (10:00)
[2020-03-26] MEDS ORDERED: ASPIRIN 81 MG TABLET, CHEWABLE PO SCH (10:00)
[2020-03-26] MEDS ORDERED: ASPIRIN 81 MG TABLET, ENT COATED PO SCH (10:00)
[2020-03-26] MEDS ORDERED: CARVEDILOL 6.25 MG TABLET PO SCH (10:00)
[2020-03-26] MEDS ORDERED: SACUBITRIL/VALSARTAN 24 MG/26 MG TABLET PO SCH (10:00)
[2020-03-26] MEDS ORDERED: LOSARTAN POTASSIUM 25 MG TABLET PO SCH (10:00)
[2020-03-26 10:29] LABS: ARTERIAL BLOOD BASE EXCESS 1.2 mmol/L; ARTERIAL BLOOD H2CO3 1.37 mmol/L (1.05-1.35); ARTERIAL BLOOD HCO3 26.7 mmol/L (20-24); ARTERIAL BLOOD O2 SATURATION 97.6 % (94-98); ARTERIAL BLOOD PCO2 45.6 mmHg (35-45); ARTERIAL BLOOD PH 7.39 (7.35-7.45); ARTERIAL BLOOD PO2 103.2 mmHg (80-100); ARTERIAL BLOOD TOTAL CO2 28.1 mmol/L (23-27)
[2020-03-26 10:31] LABS: ARTERIAL BLOOD FIO2 32%
--- NOTE | 2020-03-26 11:05 | EKG REPORT ---
SEVERITY:- ABNORMAL ECG - SINUS TACHYCARDIA NONSPECIFIC INTRAVENTRICULAR CONDUCTION DELAY PROBABLE LEFT VENTRICULAR HYPERTROPHY ANTEROLATERAL Q WAVES, PROBABLY DUE TO LVH : Confirmed by: Elliott Patel MD 26-Mar-2020 11:04:28
[2020-03-26] MEDS: ENOXAPARIN SODIUM INJ 40 MG/0.4 ML DISP.SYRIN SUBCUT SCH ×2 (11:19→11:28)
[2020-03-26] MEDS: SACUBITRIL/VALSARTAN 24 MG/26 MG TABLET PO SCH ×2 (11:19→17:36)
--- NOTE | 2020-03-26 11:22 | PDOC CONSULTATION ---
Consultation Consult Date: 03/26/20 Attending physician:: JANIA PRICE Provider Consulted: VARUN WHITFIELD History of Present Illness Admission Date/PCP: 03/26/20 01:21 Patient complains of: Shortness of breath History of Present Illness: GRETEL MYLES is a 59 year old male 59-year-old male with the following active problems 1. Congestive heart failure 2. Dilated cardiomyopathy 3. Systemic hypertension 4. Nicotine dependence-cigarettes 5. Alcohol dependence 6. Severe mitral regurgitation 7. Total anomalous pulmonary venous return 8. Surgery for congenital heart disease 1977 Patient admitted to the hospital with acute decompensated congestive heart fa ilure. Patient is not very clear on details of his history which is quite complicated. It appears that he was followed at [facility] for a while. Initially was considered for implantable cardioverter defibrillator but was found to have severe mitral regurgitation. Thus the decision to proceed with ICD was deferred and the mitral regurgitation was to be addressed. It is not clear to me why the patient stopped following. It appears that he had close follow-up with CT surgery as well as the heart failure clinic here at [facility]. At the present time he says he is out of his medications. He has significantly cut down on his cigarette use although he smokes close to a pack a day. He also drinks a 12 pack of beer but this lasted 3 days as opposed to a day. 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 This is all per notes at [facility]. Actual operative notes not available. Cardiac catheterization was negative for obstructive coronary artery disease on 11/24/2015. Severe mitral regurgitation was noted. Past Medical History Cardiac Medical History: Reports: Congestive Heart Failure, Heart Murmur Pulmonary Medical History: Reports: Chronic Obstructive Pulmonary Disease (COPD) Psychiatric Medical History: Denies: Depression Past Surgical History Past Surgical History: Reports: Appendectomy, Vascular Surgery, Other - Documented report suggest that he had complex congenital heart disease Social History Smoking Status: Current Every Day Smoker Frequency of Alcohol Use: Heavy Hx Recreational Drug Use: Yes Drugs: Marijuana Hx Prescription Drug Abuse: Yes - Advance Directive Resuscitation Status: Full Code Family History Family History: Hypertension. denies: Reviewed & Not Pertinent Parental Family History Reviewed: Yes - No familial illnesses Children Family History Reviewed: NA Sibling(s) Family History Reviewed.: NA Medication/Allergy Home Medications: No Home Medications 03/26/20 Allergies/Adverse Reactions: No Known Allergies Allergy (Verified 06/06/17 11:08) Review of Systems Ears: PRESENT: as per HPI Cardiovascular: PRESENT: dyspnea on exertion, orthropnea Respiratory: PRESENT: dyspnea Neurological: ABSENT: as per HPI, abnormal gait, abnormal movements, abnormal speech, confusion, convulsions, dizziness, focal weakness, frequent falls, lack of coordination, memory loss, numbness, paresthesias, restless legs, syncope, tingling, tremor(s), vertigo, weakness, other Hematologic/Lymphatic: ABSENT: as per HPI, easy bleeding, easy bruising, lymphadenopathy, other Physical Exam Vital Signs: Temp Pulse Resp BP Pulse Ox 97.2 F 124 H 22 H 110/80 91 L 03/26/20 07:38 03/26/20 07:38 03/26/20 07:38 03/26/20 07:38 03/26/20 07:38 Intake & Output 03/25/20 03/26/20 03/27/20 06:59 06:59 06:59 Intake Total 260 Balance 260 Weight 59.6 kg General appearance: PRESENT: cooperative, well-developed, well-nourished Head exam: PRESENT: atraumatic, normocephalic Eye exam: PRESENT: conjunctiva pink, EOMI Respiratory exam: PRESENT: symmetrical, unlabored Cardiovascular exam: PRESENT: RRR, +S1, +S2, systolic murmur - Pansystolic murmur at the apex Pulses: PRESENT: normal radial pulses GI/Abdominal exam: PRESENT: soft Rectal exam: PRESENT: deferred Neurological exam: PRESENT: alert, awake, oriented to person, oriented to place, oriented to time, oriented to situation Psychiatric exam: PRESENT: appropriate affect Skin exam: PRESENT: dry, intact Results Laboratory Results: 03/25/20 23:13 03/25/20 23:13 03/25/20 03/25/20 03/26/20 23:13 23:13 01:10 WBC 7.0 RBC 3.97 L Hgb 13.2 L Hct 39.1 MCV 99 H MCH 33.2 MCHC 33.7 RDW 13.5 Plt Count 193 Seg Neutrophils % 60.0 Carbonic Acid HCO3/H2CO3 Ratio ABG pH ABG pCO2 ABG pO2 ABG HCO3 ABG O2 Saturation ABG Base Excess FiO2 Sodium 138.2 Potassium 4.5 Chloride 103 Carbon Dioxide 29 Anion Gap 6 BUN 23 H Creatinine 1.09 Est GFR ( Amer) > 60 Glucose 119 H Lactic Acid 0.7 Calcium 9.1 Magnesium 2.2 Total Bilirubin 0.3 AST 47 Alkaline Phosphatase 51 Total Protein 6.8 Albumin 4.0 Urine Color Urine Appearance Urine pH Ur Specific [place] Urine Protein Urine Glucose (UA) Urine Ketones Urine Blood Urine Nitrite Ur Leukocyte Esterase Urine WBC (Auto) Urine RBC (Auto) 03/26/20 03/26/20 03/26/20 01:10 01:44 10:15 WBC RBC Hgb Hct MCV MCH MCHC RDW Plt Count Seg Neutrophils % Carbonic Acid 2.16 H 1.37 H HCO3/H2CO3 Ratio 15:1 19:1 ABG pH 7.28 L 7.39 ABG pCO2 71.7 H* 45.6 H ABG pO2 51.2 L 103.2 H ABG HCO3 32.6 H 26.7 H ABG O2 Saturation 80.2 L 97.6 ABG Base Excess 3.4 1.2 FiO2 3L 32% Sodium Potassium Chloride Carbon Dioxide Anion Gap BUN Creatinine Est GFR ( Amer) Glucose Lactic Acid Calcium Magnesium Total Bilirubin AST Alkaline Phosphatase Total Protein Albumin Urine Color STRAW Urine Appearance CLEAR Urine pH 5.0 Ur Specific [place] 1.009 Urine Protein NEGATIVE Urine Glucose (UA) NEGATIVE Urine Ketones NEGATIVE Urine Blood SMALL H Urine Nitrite NEGATIVE Ur Leukocyte Esterase NEGATIVE Urine WBC (Auto) 0 Urine RBC (Auto) 0 03/25/20 03/25/20 23:13 23:13 Creatine Kinase 80 Troponin I < 0.012 NT-Pro-B Natriuret Pep 1530 H EKG Comments: Lead EKG probable sinus tachycardia heart rate 129 bpm IVCD. Left ventricular hypertrophy. Impressions: Chest X-Ray 03/25/20 23:17 IMPRESSION: Cardiomegaly. Subtle consolidations. Assessment & Plan - Diagnosis (1) CHF exacerbation Qualifiers: Heart failure type: systolic Qualified Code(s): I50.9 - Heart failure, unspecified Is this a current diagnosis for this admission?: Yes Plan: Complicated history Records reviewed from visits to [facility]-heart failure clinic, electrophysi ology as well as CT surgery For the moment continue guideline directed medical therapy for congestive heart failure Emphasized volume restriction and avoidance of added salt Last available records suggest that he was being evaluated in terms of his mitral regurgitation and also being followed at heart failure clinic. For reasons not clear to me patient has been lost to follow-up I think he has to be plugged back into the clinic system in [facility] as his care is quite complex given history of congenital heart disease as well as repair and with severe regurgitation of the mitral valve which needs at further evaluation. (2) Mitral regurgitation Qualifiers: Cardiac valve disease etiology: etiology unspecified Qualified Code(s): I34.0 - Nonrheumatic mitral (valve) insufficiency Is this a current diagnosis for this admission?: Yes Plan: This needs additional work-up and evaluation perhaps at the heart failure clinic. I can coordinate and arrange for this. At the present time presents patient is euvolemic and feels better
[2020-03-26 18:09] VITALS: BP 92/67
[2020-03-26] MEDS ORDERED: ATORVASTATIN CALCIUM 40 MG TABLET PO SCH (22:00)
[2020-03-27] MEDS ORDERED: INFLUENZA QUAD (6MOS+) 2020-21 VAC 0.5 ML SYR IM ONE (08:00)
--- NOTE | 2020-03-27 20:09 | PDOC DISCHARGE SUMMARY ---
Impression - Admit/DC Date/PCP Admission Date/Primary Care Provider: 03/26/20 01:21 Discharge Date: 03/26/20 - Assessment Summary: (1) Acute respiratory failure with hypoxia and hypercapnia Is this a current diagnosis for this admission?: Yes Plan: Multifactorial due to COPD exacerbation and/or acute on chronic combined systolic and diastolic heart failure Patient has diffuse wheezing on physical exam with bibasilar crackles ABG showed a pH/PCO2/PO2 of 7.2 8/54 BNP was elevated at 1530, chest x-ray showed cardiomegaly and signs of pulmonary congestion Placed patient on BiPAP and auto titrate settings Started him on steroid, Lasix, breathing treatment Repeat ABG in the morning (2) Acute on chronic combined systolic and diastolic CHF (congestive heart failure) Is this a current diagnosis for this admission?: Yes Plan: Patient has a history of cardiomyopathy from heavy alcohol use Echocardiography in 2016 showed left ventricular EF of 35% Now presents with shortness of breath, orthopnea, bilateral lower extremity swelling Has elevated BNP with chest x-ray suggesting signs of pulmonary vascular congestion Continue Lasix IV, strict I&O's, daily weight, fluid restriction Will obtain echocardiography in the morning Cardiology consult placed (3) Tachycardia Is this a current diagnosis for this admission?: Yes Plan: EKG shows a regular narrow complex tachycardia with a heart rate in the 120s and the rhythm appears to be in a flutter Likely precipitated by acute decompensation of COPD and heart failure Placed him on metoprolol 12.5 mg every 6 hourly for the first 24 hours and will adjust medication following that Continue telemetry monitoring Obtain TSH level Cardiology consult and order for echocardiography placed (4) COPD with exacerbation Is this a current diagnosis for this admission?: Yes Plan: Presents with shortness of breath and has diffuse wheezing on physical exam Started him on breathing treatment, steroid Placed on BiPAP due to hypoxic and hypercapnic respiratory failure Will repeat ABG in the morning and transition him to intranasal oxygen if improved (5) Hyperlipidemia Is this a current diagnosis for this admission?: Yes Plan: Continue atorvastatin (6) Tobacco abuse Is this a current diagnosis for this admission?: Yes Plan: Counseled on tobacco cessation Nicotine patch while inpatient - Additional Information Resuscitation Status: Full Code Discharge Diet: As Tolerated Discharge Activity: Activity As Tolerated Referrals: VARUN WHITFIELD MD [ACTIVE STAFF] - RASHMI PASCUAL MD [COMMUNITY BASED STAFF] - Prescriptions: Albuterol Sulfate [Albuterol Sulfate Hfa] 6.7 gm IH Q6HP PRN 7 Days #2 [email or web address] PRN Reason: Aspirin [Aspirin 81 mg Chewable Tablet] 81 mg PO DAILY 30 Days #30 tab.chew Carvedilol [Coreg 6.25 mg Tablet] 6.25 mg PO Q12 30 Days #60 tablet Losartan Potassium [Cozaar 25 mg Tablet] 25 mg PO DAILY 30 Days #30 tablet Prednisone [Deltasone 20 mg Tablet] 40 mg PO DAILY 5 Days #5 tablet Furosemide [Lasix 40 mg Tablet] 40 mg PO QAM 30 Days #30 tablet Atorvastatin Calcium [Lipitor 40 mg Tablet] 40 mg PO QHS 30 Days #30 tablet Home Medications: Albuterol Sulfate [Albuterol Sulfate Hfa] 6.7 gm IH Q6HP PRN 7 Days #2 [email or web address] 03/26/20 Aspirin [Aspirin 81 mg Chewable Tablet] 81 mg PO DAILY 30 Days #30 tab.chew 03/26/20 Atorvastatin Calcium [Lipitor 40 mg Tablet] 40 mg PO QHS 30 Days #30 tablet 03/26/20 Carvedilol [Coreg 6.25 mg Tablet] 6.25 mg PO Q12 30 Days #60 tablet 03/26/20 Furosemide [Lasix 40 mg Tablet] 40 mg PO QAM 30 Days #30 tablet 03/26/20 Losartan Potassium [Cozaar 25 mg Tablet] 25 mg PO DAILY 30 Days #30 tablet 03/26/20 Prednisone [Deltasone 20 mg Tablet] 40 mg PO DAILY 5 Days #5 tablet 03/26/20 History of Present Illiness History of Present Illness: GRETEL MYLES is a 59 year old male with a history of combined systolic and diastolic heart failure, alcohol induced cardiomyopathy, hyperlipidemia, tobacco dependence presents to the ED with a progressive worsening of shortness of breath. Patient reports that about 6 months back his doctor retired and since then he has not been able to refill his medication and has been out of all his medicines for about for 4 months. Since he ran out of his medication he has been feeling progressively short of breath but in the past week it got worse and he developed orthopnea and bilateral lower extremity swelling. Patient also states that he used to monitor his salt intake closely in the past but lately he has not been following his salt intake. He states that he has been feeling his heart racing over the past 2 days. He also reports that he has been having dry cough for the past 3 days. He denies any chest pain, dizziness, fall, fever, chills, nausea, vomiting, diarrhea, abdominal pain or any change in his sense of smell or taste. He denies any change in his urinary habits. Hospital Course Hospital Course: He was seen and examined at bedside. he is off oxygen and reports feeling much better. He was restarte don his HF medications namely ARB, carvedilol, aspirin and lasix. CArdiology saw him who advised that he needs to follow up with a mutual fund manager in a [facility] like [place] or [facility] as he has a very complicated cardiac history. he was eventually discharged on guideline directed HF treatments. Physical Exam Vital Signs: Temp Pulse Resp BP Pulse Ox 98.0 F 120 H 17 92/67 L 91 L 03/26/20 15:29 03/26/20 15:29 03/26/20 15:29 03/26/20 15:29 03/26/20 15:29 Intake & Output 03/26/20 03/27/20 03/28/20 06:59 06:59 06:59 Intake Total 260 716 Output Total 775 Balance 260 -59 Weight 59.6 kg 59.6 kg General appearance: PRESENT: no acute distress, cooperative Head exam: PRESENT: atraumatic, normocephalic Eye exam: PRESENT: EOMI, PERRLA Mouth exam: PRESENT: moist Neck exam: PRESENT: full ROM Respiratory exam: PRESENT: rales, symmetrical, unlabored Cardiovascular exam: PRESENT: RRR, +S1, +S2 GI/Abdominal exam: PRESENT: normal bowel sounds, soft. ABSENT: rebound, tenderness Extremities exam: PRESENT: full ROM Musculoskeletal exam: PRESENT: full ROM Neurological exam: PRESENT: alert, awake, oriented to person, oriented to place, oriented to time, oriented to situation Psychiatric exam: PRESENT: normal mood Skin exam: PRESENT: normal color Results Laboratory Results: WBC 7.0 10^3/uL (4.0-10.5) 03/25/20 23:13 RBC 3.97 10^6/uL (4.35-5.55) L 03/25/20 23:13 Hgb 13.2 g/dL (13.5-17.0) L 03/25/20 23:13 Hct 39.1 % (37.9-51.0) 03/25/20 23:13 MCV 99 fl (80-97) H 03/25/20 23:13 MCH 33.2 pg (27.0-33.4) 03/25/20 23:13 MCHC 33.7 g/dL (32.0-36.0) 03/25/20 23:13 RDW 13.5 % (11.5-14.0) 03/25/20 23:13 Plt Count 193 10^3/uL (150-450) 03/25/20 23:13 Lymph % (Auto) 20.6 % (13-45) 03/25/20 23:13 [place] % (Auto) 9.4 % (3-13) 03/25/20 23:13 Eos % (Auto) 9.1 % (0-6) H 03/25/20 23:13 Baso % (Auto) 0.9 % (0-2) 03/25/20 23:13 Absolute Neuts (auto) 4.2 10^3/uL (1.7-8.2) 03/25/20 23:13 Absolute Lymphs (auto) 1.4 10^3/uL (0.5-4.7) 03/25/20 23:13 Absolute Monos (auto) 0.7 10^3/uL (0.1-1.4) 03/25/20 23:13 Absolute Eos (auto) 0.6 10^3/uL (0.0-0.6) 03/25/20 23:13 Absolute Basos (auto) 0.1 10^3/uL (0.0-0.2) 03/25/20 23:13 Seg Neutrophils % 60.0 % (42-78) 03/25/20 23:13 Carbonic Acid 1.37 mmol/L (1.05-1.35) H 03/26/20 10:15 HCO3/H2CO3 Ratio 19:1 03/26/20 10:15 ABG pH 7.39 (7.35-7.45) 03/26/20 10:15 ABG pCO2 45.6 mmHg (35-45) H 03/26/20 10:15 ABG pO2 103.2 mmHg (80-100) H 03/26/20 10:15 ABG HCO3 26.7 mmol/L (20-24) H 03/26/20 10:15 ABG Total CO2 28.1 mmol/L (23-27) H 03/26/20 10:15 ABG O2 Saturation 97.6 % (94-98) 03/26/20 10:15 ABG Base Excess 1.2 mmol/L 03/26/20 10:15 FiO2 32% 03/26/20 10:15 Sodium 138.2 mmol/L (137-145) 03/25/20 23:13 Potassium 4.5 mmol/L (3.6-5.0) 03/25/20 23:13 Chloride 103 mmol/L (98-107) 03/25/20 23:13 Carbon Dioxide 29 mmol/L (22-30) 03/25/20 23:13 Anion Gap 6 (5-19) 03/25/20 23:13 BUN 23 mg/dL (7-20) H 03/25/20 23:13 Creatinine 1.09 mg/dL (0.52-1.25) 03/25/20 23:13 Est GFR ( Amer) > 60 (>60) 03/25/20 23:13 Est GFR (MDRD) Non-Af > 60 (>60) 03/25/20 23:13 Glucose 119 mg/dL (75-110) H 03/25/20 23:13 Lactic Acid 0.7 mmol/L (0.7-2.1) 03/26/20 01:10 Calcium 9.1 mg/dL (8.4-10.2) 03/25/20 23:13 Magnesium 2.2 mg/dL (1.6-2.3) 03/25/20 23:13 Total Bilirubin 0.3 mg/dL (0.2-1.3) 03/25/20 23:13 Direct Bilirubin 0.1 mg/dL (0.0-0.4) 03/25/20 23:13 Neonat Total Bilirubin Not Reportable 03/25/20 23:13 Neonat Direct Bilirubin Not Reportable 03/25/20 23:13 Neonat Indirect Bili Not Reportable 03/25/20 23:13 AST 47 U/L (17-59) 03/25/20 23:13 ALT 29 U/L (<50) 03/25/20 23:13 Alkaline Phosphatase 51 U/L (38-126) 03/25/20 23:13 Creatine Kinase 80 U/L (55-170) 03/25/20 23:13 Troponin I < 0.012 ng/mL 03/25/20 23:13 NT-Pro-B Natriuret Pep 1530 pg/mL (<125) H 03/25/20 23:13 Total Protein 6.8 g/dL (6.3-8.2) 03/25/20 23:13 Albumin 4.0 g/dL (3.5-5.0) 03/25/20 23:13 Urine Color STRAW 03/26/20 01:10 Urine Appearance CLEAR 03/26/20 01:10 Urine pH 5.0 (5.0-9.0) 03/26/20 01:10 Ur Specific [place] 1.009 03/26/20 01:10 Urine Protein NEGATIVE mg/dL (NEGATIVE) 03/26/20 01:10 Urine Glucose (UA) NEGATIVE mg/dL (NEGATIVE) 03/26/20 01:10 Urine Ketones NEGATIVE mg/dL (NEGATIVE) 03/26/20 01:10 Urine Blood SMALL (NEGATIVE) H 03/26/20 01:10 Urine Nitrite NEGATIVE (NEGATIVE) 03/26/20 01:10 Urine Bilirubin NEGATIVE (NEGATIVE) 03/26/20 01:10 Urine Urobilinogen NEGATIVE mg/dL (<2.0) 03/26/20 01:10 Ur Leukocyte Esterase NEGATIVE (NEGATIVE) 03/26/20 01:10 Urine WBC (Auto) 0 /HPF 03/26/20 01:10 Urine RBC (Auto) 0 /HPF 03/26/20 01:10 U Hyaline Cast (Auto) 1 /LPF 03/26/20 01:10 Squamous Epi Cells Auto <1 /HPF 03/26/20 01:10 Urine Mucus (Auto) RARE /LPF 03/26/20 01:10 Urine Ascorbic Acid NEGATIVE (NEGATIVE) 03/26/20 01:10 Influenza A (RT-PCR) NEGATIVE (NEGATIVE) 03/26/20 00:57 Influenza B (RT-PCR) NEGATIVE (NEGATIVE) 03/26/20 00:57 RSV (RT-PCR) NEGATIVE (NEGATIVE) 03/26/20 00:57 SARS-CoV-2 Rap RNA(RT-PCR) NEGATIVE (NEGATIVE) 03/26/20 00:57 03/25/20 23:13 Troponin I < 0.012 NT-Pro-B Natriuret Pep 1530 H Impressions: Chest X-Ray 03/25/20 23:17 IMPRESSION: Cardiomegaly. Subtle consolidations. Stroke Is this a Stroke Patient?: No Acute Heart Failure Is this a Heart Failure Patient?: Yes Documentation of LVEF assessment?: Planned for after discharge LVEF: LVEF Greater Than 40% Anticoagulant Therapy: N/A Reason(s) not Discharged on Anticoagulant Therapy: Repeated falls/unsteady gait Discharged on Evidence-Based Beta Blockers: Yes Discharged on ARNI?: No-Document Contraindications Reason(s) not discharged on ARNI: ACEI use within the prior 36 hours Discharged on ARB?: Yes For LVEF <35%, discharged on Aldosterone Antagonist?: N/A (LVEF > or = 35%) Follow-up Appointment scheduled within 7 days?: Yes
== END 2020-03-26 19:53 | disposition home or self-care (01) ==
LOC: ER 22:43 → INTOOBSV 03-26 01:21 → EH 03-26 01:21 → 4S 03-26 03:40
PROVIDERS: ADMIT Student in an Organized Health Care Education/Training Program; ATTEND Internal Medicine
DX: J96.02 Acute respiratory failure with hypercapnia (principal); J96.01 Acute respiratory failure with hypoxia; I11.0 Hypertensive heart disease with heart failure; I50.43 Acute on chronic combined systolic (congestive) and diastolic (congestive) heart failure; I42.0 Dilated cardiomyopathy; I42.6 Alcoholic cardiomyopathy; J44.1 Chronic obstructive pulmonary disease with (acute) exacerbation; R00.0 Tachycardia, unspecified; E78.5 Hyperlipidemia, unspecified; F10.20 Alcohol dependence, uncomplicated; I34.0 Nonrheumatic mitral (valve) insufficiency; F17.210 Nicotine dependence, cigarettes, uncomplicated; Z87.74 Personal history of (corrected) congenital malformations of heart and circulatory system; Z20.828 Contact with and (suspected) exposure to other viral communicable diseases; Z91.14 Patient's other noncompliance with medication regimen; Z82.49 Family history of ischemic heart disease and other diseases of the circulatory system
CPT/HCPCS: 93005; 99285; 96374; 96375 ×2; 36415; 82803; 82550; 83605; 83735; 85025; 0241U ×4; 80053; 81001; 84484; 83880; 71045; 93010; 36600; 94660; 99406; G0378 ×2; J3490 ×5; J1940 ×2; J7512; C9803; J1650